=== PATIENT | male | born 1955 | race Two or more races ===

== ENCOUNTER 2024-07-01 16:40 | Inpatient (IN) | payer MEDICARE, SELFPAY ==
[2024-07-01 16:43] VITALS: BP 165/94; PULSE 75; RESP 20; TEMP 37.1; O2SAT 98; BMI 41.5
[2024-07-01 17:59] VITALS: PULSE 74; O2SAT 95; BMI 42.5
--- NOTE | 2024-07-01 18:10 | PD.EDEXREM ---
ED Extremity Problem RME/HPI General Chief complaint: Extremity Problem,Nontraumatic Stated complaint: RIGHT LEG WEAKNESS Time Seen by Provider: 07/01/24 18:08 Arrival date/time: 07/01/24 16:40 Limitations: no limitations RME / HPI RME / HPI Narrative: DR. CALLOWAY MAIN ED EVALUATION: 68-year-old male with past medical history significant for atrial fibrillation, drinks 12 beers daily, and chews tobacco presents to the Emergency Department BIBA with complaint of 3-day history of right lower extremity weakness. Related Data Home Medications ?Medication ?Instructions ?Recorded ?Confirmed cholecalciferol (vitamin D3) 50 50 mcg PO DAILY 07/01/24 07/01/24 mcg (2,000 unit) capsule diltiazem HCl 240 mg 480 mg PO Q24H 07/01/24 07/01/24 capsule,extended release 24 hr hydrochlorothiazide 12.5 mg tablet 12.5 mg PO DAILY 07/01/24 07/01/24 lisinopril 40 mg tablet 40 mg PO DAILY 07/01/24 07/01/24 rivaroxaban 20 mg tablet (Xarelto) 20 mg PO Q24H 07/01/24 07/01/24 Allergies Allergy/AdvReac Type Severity Reaction Status Date / Time No Known Allergies Allergy Verified 07/01/24 19:21 Review of Systems Review of Systems Systems Reviewed: All systems reviewed, normal except as documented Narrative Review of Systems: GEN: No fever, no chills, no weight loss EYES: No discharge, no visual changes, no pain HEENT: No ear pain, no congestion, no sore throat PULM: No shortness of breath, no cough, no congestion CV: No chest pain, no dyspnea on exertion, no palpitations GI: No nausea, no vomiting, no diarrhea, no pain, no constipation : No frequency, no urgency and no dysuria MUSC/SKEL: No joint pain, no back pain SKIN: No rash PSYCH: No hallucinations, no depression HEME/LYMPH: No easy bleeding or bruising tendencies NEURO: + right lower extremity weakness, no headache Past Medical History Past Medical History CARDIAC: Positive Atrial Fibrillation Social History SUBSTANCE USE: does not use ALCOHOL: Current (12 beers daily ) Past Medical History Comments PMH COMMENT: chewing tobacco ED Exam General Limitations: Present no limitations General appearance: Present alert, in no apparent distress and other (overweight) Head Head exam: Present atraumatic, normocephalic and normal inspection Eye Eye exam: Present normal appearance, PERRL and EOMI ENT ENT exam: Present normal exam, normal oropharynx and mucous membranes moist Neck Neck exam: Present normal inspection, full ROM and trachea midline Chest Chest inspection: Present normal inspection and symmetric chest wall rise Respiratory Respiratory exam: Present normal lung sounds bilaterally Cardiovascular Cardiovascular exam: Present regular rate, normal rhythm and normal heart sounds Abdominal Exam Abdominal exam: Present soft and normal bowel sounds Extremities Exam Extremities exam: Present normal inspection and full ROM Back Exam Back exam: Present normal inspection and full ROM Neurological Exam Neurological exam: Present alert, oriented X3 and CN II-XII intact Psychiatric Psychiatric exam: Present normal affect and normal mood Skin Skin exam: Present warm, dry, intact and normal color Course Quality Measures none Orders Category Date Time Status Miscellaneous Nursing Order X1 Care 07/01/24 18:[address] head/brain wo con Stat Exams 07/01/24 18:18 Completed CXRP [XR chest 1V portable] Stat Exams 07/01/24 18:20 Completed US liver Stat Exams 07/01/24 19:54 Completed BNP [B-Type Natriuretic Peptide] Stat Lab 07/01/24 18:22 Completed CBC Stat Lab 07/01/24 18:22 Completed CMP [Comprehensive Metabolic Panel] Stat Lab 07/01/24 18:22 Completed Drug Screen,Urine Stat Lab 07/01/24 18:19 Ordered Free T4 (Free Thyroxine) Stat Lab 07/01/24 18:22 Completed Osmolality, Urine* Stat Lab 07/01/24 Ordered PT [Prothrombin Time with INR] Stat Lab 07/01/24 18:22 Completed PTT [Partial Thromboplastin Time] Stat Lab 07/01/24 18:22 Completed Sodium,Urine Random Stat Lab 07/01/24 20:16 Completed Thyroid Stimulating Hormone Stat Lab 07/01/24 18:22 Completed Troponin I Stat Lab 07/01/24 18:22 Completed UA [Urinalysis] Stat Lab 07/01/24 20:16 Completed Urinalysis Stat Lab 07/01/24 18:13 Ordered Sodium Chloride 0.9% 500 ml [Ns] 500 ml Med 07/01/24 19:31 Discontinued IV 999 mls/hr Sodium Chloride 0.9% 500 ml [Ns] 500 ml Med 07/01/24 19:37 Discontinued IV 999 mls/hr Vital Signs Vital signs: Vital Signs Temperature 98.8 F 07/01/24 16:43 Pulse Rate 75 07/01/24 16:43 Respiratory Rate 20 07/01/24 16:43 Blood Pressure 165/94 H 07/01/24 16:43 Pulse Oximetry (%) 98 07/01/24 16:43 Oxygen Delivery Method Room Air 07/01/24 16:43 Extremity Problem MDM Narrative MDM Narrative:: Alona Gu am scribing for and in the presence of Dr. Calloway. Patient data External records reviewed:: EMS form Clinical information provided by:: patient and EMS Social determinants that could affect healthcare access:: other (specify) (drinks 12 beers daily, and chews tobacco) Patient has the following chronic illnesses:: Atrial fibrillation, drinks 12 beers daily, and chews tobacco How is presenting disease/condition affected by chronic disease/condition?: uneffected by Evaluation data The following diagnostics were reviewed and interpreted by me:: lab results and radiology exam(s) Lab and/or radiology exams considered but not ordered:: none Interpretation Summary: See above under MDM narrative. RADIOLOGY Procedure(s): US liver Accession Number(s): [id number] cc: Lan Martin MD; NO PRIMARY/FAMILY,PHYSICIAN; Mariusz Martin MD~ Examination: Abdomen sonogram, Limited Date and time of exam: July 01, 2024 2010 hours INDICATIONS: Elevated liver function tests on laboratory examination today Technique: Real-time person scale transabdominal sonographic images of the upper abdomen obtained. Findings: Normal gallbladder Normal common bile duct 0.42 cm Pancreatic head measures prominent 3.7 cm Liver 20.3 cm fatty infiltration Normal hepatopedal portal venous flow Patent IVC IMPRESSION: Normal gallbladder. Pancreas measures prominent, consider CT scan abdomen and pelvis postcontrast follow-up as clinically warranted. Moderate hepatomegaly fatty liver no focal liver lesions Dictated By: Lan Martin MD Procedure(s): CT head/brain wo con Accession Number(s): [id number] cc: Lan Martin MD; NO PRIMARY/FAMILY,PHYSICIAN; Su Calloway MD~ Examination: CT brain head without contrast. 2-D sagittal coronal reconstructions Date and time of exam:July 01, 2024 1844 hours INDICATIONS: Generalized weakness, right lower extremity weakness onset today CTDI: vol (mGy):63.1 DLP: (mGycm):1312 Technique: Multiple CT axial sections of the brain have been obtained, 5 mm slice thickness. Contrast has not been administered. 2-D sagittal, coronal reconstructions have been obtained Low dose protocols were performed. One or more of the following dose reduction techniques were used; automated exposure control, adjustment of the mA and/or KV according to patient size, use of iterative reconstruction technique. Findings: No significant ventricular enlargement. Small chronic subdural hygromas noted, on the right side at the level of the lateral ventricles measuring 8 mm in thickness, on the left side at the level of the lateral ventricles measuring 2 mm in thickness Intra-axial or extra-axial acute hemorrhage density is not seen. No mass effect or midline shift Basal cisterns are not remarkable. Fourth ventricle is midline. Cranial vault intact. Impression: Negative for acute hemorrhage, mass effect or midline shift If symptoms persist, consider brain MR I stroke protocol follow-up, as clinically warranted Dictated By: Lan Martin MD Procedure(s): XR chest 1V portable Accession Number(s): [id number] cc: Lan Martin MD; NO PRIMARY/FAMILY,PHYSICIAN; Su Calloway MD~ Examination: AP chest single view TECHNIQUE: AP portable chest single view. Examination time: July 01, 20242004 hours INDICATIONS: Shortness of breath today. FINDINGS: Mild prominence of ventricles Mild opacity at the lung bases and right perihilar region Moderate vascular congestion Osseous structures intact IMPRESSION: Early right perihilar and bibasilar pneumonia Dictated By: Lan Martin MD Medications / Prescriptions Medications or Prescriptions considered but not ordered:: none Medication administrations:: Medication Administration History Acetaminophen (Acetaminophen 325 Mg Tablet) 650 mg PO Q6H PRN PRN Reason: Fever >101.5 Stop: 07/31/24 20:03 Diltiazem HCl (Diltiazem Cd 120 Mg Capcr) 240 mg PO QDAY [facility] Stop: 08/01/24 08:59 Folic Acid (Folic Acid 1 Mg Tablet) 1 mg PO BID [facility] Stop: 07/06/24 20:59 Last Admin: 07/01/24 20:59 Dose: 1 mg Documented By: SVITLANA Lisinopril (Lisinopril 20 Mg Tablet) 40 mg PO QDAY [facility] Stop: 08/01/24 08:59 Lorazepam (Lorazepam 0.5 Mg Tablet) 0.5 mg PO Q4HR PRN PRN Reason: CIWA Score 2-6 Stop: 07/06/24 20:15 Lorazepam (Lorazepam 0.5 Mg Tablet) 1 mg PO Q4HR PRN PRN Reason: CIWA SCORE 7-11 Stop: 07/06/24 20:15 Lorazepam (Lorazepam 0.5 Mg Tablet) 2 mg PO Q4HR PRN PRN Reason: CIWA SCORE 12-15 Stop: 07/06/24 20:15 Lorazepam (Lorazepam 2 Mg/Ml Vial) 1 mg IV X1 PRN PRN Reason: Breakthrough Agitation Multivitamins (Multivitamins Tablet) 1 tab PO QDAY [facility] Stop: 08/01/24 08:59 Rivaroxaban (Rivaroxaban 10 Mg Tablet) 20 mg PO QDAY [facility] Stop: 08/01/24 08:59 Thiamine HCl (Thiamine 100 Mg Tablet) 100 mg PO BID [facility] Stop: 07/06/24 20:59 Last Admin: 07/01/24 20:59 Dose: 100 mg Documented By: SVITLANA Discontinued Medications Sodium Chloride (Ns) 500 mls @ 999 mls/hr IV .Q31M ONE Stop: 07/01/24 20:01 Last Admin: 07/01/24 20:22 Dose: Not Given Documented By: SVITLANA Non-Admin Reason: Discontinued Sodium Chloride (Ns) 500 mls @ 999 mls/hr IV .Q31M ONE Stop: 07/01/24 20:07 Last Infusion: 07/01/24 21:46 Dose: Infused Documented By: Admin: 07/01/24 20:21 Dose: 999 mls/hr Documented By: SVITLANA see above if any Consultations Consultation(s) initiated? (list below): Yes Consultation #1 (Physician, Specialty, Details): Discussed test HPI, PMHx, lab, radiology results and/or management with hospitalist Dr. Martin. Will admit for further evaluation and management. Accepts patient for admission. Time: 20:04 Diagnosis Extremity Problem Differential Diagnosis: cellulitis, deep vein thrombosis of lower extremity and other (Generalized weakness, sepsis) Most likely diagnosis given after review of the tests above:: Hyponatremia Generalized weakness Admission Indicated Admission indicated?: indicated Admission Request Was there a request for admission?: Yes Admission Attestation Admission request attestation: Discussed case with [] from Hospitalist service regarding admission. Discussed patients ED course, exam findings, labs, and radiology results. The Hospitalist [agrees,declines] to accept the patient for admission. Disposition Plan Disposition Plan: Admit Discharge Plan Plan Patient Disposition: Admit Acute Care w/in Hospital Problem List Clinical Impression: Hyponatremia, Generalized weakness
--- NOTE | 2024-07-01 18:18 | XR_ITS ---
Examination: CT brain head without contrast. 2-D sagittal coronal reconstructions Date and time of exam:July 01, 2024 1844 hours INDICATIONS: Generalized weakness, right lower extremity weakness onset today CTDI: vol (mGy):63.1 DLP: (mGycm):1312 Technique: Multiple CT axial sections of the brain have been obtained, 5 mm slice thickness. Contrast has not been administered. 2-D sagittal, coronal reconstructions have been obtained Low dose protocols were performed. One or more of the following dose reduction techniques were used; automated exposure control, adjustment of the mA and/or KV according to patient size, use of iterative reconstruction technique. Findings: No significant ventricular enlargement. Small chronic subdural hygromas noted, on the right side at the level of the lateral ventricles measuring 8 mm in thickness, on the left side at the level of the lateral ventricles measuring 2 mm in thickness Intra-axial or extra-axial acute hemorrhage density is not seen. No mass effect or midline shift Basal cisterns are not remarkable. Fourth ventricle is midline. Cranial vault intact. Impression: Negative for acute hemorrhage, mass effect or midline shift If symptoms persist, consider brain MR I stroke protocol follow-up, as clinically warranted
--- NOTE | 2024-07-01 18:20 | XR_ITS ---
Examination: AP chest single view TECHNIQUE: AP portable chest single view. Examination time: July 01, 2024 2005 hours INDICATIONS: Shortness of breath today. FINDINGS: Mild prominence of ventricles Mild opacity at the lung bases and right perihilar region Moderate vascular congestion Osseous structures intact IMPRESSION: Early right perihilar and bibasilar pneumonia
[2024-07-01 18:37] LABS: Basophils % (Auto) 1 % (0-2.5); Eosinophils # (Auto) 0.1 Thou/mm3 (0.0-0.5); Eosinophils % (Auto) 1 % (0-10); Hematocrit 36.4 % (41.0-53.0); Hemoglobin 13.9 g/dL (13.5-16.0); Immature Granulocytes % (Auto) 1 % (0-0); Immature Granulocytes Auto 0.06 Thou/mm3 (0.00-0.00); Lymphocytes # (Auto) 0.8 Thou/mm3 (1.0-4.8); Lymphocytes % (Auto) 12 % (10-50); Mean Corpuscular HGB Conc 38.2 g/dl (31.0-37.0); Mean Corpuscular Hemoglobin 34.1 pg (25.0-35.0); Mean Corpuscular Volume 89 fL (80-100); Monocytes % (Auto) 14 % (0-12); Neutrophils # (Auto) 5.2 Thou/mm3 (1.8-7.7); Neutrophils % (Auto) 73 % (37-80); Nucleated Red Blood Cell % 0 /100 WBC (0); Platelet Count 176 Thou/mm3 (140-440); RDW Standard Deviation 40.4 fL (35.1-43.9); Red Blood Count 4.08 Miln/mm3 (4.50-5.90); White Blood Count 7.1 Thou/mm3 (3.8-10.6)
[2024-07-01 18:52] LABS: B-Type Natriuretic Peptide 60 pg/mL (0-100)
[2024-07-01 18:55] LABS: Alanine Aminotransferase 93 U/L (10-49); Albumin/Globulin Ratio 1.2 (1.2-2.2); Alkaline Phosphatase 72 U/L (46-116); Aspartate Amino Transferase 146 U/L (0-34); BUN/Creatinine Ratio 8 Ratio (12-20); Bilirubin,Total 1.7 mg/dL (0.3-1.2); Blood Urea Nitrogen < 5 mg/dL (9-23); Calcium 8.9 mg/dL (8.3-10.6); Calcium (Corrected) 8.9 mg/dL (8.5-10.1); Carbon Dioxide 20.5 mMol/L (20.0-31.0); Creatinine (Component) 0.6 mg/dL (0.6-1.3); Globulin 3.4 gm/dL (2.3-3.5); Glucose 96 mg/dL (74-106); Total Protein 7.4 gm/dL (5.7-8.2); Troponin I < 0.020 ng/mL (0.0-0.045); eGFR > 60 See Note
[2024-07-01 19:19] LABS: Anion Gap 11 (7-16); Chloride 78 mMol/L (98-107); Osmolality,Calculated 218 (275-295); Sodium 109 mMol/L (136-145)
--- NOTE | 2024-07-01 19:31 | EVENTNT_ITS ---
Documentation for date of: 07/01/24 Event Note Event Note: A 68 y/o male presented to the ER with the chief complaint of numbness in the right ankle/heel. He reported that the right ankle began to feel numb, which was associated with difficulty ambulating. He fell approximately four to five times yesterday while trying to walk, and noted that one leg did not seem strong enough to support him, leading to imbalance. He denied experiencing dizziness or head trauma during these events. The patient has a history of AFib and HTN, as well as chronic alcohol abuse. He previously underwent carpal tunnel surgery. Current medications include Lisinopril, Diltiazem, Xarelto, Hydrochlorothiazide, and Vitamin D. Social history is significant for heavy daily alcohol consumption (approximately a 12 pack daily over 10 years) and living alone. In the ER, vital signs were recorded as temp 98.8 F, HR 75, RR 20, and BP 165/94 with a GCS of 15. Laboratory results revealed sodium 109 (L), chloride 78 (L), WBC 7.1, hemoglobin 13.9, platelets 176, INR 1.5, potassium 4, BUN <5, creatinine 0.6, glucose 96, total bilirubin 1.7, AST 146 (H), and ALT 93 (H). Head CT negative for acute hemorrhage, mass effect or midline shift. The patient was admitted for management of hyponatremia. Hyponatremia #Assessment: - Likely chronic hyponatremia (Na 109) in the context of heavy alcohol use (beer potomania) and HCTZ use. - Normovolemic on exam, euvolemic labs, no acute neurologic symptoms, GCS 15. - LFTs elevated (AST > ALT), suggestive of alcoholic liver injury. #Plan: - Hold HCTZ. - Fluid restriction to 800?1000 mL/day. - Monitor serum sodium q4h, avoid correction >8 mEq/L/24h. - Repeat labs at midnight: BMP. - Get urine sodium, urine osmolality. - Monitor strict I&Os, daily weights. - Consider DDAVP clamp if rapid correction noted. - Check TSH, free T4. Alcohol Use Disorder #Assessment: - Chronic alcohol use (12-pack/day x10 years), at risk for withdrawal, malnutrition, hepatic injury. - Elevated AST/ALT (AST>ALT), mild hyperbilirubinemia. - Lives alone, limited social support. #Plan: - CIWA protocol for withdrawal monitoring. - Administer thiamine, folate, multivitamins. - [facility] protocol. - Liver US. Atrial Fibrillation - Continue Xarelto.
[2024-07-01 19:33] LABS: INR 1.5 (0.9-1.3); Partial Thromboplastin Time 43.6 Seconds (22.0-36.0); Prothrombin Time 15.6 Seconds (9.0-12.2)
--- NOTE | 2024-07-01 19:54 | XR_ITS ---
Examination: Abdomen sonogram, Limited Date and time of exam: July 01, 2024 2010 hours INDICATIONS: Elevated liver function tests on laboratory examination today Technique: Real-time person scale transabdominal sonographic images of the upper abdomen obtained. Findings: Normal gallbladder Normal common bile duct 0.42 cm Pancreatic head measures prominent 3.7 cm Liver 20.3 cm fatty infiltration Normal hepatopedal portal venous flow Patent IVC IMPRESSION: Normal gallbladder. Pancreas measures prominent, consider CT scan abdomen and pelvis postcontrast follow-up as clinically warranted. Moderate hepatomegaly fatty liver no focal liver lesions
--- NOTE | 2024-07-01 20:07 | EKG_ITS ---
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1955 Requested By: Mariusz Corey Order Number: [id number] Reading MD: Mariusz Corey Measurements Intervals [place] Rate: 63 P: 246 MD: 145 QRS: -57 QRSD: 200 T: -30 QT: 512 QTc: 525 Interpretive Statements ECTOPIC ATRIAL RHYTHM WITH OCCASIONAL VENTRICULAR PREMATURE COMPLEXES RIGHT BUNDLE BRANCH BLOCK [120+ ms QRS DURATION, UPRIGHT V1, 40+ ms S IN I/aVL/V4/V5/V6] LEFT ANTERIOR FASCICULAR BLOCK [QRS AXIS <= -45, QR IN I, RS IN II] ST DEVIATION AND MODERATE T-WAVE ABNORMALITY, CONSIDER LATERAL ISCHEMIA [-0.1+ mV T-WAVE IN I/aVL/V5/V6] No previous ECG available for comparison /store/S0/[id number].pdf
[2024-07-01] MEDS: SODIUM CHLORIDE 0.9% 500 ML 500 ML 999 ML IV (20:21)
[2024-07-01 20:33] LABS: Collection Type, Urine Clean Catch
[2024-07-01 20:35] LABS: Free T4 (Free Thyroxine) 1.44 ng/dL (0.89-1.76); Thyroid Stimulating Hormone 0.98 uIU/mL (0.55-4.78)
--- NOTE | 2024-07-01 20:39 | ESHP_ITS ---
Documentation for date of: 07/01/24 HPI History of Present Illness History of present illness: Christina is a 68 y/o male with PMHx hypertension, hyperlipidemia, morbid obesity, A- fib (on Xarelto) who comes for an evaluation of right foot weakness, numbness and tingling and after having multiple ground-level falls. Patient reports he has never had symptoms like this before. He reports that 3 days ago he started having the symptoms of weakness in his right foot and felt that his gait was being impaired and felt like he was susceptible to falling. He reports that he had 4 falls in and outside the house, with no head trauma. He is unsure why that his foot has been having some weakness. He said that he decided to come down to see his sister because he felt like he could not take care of himself at home as he lives in [facility] and his sister lives here. He says that he normally eats well, however lately has been eating less and usually likes to cook on his own and make soup and a variety of things. 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 He says that he has had low sodium levels before. He also says that since 10 PM yesterday he has had about 12 beers and that he has been drinking heavy for the past 10 years about a 12 pack every night. Denies having any chest pain, shortness of breath, vomiting, headache, visual or auditory hallucinations or feeling as if his heart is racing. He denies any recent travel or sick contacts. He is not diabetic. No other complaints at this time ED Course: He arrived to the ED with a temperature of 98.8, heart rate 75, respiratory rate 20, blood pressure 165/94, saturating 98% on room air. He was worked up was found to have a sodium level of 109, potassium 4, chloride 78, bicarb 21, BUN/creatinine of 5 and 0.6 respectively, glucose 96, white count 7.4, hemoglobin 14, osmolarity 218, calcium 9.8, AST ALT 146 and 98 respectively, troponin negative x 1, T. bili 1.7, PT 15.6, INR 1.5, PTT 43.6, urinalysis showed random sodium of 17. Head CT was negative for acute hemorrhage, mass effect or midline shift. Chest x-ray showed early bibasilar and right perihilar Pneumonia. He was given 1 L bolus NS. Medicine was consulted and patient admitted to the floors. PMHx: As above Surgeries: Carpal tunnel surgery Meds: Hydrochlorothiazide 12.5, lisinopril 40 mg, Cardizem 240 mg 2 tabs once a day, vitamin D3, Xarelto 20 mg Allergies: No known allergies Family Hx: He is adopted however he knows that his dad had a heart attack in his 30s and in his early 60s. His mom of a stroke in her early 70s. He says his sister has trigeminal neuralgia and osteoarthritis. Social Hx: He grew up in [place], has 2 kids, one son and daughter, his son . He worked as a [employer] and is recently retired. He has been a heavy drinker all his life, however has drink really heavy for the past 10 years. Denies any drug history. Smoked about half a pack a day for 20 years, however he does not smoke but he chews tobacco currently. Review of Systems Review of Systems Narrative Review of Systems: Constitutional: No fever, chills, fatigue, weakness, weight loss HEENT: No eye pain, vision loss, ear pain, hearing loss, dysphagia, Cardiovascular: No chest pain, palpitations, edema, pain with walking Respiratory: No cough, shortness of breath, wheezing GI: No NVD, abdominal pain, constipation, blood in stool, loss of appetite, heartburn Extremities: No presence of pitting edema MSK: No back pain, joint pain, joint swelling Neuro: No dizziness, positive right foot numbness, positive right foot weakness, headaches, seizures, tremors Psych: No anxiety, depression Exam Vital Signs Temp Pulse Resp BP Pulse Ox O2 Del Method 98.8 F 75 20 165/94 H 98 Room Air 07/01/24 16:43 07/01/24 16:43 07/01/24 16:43 07/01/24 16:43 07/01/24 16:43 07/01/24 16:43 Narrative Exam General: AAOx3, NAD, morbidly obese male, bearded. HEENT: Moist mucous membranes, conjunctiva clear, EOMI, PERRLA. Cardiovascular: Possible murmur heard over left upper sternal border, radial pulses +2 bilat, RRR. Pulmonary: CTAB bilat no cough, no wheezing. GI: Slight distention of abdomen, no caput medusae, bowel sounds heard, no tenderness to palpation. Extremities: No presence of trace or pitting edema in lower extremities bilaterally, dorsalis pedis pulses +2 bilaterally. Neuro: AAOx3, no focal motor or sensory deficits in the UE or LE bilat, R foot has no focal or sensory deficits at this time. Psych: Good judgement, thought and behavior. Cooperative. No active visual or auditory hallucinations. Results: Labs 07/01/24 18:22 07/02/24 01:03 Labs: Short CBC 07/01/24 Range/Units 18:22 WBC 7.1 (3.8-10.6) Thou/mm3 Hgb 13.9 (13.5-16.0) g/dL Hct 36.4 L (41.0-53.0) % Plt Count 176 (140-440) Thou/mm3 BMP 07/01/24 18:22 Sodium 109 L* Potassium 4.0 Chloride 78 L* Carbon Dioxide 20.5 BUN < 5 L Creatinine 0.6 Glucose 96 Calcium 8.9 Cardiac Enzymes 07/01/24 Range/Units 18:22 Troponin I < 0.020 (0.0-0.045) ng/mL Liver Function 07/01/24 Range/Units 18:22 Total Bilirubin 1.7 H (0.3-1.2) mg/dL AST 146 H (0-34) U/L ALT 93 H (10-49) U/L Alkaline Phosphatase 72 (46-116) U/L Albumin 4.0 (3.4-4.8) gm/dL Quality Measures Quality Measures none Advance care planning discussed with:: patient and sibling Medications Home Medications and Allergies Home Medications ?Medication ?Instructions ?Recorded ?Confirmed ?Type cholecalciferol (vitamin D3) 50 50 mcg PO DAILY 07/01/24 History mcg (2,000 unit) capsule diltiazem HCl 240 mg 480 mg PO Q24H 07/01/2406/05 History capsule,extended release 24 hr hydrochlorothiazide 12.5 mg tablet 12.5 mg PO DAILY 07/01/24 History lisinopril 40 mg tablet 40 mg PO DAILY 07/01/2406/05 History rivaroxaban 20 mg tablet (Xarelto) 20 mg PO Q24H 07/0107/01/24 History Allergies Allergy/AdvReac Type Severity Reaction Status Date / Time No Known Allergies Allergy Verified 07/01/24 19:21 Visit Medications Acetaminophen (Acetaminophen 325 Mg Tablet) 650 mg PO Q6H PRN PRN Reason: Fever >101.5 Stop: 07/31/24 20:03 Diltiazem HCl (Diltiazem Cd 120 Mg Capcr) 240 mg PO QDAY [facility] Stop: 08/01/24 08:59 Folic Acid (Folic Acid 1 Mg Tablet) 1 mg PO BID [facility] Stop: 07/06/24 20:59 Lisinopril (Lisinopril 20 Mg Tablet) 40 mg PO QDAY [facility] Stop: 08/01/24 08:59 Lorazepam (Lorazepam 0.5 Mg Tablet) 0.5 mg PO Q4HR PRN PRN Reason: CIWA Score 2-6 Stop: 07/06/24 20:15 Lorazepam (Lorazepam 0.5 Mg Tablet) 1 mg PO Q4HR PRN PRN Reason: CIWA SCORE 7-11 Stop: 07/06/24 20:15 Lorazepam (Lorazepam 0.5 Mg Tablet) 2 mg PO Q4HR PRN PRN Reason: CIWA SCORE 12-15 Stop: 07/06/24 20:15 Lorazepam (Lorazepam 2 Mg/Ml Vial) 1 mg IV X1 PRN PRN Reason: Breakthrough Agitation Multivitamins (Multivitamins Tablet) 1 tab PO QDAY [facility] Stop: 08/01/24 08:59 Rivaroxaban (Rivaroxaban 10 Mg Tablet) 20 mg PO QDAY [facility] Stop: 08/01/24 08:59 Thiamine HCl (Thiamine 100 Mg Tablet) 100 mg PO BID [facility] Stop: 07/06/24 20:59 Discontinued Medications Sodium Chloride (Ns) 500 mls @ 999 mls/hr IV .Q31M ONE Stop: 07/01/24 20:01 Last Admin: 07/01/24 20:22 Dose: Not Given Sodium Chloride (Ns) 500 mls @ 999 mls/hr IV .Q31M ONE Stop: 07/01/24 20:07 Last Admin: 07/01/24 20:21 Dose: 999 mls/hr Assessment & Plan Plan Assessment Christina is a 68 y/o male with PMHx hypertension, hyperlipidemia, morbid obesity, A- fib (on Xarelto) who is admitted for acute on chronic severe hyponatremia. #Acute on Chronic severe Hyponatremia Likely chronic hyponatremia (Na 109) in the context of heavy alcohol use (beer potomania) and HCTZ use. Normovolemic on exam, euvolemic labs, no acute neurologic symptoms, GCS 15. LFTs elevated (AST > ALT), suggestive of alcoholic liver injury. Pt is not altered at this point, AAOx3, however will still require frequent sodium checks Plan: - Hold HCTZ. - Fluid restriction to 800?1000 mL/day. - Monitor serum sodium q4h, avoid correction >8 mEq/L/24h. - Trend Sodium - Get urine sodium, urine osmolality. - Monitor strict I&Os, daily weights. - Consider DDAVP clamp if rapid correction noted. - Check TSH, free T4 - Neurochecks - Seizure precautions #A-fib [id number]: 3 Rate: Controlled Rhythm: Regular at this point AC: Xarleto 20 Unsure pt's heart failure status No echo on file Plan: - Continue with Xarelto 20 mg qday - Keep magnesium and potasium above 2 and 4 respectively to avoid any cardiac arrythmias - Consider cardio consult #Elevated transaminases #Prominent pancreatic head #Alcohol Use Disorder Chronic alcohol use (12-pack/day x10 years), at risk for withdrawal, malnutrition, hepatic injury. Elevated AST/ALT (AST>ALT 2:1 in alcoholic fashion), mild hyperbilirubinemia, PT/INR slightly elevated Lives alone, limited social support. Plan: - [facility] protocol for withdrawal monioring. - Administer thiamine, folate, multivitamins - [facility] protocol - Liver US - Consider GI consult - Consider MRI liver - Trend LFTs #Hypertension #Hyperlipidemia Chronic Not taking statin Plan: ? Holding blood pressure medicines as blood pressures soft at this point ? F/u Lipid panel #Hx of NISREEN #Hx of morbid obesity Plan: - Resumed CPAP HS #Nicotine dependence Plan: - Nicotine patch - Discussed smoking cessation - Consider Chantix outpatient #Health Maintenance Disposition: Telemetry DVT prophylaxis: Xarelto GI prophylaxis: None indicated at this time Diet: Cardiac CODE STATUS: Full Patient seen and care discussed with my attending physician, Dr. Mario Michel, PGY-1 Attending Provider Attestation/Addendum Pt was evaluated and plan formulated together with the housestaff team. I have reviewed the residents note above and agree with most of its content. Please refer to the residents note for additional details.
[2024-07-01 20:53] LABS: Bacteria,Urine 4+; Bilirubin,Urine Negative (Negative); Blood,Urine Negative (Negative); Clarity,Urine Turbid (Clear/Hazy); Color,Urine Yellow (Lt Yel-Yel); Glucose, Urine Negative (Negative); Ketones,Urine Trace (Negative); Leukocyte Esterase,Urine Negative (Negative); Nitrite,Urine Negative (Negative); Protein,Urine Negative (Neg - Trace); RBC,Urine 2 /hpf (0-3); Specific Gravity,Urine 1.011 (1.001-1.035); Squamous Epithelial Cell,Urine 1 /hpf (0-5); WBC,Urine 4 /hpf (0-5)
[2024-07-01] MEDS: THIAMINE 100 MG TABLET PO (20:59)
[2024-07-01] MEDS: FOLIC ACID 1 MG TABLET PO (20:59)
[2024-07-01 21:08] VITALS: BP 114/63; PULSE 63; RESP 19; O2SAT 99
[2024-07-01 22:45] VITALS: BP 141/90; PULSE 66; RESP 18; TEMP 36.3; O2SAT 98
[2024-07-01 23:14] LABS: Sodium 111 mMol/L (136-145)
[2024-07-02] VITALS (9 sets, daily range): BP systolic 119–145; BP diastolic 70–91; PULSE 53–279; RESP 14–38; TEMP 36.1–36.3; O2SAT 95–99; BMI 43.9
[2024-07-02 01:30] LABS: Sodium 110 mMol/L (136-145)
[2024-07-02] MEDS: NICOTINE PATCH 14 MG/24 HR PATCH.TD24 TOP (01:53)
[2024-07-02 03:58] LABS: Sodium 112 mMol/L (136-145)
[2024-07-02 05:53] LABS: Basophils % (Auto) 1 % (0-2.5); Eosinophils # (Auto) 0.1 Thou/mm3 (0.0-0.5); Eosinophils % (Auto) 2 % (0-10); Hemoglobin 13.6 g/dL (13.5-16.0); Immature Granulocytes % (Auto) 1 % (0-0); Immature Granulocytes Auto 0.03 Thou/mm3 (0.00-0.00); Lymphocytes # (Auto) 0.7 Thou/mm3 (1.0-4.8); Lymphocytes % (Auto) 12 % (10-50); Mean Corpuscular HGB Conc 37.8 g/dl (31.0-37.0); Mean Corpuscular Hemoglobin 34.1 pg (25.0-35.0); Mean Corpuscular Volume 90 fL (80-100); Monocytes # (Auto) 0.7 Thou/mm3 (0.0-0.8); Monocytes % (Auto) 13 % (0-12); Neutrophils # (Auto) 4.1 Thou/mm3 (1.8-7.7); Neutrophils % (Auto) 72 % (37-80); Nucleated Red Blood Cell % 0 /100 WBC (0); Platelet Count 143 Thou/mm3 (140-440); RDW Standard Deviation 41.1 fL (35.1-43.9); Red Blood Count 3.99 Miln/mm3 (4.50-5.90); White Blood Count 5.7 Thou/mm3 (3.8-10.6)
[2024-07-02 06:07] LABS: Glucose Estimated Average 100 mg/dL (80-131); Hemoglobin A1C 5.1 % Hgb (4.8-6.0)
[2024-07-02 06:30] LABS: Cardiac Risk Estimate 2.2 RATIO (4.0-6.7); Cholesterol 110 mg/dL (132-200); HDL Cholesterol 51 mg/dL (40-60); LDL Cholesterol,Calculated 47 mg/dL (0-130); Thyroid Stimulating Hormone 1.37 uIU/mL (0.55-4.78); Triglycerides 58 mg/dL (30-150)
[2024-07-02 06:35] LABS: Sodium 114 mMol/L (136-145)
[2024-07-02] MEDS: DEXTROSE 5%-WATER 500 ML 250 ML IV (07:14)
[2024-07-02 08:07] LABS: Alanine Aminotransferase 89 U/L (10-49); Albumin, Serum 3.8 gm/dL (3.4-4.8); Albumin/Globulin Ratio 1.2 (1.2-2.2); Alkaline Phosphatase 74 U/L (46-116); Anion Gap 6 (7-16); Aspartate Amino Transferase 135 U/L (0-34); BUN/Creatinine Ratio 7 Ratio (12-20); Bilirubin,Total 2.5 mg/dL (0.3-1.2); Blood Urea Nitrogen 5 mg/dL (9-23); Calcium 8.5 mg/dL (8.3-10.6); Calcium (Corrected) 8.7 mg/dL (8.5-10.1); Carbon Dioxide 23.8 mMol/L (20.0-31.0); Chloride 85 mMol/L (98-107); Creatinine (Component) 0.7 mg/dL (0.6-1.3); Globulin 3.2 gm/dL (2.3-3.5); Glucose 102 mg/dL (74-106); Osmolality,Calculated 230 (275-295); Potassium 3.7 mMol/L (3.4-5.1); eGFR > 60 See Note
[2024-07-02 08:09] LABS: Sodium 115 mMol/L (136-145)
[2024-07-02] MEDS: DILTIAZEM CD 120 MG CAPCR 240 MG PO (08:12)
[2024-07-02] MEDS: DESMOPRESSIN ACETATE 4 MCG/ML VIAL IV (08:13)
[2024-07-02] MEDS: FOLIC ACID 1 MG TABLET PO ×2 (08:13→20:40)
[2024-07-02] MEDS: MULTIVITAMINS TABLET 1 TAB PO (08:13)
[2024-07-02] MEDS: THIAMINE 100 MG TABLET PO ×2 (08:13→20:40)
[2024-07-02] MEDS: Lisinopril 20 MG TABLET 40 MG PO (08:13)
[2024-07-02 09:09] LABS: Collection Type, Urine Catheter; Squamous Epithelial Cell,Urine 0 /hpf (0-5)
[2024-07-02 09:23] LABS: Sodium 116 mMol/L (136-145)
--- NOTE | 2024-07-02 09:42 | ESCONSULT_ITS ---
<Statement entered by Miguel Ángel Fitzpatrick MD - 07/03/24 11:22> TOTAL CC TIME: 45 MIN I saw and evaluated the patient. I reviewed the resident?s note and agree with findings and plan as documented in the resident?s note. Upon my evaluation, this patient had a high probability of imminent or life- threatening deterioration due to severe hyponatremia which required my direct attention, intervention, and personal management. This time is exclusive of time spent on procedures, which are documented separately if performed. Patient has severe hyponatremia and this is likely multifactorial due to beer potomania as well as hydrochlorothiazide. Agree with the current medical therapy. Agree with DDAVP and D5W as ordered and completed. Monitor urine output carefully. Slight overcorrection noted in which should be reduced with the current free water. If subsequent sodium levels are acceptable, please consider changing labs to every 4 hours. appropriate alcohol withdrawal medications have been ordered and to be administered based on CIWA monitoring. Should the patient clinical condition worsen we will be triaged to the ICU. Nurse was informed to keep the bed rails up and fix the padding on the side rails as her seizure precaution orders ICU team will continue to follow along with you HPI Data of Consult Requesting Physician: Mariusz Martin MD Admitting Provider: Mariusz Martin MD Attending Provider: Mariusz Martin MD Primary Care Provider: Physician No Primary/Family Consult Narrative History of present illness: The patient is a 68-year-old male with a past medical history of hypertension, hyperlipidemia, morbid obesity, and atrial fibrillation on Xarelto. He presented overnight with right foot weakness, numbness, and tingling. Initial labs revealed severe hyponatremia (Na 109). He also has a history of alcohol abuse, consuming approximately 12 beers daily for the past 10 years, with his last drink being yesterday. The patient denied chest pain, shortness of breath, vomiting, headache, or visual/auditory hallucinations. Home medications include hydrochlorothiazide (a potential contributor to hyponatremia), lisinopril, Cardizem, and Xarelto. ED Course: Hemodynamically stable, saturating well on room air. Labs: Hypochloremic hypoosmolar hyponatremia, mild transaminitis likely secondary to alcohol use. Head CT: Negative for acute hemorrhage, mass, or midline shift. Management: Received 500L normal saline in the ED and was admitted for further management of hyponatremia. cc:: cc: Mariusz Martin MD Review of Systems Review of Systems Systems Reviewed: All systems reviewed, normal except as documented Exam Vital Signs Temp Pulse Resp BP Pulse Ox O2 Del Method 97.1 F 82 38 H 145/91 H 98 Room Air 07/02/24 08:00 07/02/24 08:13 07/02/24 08:00 07/02/24 08:13 07/02/24 08:00 07/02/24 08:00 Narrative Exam GENERAL: no acute distress, AAO x3, obese HEENT: Head AT/ NC. Mucous membranes moist. PERRL. NECK: Supple, no lymphadenopathy, no carotid bruits. CARDIOVASCULAR: RRR. Normal S1/S2, No m/r/g. No pitting edema of bilateral LEs. RESPIRATORY: CTAB. No wheezing, rhonchi, crackles. GASTROINTESTINAL: Abdomen soft, non tender no palpable masses. Bowel sounds present in all 4 quadrants. MUSCULOSKELETAL:? No cyanosis or edema, no visible joint swelling. NEUROLOGICAL: CN II-XII grossly intact. No focal deficits. Sensation intact, symmetric. PSYCHIATRIC: Awake and alert, not agitated, normal mood and affect. INTEGUMENTARY: No obvious rashes, no jaundice, normal turgor. Results Labs 07/02/24 04:55 07/02/24 08:56 Labs: Short CBC 07/01/24 07/02/24 Range/Units 18:22 04:55 WBC 7.1 5.7 (3.8-10.6) Thou/mm3 Hgb 13.9 13.6 (13.5-16.0) g/dL Hct 36.4 L 36.0 L (41.0-53.0) % Plt Count 176 143 D (140-440) Thou/mm3 BMP 07/01/24 07/01/24 07/02/24 18:22 22:47 01:03 Sodium 109 L* 111 L* 110 L* Potassium 4.0 Chloride 78 L* Carbon Dioxide 20.5 BUN < 5 L Creatinine 0.6 Glucose 96 Calcium 8.9 07/02/24 07/02/24 07/02/24 03:05 04:55 07:18 Sodium 112 L* 114 L* Cancelled Potassium Chloride Carbon Dioxide BUN Creatinine Glucose Calcium 07/02/24 07/02/24 07:18 08:56 Sodium 115 L* 116 L* Potassium 3.7 Chloride 85 L Carbon Dioxide 23.8 BUN 5 L Creatinine 0.7 Glucose 102 Calcium 8.5 Cardiac Enzymes 07/01/24 Range/Units 18:22 Troponin I < 0.020 (0.0-0.045) ng/mL Liver Function 07/01/24 07/02/24 Range/Units 18:22 07:18 Total Bilirubin 1.7 H 2.5 H D (0.3-1.2) mg/dL AST 146 H 135 H (0-34) U/L ALT 93 H 89 H (10-49) U/L Alkaline Phosphatase 72 74 (46-116) U/L Albumin 4.0 3.8 (3.4-4.8) gm/dL Urine 07/01/24 Range/Units 20:16 Urine Color Yellow (Lt Yel-Yel) Urine Clarity Turbid A (Clear/Hazy) Urine pH 6.0 (5.0-7.0) Ur Specific [facility] 1.011 (1.001-1.035) Urine Protein Negative (Neg - Trace) Urine Glucose (UA) Negative (Negative) Quality Measures Quality Measures none Advance care planning discussed with:: patient Medications Home Medications and Allergies Home Medications ?Medication ?Instructions ?Recorded ?Confirmed ?Type cholecalciferol (vitamin D3) 50 50 mcg PO DAILY 07/01/24 History mcg (2,000 unit) capsule diltiazem HCl 240 mg 480 mg PO Q24H 07/01/2406/05 History capsule,extended release 24 hr hydrochlorothiazide 12.5 mg tablet 12.5 mg PO DAILY 07/01/24 History lisinopril 40 mg tablet 40 mg PO DAILY 07/01/2406/05 History rivaroxaban 20 mg tablet (Xarelto) 20 mg PO Q24H 07/0107/01/24 History Allergies Allergy/AdvReac Type Severity Reaction Status Date / Time No Known Allergies Allergy Verified 07/01/24 19:21 Visit Medications Acetaminophen (Acetaminophen 325 Mg Tablet) 650 mg PO Q6H PRN PRN Reason: Fever >101.5 Stop: 07/31/24 20:03 Diltiazem HCl (Diltiazem Cd 120 Mg Capcr) 240 mg PO QDAY [facility] Stop: 08/01/24 08:59 Last Admin: 07/02/24 08:12 Dose: 240 mg Folic Acid (Folic Acid 1 Mg Tablet) 1 mg PO BID [facility] Stop: 07/06/24 20:59 Last Admin: 07/02/24 08:13 Dose: 1 mg Dextrose (D5w) 500 mls @ 75 mls/hr IV .Q6H40M [facility] Stop: 07/03/24 09:29 Lisinopril (Lisinopril 20 Mg Tablet) 40 mg PO QDAY [facility] Stop: 08/01/24 08:59 Last Admin: 07/02/24 08:13 Dose: 40 mg Lorazepam (Lorazepam 0.5 Mg Tablet) 0.5 mg PO Q4HR PRN PRN Reason: CIWA Score 2-6 Stop: 07/06/24 20:15 Lorazepam (Lorazepam 0.5 Mg Tablet) 1 mg PO Q4HR PRN PRN Reason: CIWA SCORE 7-11 Stop: 07/06/24 20:15 Lorazepam (Lorazepam 0.5 Mg Tablet) 2 mg PO Q4HR PRN PRN Reason: CIWA SCORE 12-15 Stop: 07/06/24 20:15 Lorazepam (Lorazepam 2 Mg/Ml Vial) 1 mg IV X1 PRN PRN Reason: Breakthrough Agitation Multivitamins (Multivitamins Tablet) 1 tab PO QDAY [facility] Stop: 08/01/24 08:59 Last Admin: 07/02/24 08:13 Dose: 1 tab Rivaroxaban (Rivaroxaban 10 Mg Tablet) 20 mg PO WSUPPER [facility] Stop: 08/01/24 17:29 Thiamine HCl (Thiamine 100 Mg Tablet) 100 mg PO BID [facility] Stop: 07/06/24 20:59 Last Admin: 07/02/24 08:13 Dose: 100 mg Discontinued Medications Desmopressin Acetate (Desmopressin Acetate 4 Mcg/Ml Vial) 4 mcg IV X1 ONE Stop: 07/02/24 07:17 Last Admin: 07/02/24 08:13 Dose: 4 mcg Sodium Chloride (Ns) 500 mls @ 999 mls/hr IV .Q31M ONE Stop: 07/01/24 20:01 Last Admin: 07/01/24 20:22 Dose: Not Given Sodium Chloride (Ns) 500 mls @ 999 mls/hr IV .Q31M ONE Stop: 07/01/24 20:07 Last Infusion: 07/01/24 21:46 Dose: Infused Dextrose (D5w) 500 mls @ 250 mls/hr IV .Q2H [facility] Stop: 07/02/24 09:14 Last Admin: 07/02/24 07:14 Dose: 250 mls/hr Nicotine (Nicotine Patch 14 Mg/24 Hr Patch.Td24) 14 mg TOP X1 ONE Stop: 07/01/24 23:10 Last Admin: 07/02/24 01:53 Dose: 14 mg Assessment & Plan Plan 68-year-old male with past medical history of hypertension on hydrochlorothiazide, hyperlipidemia, morbidly obese, A-fib on Xarelto who was admitted for severe hypochloremic hyponatremia most likely secondary due to periorbital pneumonia combined with medication side effect. ICU Consultation (07/02/2024): The ICU team was consulted due to severe hyponatremia and concern for rapid overcorrection. -Overnight Course: No acute events. -Serum sodium increased by 6 mEq over 12 hours (109 - 115)-concern for overcorrection -Primary team intervened with 1 dose of desmopressin (DDAVP) and 500 mL D5W. ICU Team Recommendations: Acute hypoosmolar hypochloremic hyponatremia Beer potomania Medication induced hyponatremia -Continue current management. -Continue holding hydrochlorothiazide, consider discontinuing completely on discharge -Seizure precautions. -Frequent sodium monitoring (every 3 hours) to avoid further overcorrection. -Goal: Limit sodium correction to <8= mEq in 24 hours to reduce the risk of osmotic demyelination. -Maintain D5W at 75 mL/hr agreed,Follow another sodium check, and decide accordingly -Recommend DDAVP twice daily. -Fluid restriction once sodium overcorrection stabilizes. -Follow urine electrolytes -Patient upon our evaluation is AOx3, will continue close monitor, If any complications arise during the hospital course, the patient can be upgraded to the ICU for closer monitoring. -Plan: Close monitoring and gradual correction of sodium levels while minimizing the risk of complications. Frequent mental status assessments will be performed. #A-fib #Transaminitis #Prominent pancreatic head #Alcohol use disorder #Hypertension, hold hydrochlorothiazide #History of NISREEN on CPAP at night Disposition: Telemetry DVT prophylaxis: Xarelto GI prophylaxis: PPI Diet: Cardiac Lines: PIV CODE STATUS:Full code Patient care was discussed with attending physician Dr. Nanette Zayas MD PGY-2
[2024-07-02 09:50] LABS: Chloride,Urine Random < 20.0 mMol/L (55.0-125.0); Potassium,Urine Random < 10 mMol/L (12-62); Sodium,Urine Random < 10.0 mMol/L (20.0-110.0)
[2024-07-02] MEDS: DEXTROSE 5%-WATER 500 ML 75 ML IV (09:54)
[2024-07-02 09:56] LABS: Amphetamine/Methamp Scrn,U Negative (Negative); Barbiturate Screen,Urine Negative (Negative); Benzodiazepines Screen,Urine Negative (Negative); Benzoylecgonine Screen, Ur Negative (Negative); Fentanyl Screen,Urine Negative (Negative); Opiate Screen,Urine Negative (Negative); THC Screen,Urine Negative (Negative)
[2024-07-02 10:18] LABS: Bacteria,Urine 1+; Bilirubin,Urine Negative (Negative); Blood,Urine Negative (Negative); Clarity,Urine Clear (Clear/Hazy); Color,Urine Lt-Yellow (Lt Yel-Yel); Glucose, Urine Negative (Negative); Ketones,Urine Negative (Negative); Leukocyte Esterase,Urine Positive (Negative); Nitrite,Urine Negative (Negative); PH,Urine 6.5 (5.0-7.0); Protein,Urine Negative (Neg - Trace); RBC,Urine 1 /hpf (0-3); Specific Gravity,Urine 1.003 (1.001-1.035); Urobilinogen,Urine Negative mg/dL (0.0-1.0); WBC,Urine 1 /hpf (0-5)
--- NOTE | 2024-07-02 10:41 | PC.SS ---
SS met with patient who is alert/oriented. Patient was able to verify demographics. Patient states he lives out of town. He drove himself down here to see his sister. He needed his sister to help care for him. Patient lives alone out of town. Patient states he was falling frequently at home. He states he was driving and working. He was just having problems ambulating. Patient also brought up his substance use. Patient states he's been drinking for the last 30 years and more when his son . Patient states his son in 2005. Patient states he will be eventally returning home and his sister will be following him and staying with him temporarily to help care for him. SS discussed SNF and alcohol rehab resources. Patient declined alcohol rehab resources indicating he wants to stop on his own. Patient confirms he drinks beer daily, roughly 12-15 beers a day. Patient states if he does not drink daily his hands start to shake. Patient verbalized his sister is his alt medical decision maker. Sister is Monica @ [phone]. Patient was able to confirm contact. Patient was following up with his PCP out of town. Last appt. was 5 months ago. SS will follow up with patient closer to discharge. PT dilipal will recommend HH vs SNF.
[2024-07-02 11:10] LABS: Sodium 111 mMol/L (136-145)
--- NOTE | 2024-07-02 11:56 | PD.RESCONSUL ---
HPI Data of Consult Consult date: 07/02/24 Requesting Physician: Mariusz Martin MD Admitting Provider: Mariusz Martin MD Attending Provider: Mariusz Martin MD Primary Care Provider: Physician No Primary/Family Consult Narrative Reason for consult: Hyponatremia History of present illness: 68-year-old male with past medical history of morbid obesity, hypertension, hyperlipidemia, atrial fibrillation on Xarelto, chronic alcoholism presented to the hospital with chief complaints of weakness in the lower extremities and having multiple falls since 3 days. Patient reported that since his son in 2005, patient is having more alcohol intake consuming about 12 beers in a day. He recently came to [place] 4 days before the day of admission to visit his sister and started to drink 12-14 beers per day with decreased food intake. Since 3 days patient noted that he is having severe weakness in the lower extremities due to which he had difficulty in walking had multiple falls without any injury to head or spine. Denies fever, shortness of breath, nausea, vomitings, diarrhea, palpitations, syncopal episodes, involuntary movements of hands and legs. ED course: -Vitals are stable at the time of admission except for mildly elevated blood pressure 165/94 mmHg -Labs at the time of admission showed WBC 7.1, Hb 13.9, platelets 176, sodium 109, potassium 4, chloride 78, bicarb 20.5, BUN 5, creatinine 0.6, glucose 96, osmolality 218, total bilirubin 1.7, AST 146, ALT 93, TSH 0.98, free T41.44 -CT head is negative for acute hemorrhage, mass effect or midline shift chest x-ray showed mild congestion in the right lung. Nephrology is consulted for hyponatremia cc:: cc: Mariusz Martin MD Review of Systems Review of Systems Narrative Review of Systems: Constitutional: No Weight Change, No Fever, No Chills, No Night Sweats, Fatigue, Malaise ENT/Mouth: No Hearing Changes, No Ear Pain, No Nasal Congestion, No Sinus Pain, No Hoarseness, No sore throat, No Rhinorrhea, No Swallowing Difficulty Eyes: No Eye Pain, No Swelling, No Redness, No Foreign Body, No Discharge, No Vision Changes Cardiovascular: No Chest Pain, No SOB, No PND, No Dyspnea on Exertion, No Orthopnea, No Edema, No Palpitations Respiratory: No Cough, No Sputum, No Wheezing, No Dyspnea Gastrointestinal: No Nausea, No Vomiting, No Diarrhea, No Constipation, No Pain, No Heartburn, No Anorexia, No Dysphagia, No Hematochezia, No Melena, No Flatulence, No Jaundice Genitourinary: No Dysuria, No Urinary Frequency, No Hematuria, No Urinary Incontinence, No Urgency, No Flank Pain, No Urinary Flow Changes, No Hesitancy Musculoskeletal: No Arthralgias, No Myalgias, No Joint Swelling, No Joint Stiffness, No Back Pain, No Neck Pain, No Injury History Skin: No Skin Lesions, No Pruritis Neuro: No Weakness, No Numbness, No Paresthesias, No Loss of Consciousness, No Syncope, Dizziness, Headache, No Coordination Changes, No Recent Falls Past Medical History Past Medical History CARDIAC: Positive Atrial Fibrillation Social History SUBSTANCE USE: does not use ALCOHOL: Current (12 beers daily ) Past Medical History Comments PMH COMMENT: chewing tobacco Exam Vital Signs Temp Pulse Resp BP Pulse Ox O2 Del Method 97.1 F 82 38 H 145/91 H 98 Room Air 07/02/24 08:00 07/02/24 08:13 07/02/24 08:00 07/02/24 08:13 07/02/24 08:00 07/02/24 08:00 Narrative Exam General: Awake. Morbidly obese HEENT: Normocephalic, atraumatic, mucous membranes moist. Heart: Irregular rate and rhythm, no murmurs. Lungs: Clear to auscultation with no wheezing or crackles. Abdomen: Soft, nondistended, nontender, positive bowel sounds. ?No guarding or rebound tenderness. Neurologic: Alert and oriented x3, no gross neurological deficit, and patient able to move all 4 extremities. Extremities: No edema. Skin: No rash or ecchymoses. Results Labs 07/02/24 04:55 07/02/24 17:47 Labs: Short CBC 07/01/24 07/02/24 Range/Units 18:22 04:55 WBC 7.1 5.7 (3.8-10.6) Thou/mm3 Hgb 13.9 13.6 (13.5-16.0) g/dL Hct 36.4 L 36.0 L (41.0-53.0) % Plt Count 176 143 D (140-440) Thou/mm3 [facility] 07/01/24 07/01/24 07/02/24 18:22 22:47 01:03 Sodium 109 L* 111 L* 110 L* Potassium 4.0 Chloride 78 L* Carbon Dioxide 20.5 BUN < 5 L Creatinine 0.6 Glucose 96 Calcium 8.9 07/02/24 07/02/24 07/02/24 03:05 04:55 07:18 Sodium 112 L* 114 L* Cancelled Potassium Chloride Carbon Dioxide BUN Creatinine Glucose Calcium 07/02/24 07/02/24 07/02/24 07:18 08:56 10:15 Sodium 115 L* 116 L* 111 L* Potassium 3.7 Chloride 85 L Carbon Dioxide 23.8 BUN 5 L Creatinine 0.7 Glucose 102 Calcium 8.5 Cardiac Enzymes 07/01/24 Range/Units 18:22 Troponin I < 0.020 (0.0-0.045) ng/mL Liver Function 07/01/24 07/02/24 Range/Units 18:22 07:18 Total Bilirubin 1.7 H 2.5 H D (0.3-1.2) mg/dL AST 146 H 135 H (0-34) U/L ALT 93 H 89 H (10-49) U/L Alkaline Phosphatase 72 74 (46-116) U/L Albumin 4.0 3.8 (3.4-4.8) gm/dL Urine 07/01/24 07/02/24 Range/Units 20:16 07:40 Urine Color Yellow Lt-Yellow (Lt Yel-Yel) Urine Clarity Turbid A Clear (Clear/Hazy) Urine pH 6.0 6.5 (5.0-7.0) Ur Specific [place] 1.011 1.003 (1.001-1.035) Urine Protein Negative Negative (Neg - Trace) Urine Glucose (UA) Negative Negative (Negative) Quality Measures Quality Measures none Advance care planning discussed with:: patient Medications Home Medications and Allergies Home Medications ?Medication ?Instructions ?Recorded ?Confirmed ?Type cholecalciferol (vitamin D3) 50 50 mcg PO DAILY 07/01/24 07/01/24 History mcg (2,000 unit) capsule diltiazem HCl 240 mg 480 mg PO Q24H 07/01/24 07/01/24 History capsule,extended release 24 hr hydrochlorothiazide 12.5 mg tablet 12.5 mg PO DAILY 07/01/24 07/01/24 History lisinopril 40 mg tablet 40 mg PO DAILY 07/01/24 07/01/24 History rivaroxaban 20 mg tablet (Xarelto) 20 mg PO Q24H 07/01/24 07/01/24 History Allergies Allergy/AdvReac Type Severity Reaction Status Date / Time No Known Allergies Allergy Verified 07/01/24 19:21 Visit Medications Acetaminophen (Acetaminophen 325 Mg Tablet) 650 mg PO Q6H PRN PRN Reason: Fever >101.5 Stop: 07/31/24 20:03 Diltiazem HCl (Diltiazem Cd 120 Mg Capcr) 240 mg PO QDAY [facility] Stop: 08/01/24 08:59 Last Admin: 07/02/24 08:12 Dose: 240 mg Folic Acid (Folic Acid 1 Mg Tablet) 1 mg PO BID [facility] Stop: 07/06/24 20:59 Last Admin: 07/02/24 08:13 Dose: 1 mg Dextrose (D5w) 500 mls @ 75 mls/hr IV .Q6H40M [facility] Stop: 07/03/24 09:29 Last Admin: 07/02/24 09:54 Dose: 75 mls/hr Lisinopril (Lisinopril 20 Mg Tablet) 40 mg PO QDAY [facility] Stop: 08/01/24 08:59 Last Admin: 07/02/24 08:13 Dose: 40 mg Lorazepam (Lorazepam 0.5 Mg Tablet) 0.5 mg PO Q4HR PRN PRN Reason: CIWA Score 2-6 Stop: 07/06/24 20:15 Lorazepam (Lorazepam 0.5 Mg Tablet) 1 mg PO Q4HR PRN PRN Reason: CIWA SCORE 7-11 Stop: 07/06/24 20:15 Lorazepam (Lorazepam 0.5 Mg Tablet) 2 mg PO Q4HR PRN PRN Reason: CIWA SCORE 12-15 Stop: 07/06/24 20:15 Lorazepam (Lorazepam 2 Mg/Ml Vial) 1 mg IV X1 PRN PRN Reason: Breakthrough Agitation Multivitamins (Multivitamins Tablet) 1 tab PO QDAY [facility] Stop: 08/01/24 08:59 Last Admin: 07/02/24 08:13 Dose: 1 tab Rivaroxaban (Rivaroxaban 10 Mg Tablet) 20 mg PO WSUPPER [facility] Stop: 08/01/24 17:29 Thiamine HCl (Thiamine 100 Mg Tablet) 100 mg PO BID ANTONY Stop: 07/06/24 20:59 Last Admin: 07/02/24 08:13 Dose: 100 mg Discontinued Medications Desmopressin Acetate (Desmopressin Acetate 4 Mcg/Ml Vial) 4 mcg IV X1 ONE Stop: 07/02/24 07:17 Last Admin: 07/02/24 08:13 Dose: 4 mcg Sodium Chloride (Ns) 500 mls @ 999 mls/hr IV .Q31M ONE Stop: 07/01/24 20:01 Last Admin: 07/01/24 20:22 Dose: Not Given Sodium Chloride (Ns) 500 mls @ 999 mls/hr IV .Q31M ONE Stop: 07/01/24 20:07 Last Infusion: 07/01/24 21:46 Dose: Infused Dextrose (D5w) 500 mls @ 250 mls/hr IV .Q2H ANTONY Stop: 07/02/24 09:14 Last Admin: 07/02/24 07:14 Dose: 250 mls/hr Nicotine (Nicotine Patch 14 Mg/24 Hr Patch.Td24) 14 mg TOP X1 ONE Stop: 07/01/24 23:10 Last Admin: 07/02/24 01:53 Dose: 14 mg Assessment & Plan Plan 68-year-old male with past medical history of morbid obesity, hypertension, hyperlipidemia, atrial fibrillation on Xarelto, chronic alcoholism presented to the hospital with chief complaints of weakness in the lower extremities and having multiple falls since 3 days and admitted for hyponatremia # Hyponatremia # Hypochloremia Likely beer potomania in the setting of chronic alcoholism, likely could be having mild chronic hyponatremia -Patient is on hydrochlorothiazide since 10 years for his blood pressures -Patient had history of chronic alcoholism and before admission, patient had 12-13 beers every day with minimal food intake -Patient is admitted to hospital with bilateral lower extremity weakness and multiple falls -Denies fever, nausea, vomitings, diarrhea -Baseline labs are not available -Sodium at the time of admission is 109, osmolality is 218 -TSH, free T4, glucose within normal limits Plan -Fluid restriction of 1000 mL -Strict input and output monitoring -Urine electrolytes are ordered -Sodium check every second hourly -Patient was found to have a sodium improvement from 109-116 this morning, for which patient received desmopressin dose -Recommended sodium correction of less than 10 mEq in first 24 hours #Acute on Chronic severe Hyponatremia #A-fib #Elevated transaminases #Prominent pancreatic head #Alcohol Use Disorder #Hypertension #Hyperlipidemia #Hx of NISREEN #Hx of morbid obesity #Nicotine dependence -Rest of the medical conditions to be treated as per primary team Thank you for allowing us to involved in the care of the patient Patient plan of care was discussed with the attending physician, Dr.Vemuri Eyad Zhou, PGY1 Attending Provider Attestation/Addendum Patient seen and examined with resident physician Dr. Castano. Note reviewed, agree with findings and recommendations. Patient admitted with weakness/severe hyponatremia. Sodium was 109 and improved to 114 today. Agree with giving a dose of desmopressin with close monitoring of urine output and sodium to avoid overcorrection. Patient with a significant alcohol consumption of beer. Admits to drinking 12-14 beers per day. Continue with fluid restriction and a CIWA protocol. Plan of care discussed with primary team.
[2024-07-02 12:50] LABS: Sodium 112 mMol/L (136-145)
[2024-07-02] MEDS: LORazepam 0.5 MG TABLET PO ×2 (13:47→18:16)
--- NOTE | 2024-07-02 13:55 | ESPR_ITS ---
<Statement entered by Robe Barth MD - 07/02/24 17:12> I have discussed and was present for the essential components of the history, physical examination, diagnosis, and treatment plan with the resident. I agree with the patient's care as documented by the resident and amended herein by me. Robe Barth MD FACP. Documentation for date of: 07/02/24 Subjective Subjective Interval history: Patient [facility] and [facility] No events overnight Only complains of BLE feet paresthesia Rounded with RN Exam Vital Signs Temp Pulse Resp BP Pulse Ox O2 Del Method 97.4 F 78 15 119/83 98 Room Air 07/02/24 12:00 07/02/24 12:00 07/02/24 12:00 07/02/24 12:00 07/02/24 12:00 07/02/24 12:00 Narrative Exam General: Awake. Morbidly obese HEENT: Normocephalic, atraumatic, mucous membranes moist. Heart: Irregular rate and rhythm, no murmurs. Lungs: Clear to auscultation with no wheezing or crackles. Abdomen: Soft, nondistended, nontender, positive bowel sounds. ?No guarding or rebound tenderness. Neurologic: Alert and oriented x3, no gross neurological deficit, and patient able to move all 4 extremities. Extremities: No edema. Skin: No rash or ecchymoses. Objective Labs 07/02/24 04:55 07/02/24 12:10 Labs: Laboratory Results - last 24 hr 07/01/24 07/01/24 07/01/24 18:22 20:16 22:47 WBC 7.1 RBC 4.08 L Hgb 13.9 Hct 36.4 L MCV 89 MCH 34.1 MCHC 38.2 H RDW Std Deviation 40.4 Plt Count 176 Neut % (Auto) 73 Lymph % (Auto) 12 Harris % (Auto) 14 H Eos % (Auto) 1 Baso % (Auto) 1 Neut # (Auto) 5.2 Lymph # (Auto) 0.8 L Harris # (Auto) 1.0 H Eos # (Auto) 0.1 Baso # (Auto) 0.0 Immature Gran # (Auto) 0.06 H Absolute Nucleated RBC 0.00 Immature Gran % 1 H Nucleated RBC % 0 PT 15.6 H INR 1.5 H APTT 43.6 H Sodium 109 L* 111 L* Potassium 4.0 Chloride 78 L* Carbon Dioxide 20.5 Anion Gap 11 BUN < 5 L Creatinine 0.6 Estim Creat Clear Calc 167.0 eGFR > 60 BUN/Creatinine Ratio 8 L Glucose [address] Glu mg/dL Hemoglobin A1c Calculated Osmolality 218 L Calcium 8.9 Corrected Calcium 8.9 Total Bilirubin 1.7 H AST 146 H ALT 93 H Alkaline Phosphatase 72 Troponin I < 0.020 B-Natriuretic Peptide 60 Total Protein 7.4 Albumin 4.0 Globulin 3.4 Albumin/Globulin Ratio 1.2 Triglycerides Cholesterol LDL Cholesterol, Calc HDL Cholesterol Cholesterol/HDL Ratio TSH 0.98 Free T4 1.44 Ur Collection Type Clean Catch Urine Color Yellow Urine Clarity Turbid A Urine pH 6.0 Ur Specific [place] 1.011 Urine Protein Negative Urine Glucose (UA) Negative Urine Ketones Trace Urine Blood Negative Urine Nitrite Negative Urine Bilirubin Negative Urine Urobilinogen (Auto) 2.0 Ur Leukocyte Esterase Negative Urine RBC 2 Urine WBC 4 Ur Squamous Epith Cells 1 Urine Bacteria 4+ A Ur Random Sodium 17.0 L Ur Random Potassium Ur Random Chloride Urine Opiates Screen Urine Fentanyl Screen Ur Barbiturates Screen U Amphetamin/Meth Scrn U Benzodiazepines Scrn U Cocaine Metab Screen U Marijuana (THC) Screen 07/02/24 07/02/24 07/02/24 01:03 03:05 04:55 WBC 5.7 RBC 3.99 L Hgb 13.6 Hct 36.0 L MCV 90 MCH 34.1 MCHC 37.8 H RDW Std Deviation 41.1 Plt Count 143 D Neut % (Auto) 72 Lymph % (Auto) 12 Harris % (Auto) 13 H Eos % (Auto) 2 Baso % (Auto) 1 Neut # (Auto) 4.1 Lymph # (Auto) 0.7 L Harris # (Auto) 0.7 Eos # (Auto) 0.1 Baso # (Auto) 0.0 Immature Gran # (Auto) 0.03 H Absolute Nucleated RBC 0.00 Immature Gran % 1 H Nucleated RBC % 0 PT INR APTT Sodium 110 L* 112 L* 114 L* Potassium Chloride Carbon Dioxide Anion Gap BUN Creatinine Estim Creat Clear Calc eGFR BUN/Creatinine Ratio Glucose Estimated Ave Glu mg/dL 100 Hemoglobin A1c 5.1 Calculated Osmolality Calcium Corrected Calcium Total Bilirubin AST ALT Alkaline Phosphatase Troponin I B-Natriuretic Peptide Total Protein Albumin Globulin Albumin/Globulin Ratio Triglycerides 58 Cholesterol 110 L LDL Cholesterol, Calc 47 HDL Cholesterol 51 Cholesterol/HDL Ratio 2.2 L TSH 1.37 Free T4 Ur Collection Type Urine Color Urine Clarity Urine pH Ur Specific [place] Urine Protein Urine Glucose (UA) Urine Ketones Urine Blood Urine Nitrite Urine Bilirubin Urine Urobilinogen (Auto) Ur Leukocyte Esterase Urine RBC Urine WBC Ur Squamous Epith Cells Urine Bacteria Ur Random Sodium Ur Random Potassium Ur Random Chloride Urine Opiates Screen Urine Fentanyl Screen Ur Barbiturates Screen U Amphetamin/Meth Scrn U Benzodiazepines Scrn U Cocaine Metab Screen U Marijuana (THC) Screen 07/02/24 07/02/24 07/02/24 07:18 07:18 07:40 WBC RBC Hgb Hct MCV MCH MCHC RDW Std Deviation Plt Count Neut % (Auto) Lymph % (Auto) Harris % (Auto) Eos % (Auto) Baso % (Auto) Neut # (Auto) Lymph # (Auto) Harris # (Auto) Eos # (Auto) Baso # (Auto) Immature Gran # (Auto) Absolute Nucleated RBC Immature Gran % Nucleated RBC % PT INR APTT Sodium Cancelled 115 L* Potassium 3.7 Chloride 85 L Carbon Dioxide 23.8 Anion Gap 6 L BUN 5 L Creatinine 0.7 Estim Creat Clear Calc 146.0 eGFR > 60 BUN/Creatinine Ratio 7 L Glucose [address] Glu mg/dL Hemoglobin A1c Calculated Osmolality 230 L Calcium 8.5 Corrected Calcium 8.7 Total Bilirubin 2.5 H D AST 135 H ALT 89 H Alkaline Phosphatase 74 Troponin I B-Natriuretic Peptide Total Protein 7.0 Albumin 3.8 Globulin 3.2 Albumin/Globulin Ratio 1.2 Triglycerides Cholesterol LDL Cholesterol, Calc HDL Cholesterol Cholesterol/HDL Ratio TSH Free T4 Ur Collection Type Catheter Urine Color Lt-Yellow Urine Clarity Clear Urine pH 6.5 Ur Specific [place] 1.003 Urine Protein Negative Urine Glucose (UA) Negative Urine Ketones Negative Urine Blood Negative Urine Nitrite Negative Urine Bilirubin Negative Urine Urobilinogen (Auto) Negative Ur Leukocyte Esterase Positive Urine RBC 1 Urine WBC 1 Ur Squamous Epith Cells 0 Urine Bacteria 1+ A Ur Random Sodium < 10.0 L Ur Random Potassium < 10 L Ur Random Chloride < 20.0 L Urine Opiates Screen Negative Urine Fentanyl Screen Negative Ur Barbiturates Screen Negative U Amphetamin/Meth Scrn Negative U Benzodiazepines Scrn Negative U Cocaine Metab Screen Negative U Marijuana (THC) Screen Negative 07/02/24 07/02/24 07/02/24 08:56 10:15 12:10 WBC RBC Hgb Hct MCV MCH MCHC RDW Std Deviation Plt Count Neut % (Auto) Lymph % (Auto) Harris % (Auto) Eos % (Auto) Baso % (Auto) Neut # (Auto) Lymph # (Auto) Harris # (Auto) Eos # (Auto) Baso # (Auto) Immature Gran # (Auto) Absolute Nucleated RBC Immature Gran % Nucleated RBC % PT INR APTT Sodium 116 L* 111 L* 112 L* Potassium Chloride Carbon Dioxide Anion Gap BUN Creatinine Estim Creat Clear Calc eGFR BUN/Creatinine Ratio Glucose Estimated Ave Glu mg/dL Hemoglobin A1c Calculated Osmolality Calcium Corrected Calcium Total Bilirubin AST ALT Alkaline Phosphatase Troponin I B-Natriuretic Peptide Total Protein Albumin Globulin Albumin/Globulin Ratio Triglycerides Cholesterol LDL Cholesterol, Calc HDL Cholesterol Cholesterol/HDL Ratio TSH Free T4 Ur Collection Type Urine Color Urine Clarity Urine pH Ur Specific [place] Urine Protein Urine Glucose (UA) Urine Ketones Urine Blood Urine Nitrite Urine Bilirubin Urine Urobilinogen (Auto) Ur Leukocyte Esterase Urine RBC Urine WBC Ur Squamous Epith Cells Urine Bacteria Ur Random Sodium Ur Random Potassium Ur Random Chloride Urine Opiates Screen Urine Fentanyl Screen Ur Barbiturates Screen U Amphetamin/Meth Scrn U Benzodiazepines Scrn U Cocaine Metab Screen U Marijuana (THC) Screen Quality Measures Quality Measures none Advance care planning discussed with:: patient Assessment & Plan Assessment Current Active Medications: Generic Name Dose Route Start Last Admin Trade Name Freq PRN Reason Stop Dose Admin Acetaminophen 650 mg 07/01/24 20:04 Acetaminophen 325 Mg Tablet PO 07/31/24 20:03 Q6H PRN Fever >101.5 Diltiazem HCl 240 mg 07/02/24 09:00 07/02/24 08:12 Diltiazem Cd 120 Mg Capcr PO 08/01/24 08:59 240 mg QDAY ANTONY Administration Folic Acid 1 mg 07/01/24 21:00 07/02/24 08:13 Folic Acid 1 Mg Tablet PO 07/06/24 20:59 1 mg BID ANTONY Administration Lisinopril 40 mg 07/02/24 09:00 07/02/24 08:13 Lisinopril 20 Mg Tablet PO 08/01/24 08:59 40 mg QDAY ANTONY Administration Lorazepam 0.5 mg 07/01/24 20:16 07/02/24 13:47 Lorazepam 0.5 Mg Tablet PO 07/06/24 20:15 0.5 mg Q4HR PRN Administration CIWA Score 2-6 Lorazepam 1 mg 07/01/24 20:16 Lorazepam 0.5 Mg Tablet PO 07/06/24 20:15 Q4HR PRN CIWA SCORE 7-11 Lorazepam 2 mg 07/01/24 20:16 Lorazepam 0.5 Mg Tablet PO 07/06/24 20:15 Q4HR PRN CIWA SCORE 12-15 Lorazepam 1 mg 07/01/24 20:16 Lorazepam 2 Mg/Ml Vial IV X1 PRN Breakthrough Agitation Multivitamins 1 tab 07/02/24 09:00 07/02/24 08:13 Multivitamins Tablet PO 08/01/24 08:59 1 tab QDAY ANTONY Administration Rivaroxaban 20 mg 07/02/24 17:30 Rivaroxaban 10 Mg Tablet PO 08/01/24 17:29 WSUPPER ANTONY Thiamine HCl 100 mg 07/01/24 21:00 07/02/24 08:13 Thiamine 100 Mg Tablet PO 07/06/24 20:59 100 mg BID ANTONY Administration Plan Assessment Christina is a 68 y/o male with PMHx hypertension, hyperlipidemia, morbid obesity, A- fib (on Xarelto) who is admitted for acute on chronic severe hyponatremia. #Symptomatic Severe Hyponatremia likely 2/2 to beer potomania, acute Assessment Etiology likely 2/2 to beer potomania. Unlikely a chronic condition. Patient does have symptoms such as weakness and paresthesias in the lower extremities. No altered mentation. Normovolemic on exam, euvolemic labs, no acute neurologic symptoms, GCS 15. Pt is not altered at this point, AAOx3, however will still require frequent sodium checks Plan: - Hold HCTZ. - Free water restriction - Monitor serum sodium q4h, avoid correction >8 mEq/L/24h. - Trend Sodium - Get urine sodium, urine osmolality. - DDAVP 4mcg given x1 - Neurochecks - Seizure precautions #A-fib [id number]: 3 Rate: Controlled Rhythm: Regular at this point AC: Xarleto 20 Unsure pt's heart failure status No echo on file Plan: - Continue with Xarelto 20 mg qday - Keep magnesium and potasium above 2 and 4 respectively to avoid any cardiac arrythmias #Elevated transaminases #Prominent pancreatic head #Alcohol Use Disorder #Alcoholic neuoropathy Chronic alcohol use (12-pack/day x10 years), at risk for withdrawal, malnutrition, hepatic injury. Elevated AST/ALT (AST>ALT 2:1 in alcoholic fashion), mild hyperbilirubinemia, PT/INR slightly elevated Lives alone, limited social support. Plan: - [facility] protocol for withdrawal monioring. - Administer thiamine, folate, multivitamins - [facility] protocol - Trend LFTs - start gabapetin 100mg BID #Hypertension #Hyperlipidemia Chronic Not taking statin Plan: ? Holding blood pressure medicines as blood pressures soft at this point ? F/u Lipid panel #Hx of NISREEN #Hx of morbid obesity Plan: - Resumed CPAP HS #Nicotine dependence Plan: - Nicotine patch - Discussed smoking cessation - Consider Chantix outpatient #Health Maintenance Disposition: Telemetry DVT prophylaxis: Xarelto GI prophylaxis: None indicated at this time Diet: Cardiac CODE STATUS: Full - Patient's care was discussed with my attending physician, Dr. Tab Smith MD Internal Medicine PGY-3
[2024-07-02 15:00] LABS: Sodium 113 mMol/L (136-145)
[2024-07-02 16:29] LABS: Sodium 112 mMol/L (136-145)
[2024-07-02] MEDS: RIVAROXABAN 10 MG TABLET 20 MG PO (18:06)
[2024-07-02 18:34] LABS: Sodium 113 mMol/L (136-145)
[2024-07-02 20:26] LABS: Sodium 112 mMol/L (136-145)
[2024-07-02] MEDS: LORazepam 0.5 MG TABLET 1 MG PO (22:43)
[2024-07-02 23:37] LABS: Sodium 114 mMol/L (136-145)
[2024-07-03] VITALS (9 sets, daily range): BP systolic 121–155; BP diastolic 65–93; PULSE 55–97; RESP 11–22; TEMP 36.1–36.4; O2SAT 97–100; BMI 44.3
[2024-07-03 01:01] LABS: Sodium 113 mMol/L (136-145)
[2024-07-03 06:07] LABS: Basophils # (Auto) 0.1 Thou/mm3 (0.0-0.2); Basophils % (Auto) 1 % (0-2.5); Eosinophils # (Auto) 0.1 Thou/mm3 (0.0-0.5); Eosinophils % (Auto) 2 % (0-10); Hematocrit 36.5 % (41.0-53.0); Hemoglobin 13.6 g/dL (13.5-16.0); Immature Granulocytes % (Auto) 1 % (0-0); Immature Granulocytes Auto 0.03 Thou/mm3 (0.00-0.00); Lymphocytes # (Auto) 0.8 Thou/mm3 (1.0-4.8); Lymphocytes % (Auto) 14 % (10-50); Mean Corpuscular HGB Conc 37.3 g/dl (31.0-37.0); Mean Corpuscular Volume 94 fL (80-100); Monocytes # (Auto) 0.8 Thou/mm3 (0.0-0.8); Monocytes % (Auto) 14 % (0-12); Neutrophils # (Auto) 4.2 Thou/mm3 (1.8-7.7); Neutrophils % (Auto) 69 % (37-80); Nucleated Red Blood Cell % 0 /100 WBC (0); Platelet Count 164 Thou/mm3 (140-440); RDW Standard Deviation 42.5 fL (35.1-43.9); Red Blood Count 3.89 Miln/mm3 (4.50-5.90)
[2024-07-03 06:36] LABS: Alanine Aminotransferase 79 U/L (10-49); Albumin, Serum 3.6 gm/dL (3.4-4.8); Albumin/Globulin Ratio 1.2 (1.2-2.2); Alkaline Phosphatase 76 U/L (46-116); Anion Gap 8 (7-16); Aspartate Amino Transferase 108 U/L (0-34); BUN/Creatinine Ratio 12 Ratio (12-20); Bilirubin,Total 1.7 mg/dL (0.3-1.2); Blood Urea Nitrogen 7 mg/dL (9-23); Calcium 8.3 mg/dL (8.3-10.6); Calcium (Corrected) 8.6 mg/dL (8.5-10.1); Carbon Dioxide 21.5 mMol/L (20.0-31.0); Chloride 85 mMol/L (98-107); Creatinine (Component) 0.6 mg/dL (0.6-1.3); Glucose 91 mg/dL (74-106); Osmolality,Calculated 229 (275-295); Potassium 3.5 mMol/L (3.4-5.1); Sodium 114 mMol/L (136-145); Total Protein 6.6 gm/dL (5.7-8.2); eGFR > 60 See Note
[2024-07-03] MEDS: Lisinopril 20 MG TABLET 40 MG PO (08:39)
[2024-07-03] MEDS: FOLIC ACID 1 MG TABLET PO ×2 (08:40→21:02)
[2024-07-03] MEDS: DILTIAZEM CD 120 MG CAPCR 240 MG PO (08:40)
[2024-07-03] MEDS: MULTIVITAMINS TABLET 1 TAB PO (08:40)
[2024-07-03] MEDS: THIAMINE 100 MG TABLET PO ×2 (08:40→21:02)
[2024-07-03] MEDS: LORazepam 0.5 MG TABLET PO ×2 (08:52→15:54)
--- NOTE | 2024-07-03 09:19 | ESPR_ITS ---
<Statement entered by Miguel Ángel Fitzpatrick MD - 07/08/24 12:27> TOTAL CC TIME: 45 MIN I saw and evaluated the patient. I reviewed the resident?s note and agree with findings and plan as documented in the resident?s note. Upon my evaluation, this patient had a high probability of imminent or life- threatening deterioration due to severe hyponatremia, which required my direct attention, intervention, and personal management. This time is exclusive of time spent on procedures, which are documented separately if performed. primary team following nephrology recommendations as noted previously - recommend 3%HT saline if not achieving goals of increased Na+ otherwise pt is no worse - hemodynamics/neuro exam unchanged no severe etoh w/drawals Documentation for date of: 07/03/24 Subjective Subjective Interval history: The patient is a 68-year-old male with a past medical history of hypertension, hyperlipidemia, morbid obesity, and atrial fibrillation on Xarelto. He presented overnight with right foot weakness, numbness, and tingling. Initial labs revealed severe hyponatremia (Na 109). He also has a history of alcohol abuse, consuming approximately 12 beers daily for the past 10 years, with his last drink being yesterday. The patient denied chest pain, shortness of breath, vomiting, headache, or visual/auditory hallucinations. Home medications include hydrochlorothiazide (a potential contributor to hyponatremia), lisinopril, Cardizem, and Xarelto. ED Course: Hemodynamically stable, saturating well on room air. Labs: Hypochloremic hypoosmolar hyponatremia, mild transaminitis likely secondary to alcohol use. Head CT: Negative for acute hemorrhage, mass, or midline shift. Management: Received 500L normal saline in the ED and was admitted for further management of hyponatremia. 07/03/2024: Patient seen and examined at bedside. No acute overnight events. Sodium was checked every 3 hours, the last is 114, which is in acceptable range. D5W was stopped yesterday, continue fluid restriction 1000 mL daily, nephrology also is on board, urine electrolytes revealed dilute urine, sodium, potassium less than 10, chloride less than 20, however patient made total of 925 cc of urine output in 24-hour. CIWA was 0 overnight. Continue to monitor, continue fluid restriction, continue every 4 hours sodium check, will continue seizure precaution. We are agree with primary team management. Exam Vital Signs Temp Pulse Resp BP Pulse Ox O2 Del Method 97.0 F 78 11 L 121/83 100 BiPAP 07/03/24 08:00 07/03/24 08:40 07/03/24 08:00 07/03/24 08:40 07/03/24 08:00 07/03/24 08:00 Narrative Exam GENERAL: no acute distress, AAO x3, obese HEENT: Head AT/ NC. Mucous membranes moist. PERRL. NECK: Supple, no lymphadenopathy, no carotid bruits. CARDIOVASCULAR: RRR. Normal S1/S2, No m/r/g. No pitting edema of bilateral LEs. RESPIRATORY: CTAB. No wheezing, rhonchi, crackles. GASTROINTESTINAL: Abdomen soft, non tender no palpable masses. Bowel sounds present in all 4 quadrants. MUSCULOSKELETAL:? No cyanosis or edema, no visible joint swelling. NEUROLOGICAL: CN II-XII grossly intact. No focal deficits. Sensation intact, symmetric. PSYCHIATRIC: Awake and alert, not agitated, normal mood and affect. INTEGUMENTARY: No obvious rashes, no jaundice, normal turgor. Objective Labs 07/06/24 05:10 07/06/24 10:35 Labs: Laboratory Results - last 24 hr 07/02/24 07/02/24 07/02/24 07:40 08:56 10:15 WBC RBC Hgb Hct MCV MCH MCHC RDW Std Deviation Plt Count Neut % (Auto) Lymph % (Auto) [place] % (Auto) Eos % (Auto) Baso % (Auto) Neut # (Auto) Lymph # (Auto) [place] # (Auto) Eos # (Auto) Baso # (Auto) Immature Gran # (Auto) Absolute Nucleated RBC Immature Gran % Nucleated RBC % Sodium 116 L* 111 L* Potassium Chloride Carbon Dioxide Anion Gap BUN Creatinine Estim Creat Clear Calc eGFR BUN/Creatinine Ratio Glucose Calculated Osmolality Calcium Corrected Calcium Total Bilirubin AST ALT Alkaline Phosphatase Total Protein Albumin Globulin Albumin/Globulin Ratio Ur Collection Type Catheter Urine Color Lt-Yellow Urine Clarity Clear Urine pH 6.5 Ur Specific [place] 1.003 Urine Protein Negative Urine Glucose (UA) Negative Urine Ketones Negative Urine Blood Negative Urine Nitrite Negative Urine Bilirubin Negative Urine Urobilinogen (Auto) Negative Ur Leukocyte Esterase Positive Urine RBC 1 Urine WBC 1 Ur Squamous Epith Cells 0 Urine Bacteria 1+ A Ur Random Sodium < 10.0 L Ur Random Potassium < 10 L Ur Random Chloride < 20.0 L Urine Opiates Screen Negative Urine Fentanyl Screen Negative Ur Barbiturates Screen Negative U Amphetamin/Meth Scrn Negative U Benzodiazepines Scrn Negative U Cocaine Metab Screen Negative U Marijuana (THC) Screen Negative 07/02/24 07/02/24 07/02/24 12:10 14:15 16:06 WBC RBC Hgb Hct MCV MCH MCHC RDW Std Deviation Plt Count Neut % (Auto) Lymph % (Auto) [place] % (Auto) Eos % (Auto) Baso % (Auto) Neut # (Auto) Lymph # (Auto) [place] # (Auto) Eos # (Auto) Baso # (Auto) Immature Gran # (Auto) Absolute Nucleated RBC Immature Gran % Nucleated RBC % Sodium 112 L* 113 L* 112 L* Potassium Chloride Carbon Dioxide Anion Gap BUN Creatinine Estim Creat Clear Calc eGFR BUN/Creatinine Ratio Glucose Calculated Osmolality Calcium Corrected Calcium Total Bilirubin AST ALT Alkaline Phosphatase Total Protein Albumin Globulin Albumin/Globulin Ratio Ur Collection Type Urine Color Urine Clarity Urine pH Ur Specific [place] Urine Protein Urine Glucose (UA) Urine Ketones Urine Blood Urine Nitrite Urine Bilirubin Urine Urobilinogen (Auto) Ur Leukocyte Esterase Urine RBC Urine WBC Ur Squamous Epith Cells Urine Bacteria Ur Random Sodium Ur Random Potassium Ur Random Chloride Urine Opiates Screen Urine Fentanyl Screen Ur Barbiturates Screen U Amphetamin/Meth Scrn U Benzodiazepines Scrn U Cocaine Metab Screen U Marijuana (THC) Screen 07/02/24 07/02/24 07/02/24 17:47 19:59 22:29 WBC RBC Hgb Hct MCV MCH MCHC RDW Std Deviation Plt Count Neut % (Auto) Lymph % (Auto) [place] % (Auto) Eos % (Auto) Baso % (Auto) Neut # (Auto) Lymph # (Auto) [place] # (Auto) Eos # (Auto) Baso # (Auto) Immature Gran # (Auto) Absolute Nucleated RBC Immature Gran % Nucleated RBC % Sodium 113 L* 112 L* 114 L* Potassium Chloride Carbon Dioxide Anion Gap BUN Creatinine Estim Creat Clear Calc eGFR BUN/Creatinine Ratio Glucose Calculated Osmolality Calcium Corrected Calcium Total Bilirubin AST ALT Alkaline Phosphatase Total Protein Albumin Globulin Albumin/Globulin Ratio Ur Collection Type Urine Color Urine Clarity Urine pH Ur Specific [place] Urine Protein Urine Glucose (UA) Urine Ketones Urine Blood Urine Nitrite Urine Bilirubin Urine Urobilinogen (Auto) Ur Leukocyte Esterase Urine RBC Urine WBC Ur Squamous Epith Cells Urine Bacteria Ur Random Sodium Ur Random Potassium Ur Random Chloride Urine Opiates Screen Urine Fentanyl Screen Ur Barbiturates Screen U Amphetamin/Meth Scrn U Benzodiazepines Scrn U Cocaine Metab Screen U Marijuana (THC) Screen 07/03/24 07/03/24 00:33 05:25 WBC 6.0 RBC 3.89 L Hgb 13.6 Hct 36.5 L MCV 94 MCH 35.0 MCHC 37.3 H RDW Std Deviation 42.5 Plt Count 164 Neut % (Auto) 69 Lymph % (Auto) 14 [place] % (Auto) 14 H Eos % (Auto) 2 Baso % (Auto) 1 Neut # (Auto) 4.2 Lymph # (Auto) 0.8 L [place] # (Auto) 0.8 Eos # (Auto) 0.1 Baso # (Auto) 0.1 Immature Gran # (Auto) 0.03 H Absolute Nucleated RBC 0.00 Immature Gran % 1 H Nucleated RBC % 0 Sodium 113 L* 114 L* Potassium 3.5 Chloride 85 L Carbon Dioxide 21.5 Anion Gap 8 BUN 7 L Creatinine 0.6 Estim Creat Clear Calc 171.0 eGFR > 60 BUN/Creatinine Ratio 12 Glucose 91 Calculated Osmolality 229 L Calcium 8.3 Corrected Calcium 8.6 Total Bilirubin 1.7 H D AST 108 H ALT 79 H Alkaline Phosphatase 76 Total Protein 6.6 Albumin 3.6 Globulin 3.0 Albumin/Globulin Ratio 1.2 Ur Collection Type Urine Color Urine Clarity Urine pH Ur Specific [place] Urine Protein Urine Glucose (UA) Urine Ketones Urine Blood Urine Nitrite Urine Bilirubin Urine Urobilinogen (Auto) Ur Leukocyte Esterase Urine RBC Urine WBC Ur Squamous Epith Cells Urine Bacteria Ur Random Sodium Ur Random Potassium Ur Random Chloride Urine Opiates Screen Urine Fentanyl Screen Ur Barbiturates Screen U Amphetamin/Meth Scrn U Benzodiazepines Scrn U Cocaine Metab Screen U Marijuana (THC) Screen Quality Measures Quality Measures none Advance care planning discussed with:: patient Assessment & Plan Assessment Current Active Medications: Generic Name Dose Route Start Last Admin Trade Name Freq PRN Reason Stop Dose Admin Acetaminophen 650 mg 07/01/24 20:04 Acetaminophen 325 Mg Tablet PO 07/31/24 20:03 Q6H PRN Fever >101.5 Diltiazem HCl 240 mg 07/02/24 09:00 07/03/24 08:40 Diltiazem Cd 120 Mg Capcr PO 08/01/24 08:59 240 mg QDAY ANTONY Administration Folic Acid 1 mg 07/01/24 21:00 07/03/24 08:40 Folic Acid 1 Mg Tablet PO 07/06/24 20:59 1 mg BID ANTONY Administration Lisinopril 40 mg 07/02/24 09:00 07/03/24 08:39 Lisinopril 20 Mg Tablet PO 08/01/24 08:59 40 mg QDAY ANTONY Administration Lorazepam 0.5 mg 07/01/24 20:16 07/03/24 08:52 Lorazepam 0.5 Mg Tablet PO 07/06/24 20:15 0.5 mg Q4HR PRN Administration CIWA Score 2-6 Lorazepam 1 mg 07/01/24 20:16 07/02/24 22:43 Lorazepam 0.5 Mg Tablet PO 07/06/24 20:15 1 mg Q4HR PRN Administration CIWA SCORE 7-11 Lorazepam 2 mg 07/01/24 20:16 Lorazepam 0.5 Mg Tablet PO 07/06/24 20:15 Q4HR PRN CIWA SCORE 12-15 Lorazepam 1 mg 07/01/24 20:16 Lorazepam 2 Mg/Ml Vial IV X1 PRN Breakthrough Agitation Multivitamins 1 tab 07/02/24 09:00 07/03/24 08:40 Multivitamins Tablet PO 08/01/24 08:59 1 tab QDAY ANTONY Administration Rivaroxaban 20 mg 07/02/24 17:30 07/02/24 18:06 Rivaroxaban 10 Mg Tablet PO 08/01/24 17:29 20 mg WSUPPER ANTONY Administration Thiamine HCl 100 mg 07/01/24 21:00 07/03/24 08:40 Thiamine 100 Mg Tablet PO 07/06/24 20:59 100 mg BID ANTONY Administration Plan 68-year-old male with past medical history of hypertension on hydrochlorothiazide, hyperlipidemia, morbidly obese, A-fib on Xarelto who was admitted for severe hypochloremic hyponatremia most likely secondary due to periorbital pneumonia combined with medication side effect. ICU Consultation (07/02/2024): The ICU team was consulted due to severe hyponatremia and concern for rapid overcorrection. -Overnight Course: No acute events. -Serum sodium increased by 6 mEq over 12 hours (109 - 115)-concern for overcorrection -Primary team intervened with 1 dose of desmopressin (DDAVP) and 500 mL D5W. ICU Team Recommendations: Acute hypoosmolar hypochloremic hyponatremia Beer potomania Medication induced hyponatremia -Continue current management. -Continue holding hydrochlorothiazide, consider discontinuing completely on discharge -Seizure precautions. -Frequent sodium monitoring , can be changed to every 4 hours -Goal: Limit sodium correction to <8-10= mEq in 24 hours to reduce the risk of osmotic demyelination. -DC DDAVP, DC D5W, -Fluid restriction 1000 mL daily, close monitor urine output. -Patient is having dilute urine, with less than 10 of urine sodium and potassium and chloride less than 20 -Patient upon our evaluation is AOx3, will continue close monitor, patient is still stable on floors, no neurological deficit. If any complications arise during the hospital course, the patient can be upgraded to the ICU for closer monitoring. -Plan: Close monitoring and gradual correction of sodium levels while minimizing the risk of complications. Frequent mental status assessments will need to be performed. #A-fib #Transaminitis #Prominent pancreatic head #Alcohol use disorder #Hypertension, hold hydrochlorothiazide #History of NISREEN on CPAP at night Disposition: Telemetry DVT prophylaxis: Xarelto GI prophylaxis: PPI Diet: Cardiac Lines: PIV CODE STATUS:Full code Patient care was discussed with attending physician Dr. Nanette Zayas MD PGY-2
--- NOTE | 2024-07-03 09:53 | ESPR_ITS ---
Documentation for date of: 07/03/24 Subjective Subjective Interval history: Reason for consult: Hyponatremia History of present illness: 68-year-old male with past medical history of morbid obesity, hypertension, hyperlipidemia, atrial fibrillation on Xarelto, chronic alcoholism presented to the hospital with chief complaints of weakness in the lower extremities and having multiple falls since 3 days. Patient reported that since his son in 2005, patient is having more alcohol intake consuming about 12 beers in a day. He recently came to [place] 4 days before the day of admission to visit his sister and started to drink 12-14 beers per day with decreased food intake. Since 3 days patient noted that he is having severe weakness in the lower extremities due to which he had difficulty in walking had multiple falls without any injury to head or spine. Denies fever, shortness of breath, nausea, vomitings, diarrhea, palpitations, syncopal episodes, involuntary movements of hands and legs. ED course: -Vitals are stable at the time of admission except for mildly elevated blood pressure 165/94 mmHg -Labs at the time of admission showed WBC 7.1, Hb 13.9, platelets 176, sodium 109, potassium 4, chloride 78, bicarb 20.5, BUN 5, creatinine 0.6, glucose 96, osmolality 218, total bilirubin 1.7, AST 146, ALT 93, TSH 0.98, free T41.44 -CT head is negative for acute hemorrhage, mass effect or midline shift chest x- ray showed mild congestion in the right lung. Nephrology is consulted for hyponatremia 07/03/2024 patient currently seen in telemetry. Sodium 114. Continue with fluid restriction. Urine output started to improve. 1 dose of desmopressin was given to avoid overshoot. Patient on CIWA protocol as he has significant alcohol history. Review of Systems Review of Systems Narrative Review of Systems: CONSTITUTIONAL: Patient denies any fever, chills. HEENT: Denies any visual disturbances or hearing problems. CARDIOVASCULAR: Patient denies any chest pain, shortness of breath, swelling in the lower extremities. PULMONARY: Patient denies any shortness of breath, cough. GASTROINTESTINAL: Patient denies any abdominal pain, constipation, nausea, vomiting, diarrhea. GENITOURINARY: Patient denies any urinary symptoms of burning or frequency or hematuria, denies any form in the urine. SKIN: Denies any rash. MUSCULOSKELETAL: Denies any muscular skeletal problems of joint pains. NEUROLOGICAL: Denies any neurological problems of strokes, seizures or confusion. Denies any memory problems. PSYCHIATRIC: Denies any depression or anxiety. LYMPHATICS : No lymphadenopathy Exam Vital Signs Temp Pulse Resp BP Pulse Ox O2 Del Method 36.1 C 78 11 L 121/83 100 BiPAP 07/03/24 08:00 07/03/24 08:40 07/03/24 08:00 07/03/24 08:40 07/03/24 08:00 07/03/24 08:00 Narrative Exam General: Awake. Morbidly obese HEENT: Normocephalic, atraumatic, mucous membranes moist. Heart: Irregular rate and rhythm, no murmurs. Lungs: Clear to auscultation with no wheezing or crackles. Abdomen: Soft, nondistended, nontender, positive bowel sounds. ?No guarding or rebound tenderness. Neurologic: Alert and oriented x3, no gross neurological deficit, and patient able to move all 4 extremities. Extremities: No edema. Skin: No rash or ecchymoses. Objective Labs 07/04/24 17:25 07/05/24 03:35 Labs: Laboratory Results - last 24 hr 07/02/24 07/02/24 07/02/24 07:40 10:15 12:10 WBC RBC Hgb Hct MCV MCH MCHC RDW Std Deviation Plt Count Neut % (Auto) Lymph % (Auto) [place] % (Auto) Eos % (Auto) Baso % (Auto) Neut # (Auto) Lymph # (Auto) [place] # (Auto) Eos # (Auto) Baso # (Auto) Immature Gran # (Auto) Absolute Nucleated RBC Immature Gran % Nucleated RBC % Sodium 111 L* 112 L* Potassium Chloride Carbon Dioxide Anion Gap BUN Creatinine Estim Creat Clear Calc eGFR BUN/Creatinine Ratio Glucose Calculated Osmolality Calcium Corrected Calcium Total Bilirubin AST ALT Alkaline Phosphatase Total Protein Albumin Globulin Albumin/Globulin Ratio Ur Collection Type Catheter Urine Color Lt-Yellow Urine Clarity Clear Urine pH 6.5 Ur Specific [place] 1.003 Urine Protein Negative Urine Glucose (UA) Negative Urine Ketones Negative Urine Blood Negative Urine Nitrite Negative Urine Bilirubin Negative Urine Urobilinogen (Auto) Negative Ur Leukocyte Esterase Positive Urine RBC 1 Urine WBC 1 Ur Squamous Epith Cells 0 Urine Bacteria 1+ A Urine Opiates Screen Negative Urine Fentanyl Screen Negative Ur Barbiturates Screen Negative U Amphetamin/Meth Scrn Negative U Benzodiazepines Scrn Negative U Cocaine Metab Screen Negative U Marijuana (THC) Screen Negative 07/02/24 07/02/24 07/02/24 14:15 16:06 17:47 WBC RBC Hgb Hct MCV MCH MCHC RDW Std Deviation Plt Count Neut % (Auto) Lymph % (Auto) [place] % (Auto) Eos % (Auto) Baso % (Auto) Neut # (Auto) Lymph # (Auto) [place] # (Auto) Eos # (Auto) Baso # (Auto) Immature Gran # (Auto) Absolute Nucleated RBC Immature Gran % Nucleated RBC % Sodium 113 L* 112 L* 113 L* Potassium Chloride Carbon Dioxide Anion Gap BUN Creatinine Estim Creat Clear Calc eGFR BUN/Creatinine Ratio Glucose Calculated Osmolality Calcium Corrected Calcium Total Bilirubin AST ALT Alkaline Phosphatase Total Protein Albumin Globulin Albumin/Globulin Ratio Ur Collection Type Urine Color Urine Clarity Urine pH Ur Specific [place] Urine Protein Urine Glucose (UA) Urine Ketones Urine Blood Urine Nitrite Urine Bilirubin Urine Urobilinogen (Auto) Ur Leukocyte Esterase Urine RBC Urine WBC Ur Squamous Epith Cells Urine Bacteria Urine Opiates Screen Urine Fentanyl Screen Ur Barbiturates Screen U Amphetamin/Meth Scrn U Benzodiazepines Scrn U Cocaine Metab Screen U Marijuana (THC) Screen 07/02/24 07/02/24 07/03/24 19:59 22:29 00:33 WBC RBC Hgb Hct MCV MCH MCHC RDW Std Deviation Plt Count Neut % (Auto) Lymph % (Auto) [place] % (Auto) Eos % (Auto) Baso % (Auto) Neut # (Auto) Lymph # (Auto) [place] # (Auto) Eos # (Auto) Baso # (Auto) Immature Gran # (Auto) Absolute Nucleated RBC Immature Gran % Nucleated RBC % Sodium 112 L* 114 L* 113 L* Potassium Chloride Carbon Dioxide Anion Gap BUN Creatinine Estim Creat Clear Calc eGFR BUN/Creatinine Ratio Glucose Calculated Osmolality Calcium Corrected Calcium Total Bilirubin AST ALT Alkaline Phosphatase Total Protein Albumin Globulin Albumin/Globulin Ratio Ur Collection Type Urine Color Urine Clarity Urine pH Ur Specific [place] Urine Protein Urine Glucose (UA) Urine Ketones Urine Blood Urine Nitrite Urine Bilirubin Urine Urobilinogen (Auto) Ur Leukocyte Esterase Urine RBC Urine WBC Ur Squamous Epith Cells Urine Bacteria Urine Opiates Screen Urine Fentanyl Screen Ur Barbiturates Screen U Amphetamin/Meth Scrn U Benzodiazepines Scrn U Cocaine Metab Screen U Marijuana (THC) Screen 07/03/24 05:25 WBC 6.0 RBC 3.89 L Hgb 13.6 Hct 36.5 L MCV 94 MCH 35.0 MCHC 37.3 H RDW Std Deviation 42.5 Plt Count 164 Neut % (Auto) 69 Lymph % (Auto) 14 [place] % (Auto) 14 H Eos % (Auto) 2 Baso % (Auto) 1 Neut # (Auto) 4.2 Lymph # (Auto) 0.8 L [place] # (Auto) 0.8 Eos # (Auto) 0.1 Baso # (Auto) 0.1 Immature Gran # (Auto) 0.03 H Absolute Nucleated RBC 0.00 Immature Gran % 1 H Nucleated RBC % 0 Sodium 114 L* Potassium 3.5 Chloride 85 L Carbon Dioxide 21.5 Anion Gap 8 BUN 7 L Creatinine 0.6 Estim Creat Clear Calc 171.0 eGFR > 60 BUN/Creatinine Ratio 12 Glucose 91 Calculated Osmolality 229 L Calcium 8.3 Corrected Calcium 8.6 Total Bilirubin 1.7 H D AST 108 H ALT 79 H Alkaline Phosphatase 76 Total Protein 6.6 Albumin 3.6 Globulin 3.0 Albumin/Globulin Ratio 1.2 Ur Collection Type Urine Color Urine Clarity Urine pH Ur Specific [place] Urine Protein Urine Glucose (UA) Urine Ketones Urine Blood Urine Nitrite Urine Bilirubin Urine Urobilinogen (Auto) Ur Leukocyte Esterase Urine RBC Urine WBC Ur Squamous Epith Cells Urine Bacteria Urine Opiates Screen Urine Fentanyl Screen Ur Barbiturates Screen U Amphetamin/Meth Scrn U Benzodiazepines Scrn U Cocaine Metab Screen U Marijuana (THC) Screen Assessment & Plan Additional Assessment & Plan Additional Plan: 68-year-old male with past medical history of morbid obesity, hypertension, hyperlipidemia, atrial fibrillation on Xarelto, chronic alcoholism presented to the hospital with chief complaints of weakness in the lower extremities and having multiple falls since 3 days and admitted for hyponatremia # Hyponatremia # Hypochloremia Likely beer potomania in the setting of chronic alcoholism, likely could be having mild chronic hyponatremia -Patient is on hydrochlorothiazide since 10 years for his blood pressures -Patient had history of chronic alcoholism and before admission, patient had 12- 13 beers every day with minimal food intake -Patient is admitted to hospital with bilateral lower extremity weakness and multiple falls -Denies fever, nausea, vomitings, diarrhea -Baseline labs are not available -Sodium at the time of admission is 109, osmolality is 218 -TSH, free T4, glucose within normal limits Plan -Fluid restriction of 1000 mL -Strict input and output monitoring -Urine electrolytes are ordered -Sodium check every second hourly -Patient was found to have a sodium improvement from 109-116 this morning, for which patient received desmopressin dose -Recommended sodium correction of 4-6 mEq in first 24 hours #A-fib #Elevated transaminases #Prominent pancreatic head #Alcohol Use Disorder #Hypertension #Hyperlipidemia #Hx of NISREEN #Hx of morbid obesity #Nicotine dependence -Rest of the medical conditions to be treated as per primary team Quality - progress note Quality Measures Quality Measures: VTE prophylaxis Reason for Continued Stay Reason for Continued Stay: further monitoring
[2024-07-03 11:13] LABS: Chloride,Urine < 20.0 mMol/L (55.0-125.0); Potassium,Urine 15 mMol/L (12-62); Sodium,Urine < 10 mMol/L (20-110)
[2024-07-03 11:14] LABS: Chloride, 24 hr Urine 12 mEq/24hr (110-250); Chloride, Urine Volume 580 mL/24hr (600-1800); Potassium, 24hr Urine 13 mEq/24hr (25-125); Potassium, Urine Volume 850 mL/24hr (600-1800); Sodium, Urine Volume 850 mL/24hr (600-1800); Sodium,24hr Urine 850 mEq/24hr (40-220)
--- NOTE | 2024-07-03 11:15 | ESPR_ITS ---
<Statement entered by Robe Barth MD - 07/04/24 10:34> I have discussed and was present for the essential components of the history, physical examination, diagnosis, and treatment plan with the resident. I agree with the patient's care as documented by the resident and amended herein by me. Robe Barth MD FACP. Documentation for date of: 07/03/24 Subjective Subjective Interval history: Patient seen and examined No overnight event Mentation at baseline No complaints Rounded with RN Exam Vital Signs Temp Pulse Resp BP Pulse Ox O2 Del Method 97.0 F 78 11 L 121/83 100 BiPAP 07/03/24 08:00 07/03/24 08:40 07/03/24 08:00 07/03/24 08:40 07/03/24 08:00 07/03/24 08:00 Narrative Exam General: Awake. Morbidly obese HEENT: Normocephalic, atraumatic, mucous membranes moist. Heart: Irregular rate and rhythm, no murmurs. Lungs: Clear to auscultation with no wheezing or crackles. Abdomen: Soft, nondistended, nontender, positive bowel sounds. ?No guarding or rebound tenderness. Neurologic: Alert and oriented x3, no gross neurological deficit, and patient able to move all 4 extremities. Extremities: No edema. Skin: No rash or ecchymoses. Objective Labs 07/03/24 05:25 07/03/24 05:25 Labs: Laboratory Results - last 24 hr 07/02/24 07/02/24 07/02/24 12:10 14:15 16:06 WBC RBC Hgb Hct MCV MCH MCHC RDW Std Deviation Plt Count Neut % (Auto) Lymph % (Auto) [place] % (Auto) Eos % (Auto) Baso % (Auto) Neut # (Auto) Lymph # (Auto) [place] # (Auto) Eos # (Auto) Baso # (Auto) Immature Gran # (Auto) Absolute Nucleated RBC Immature Gran % Nucleated RBC % Sodium 112 L* 113 L* 112 L* Potassium Chloride Carbon Dioxide Anion Gap BUN Creatinine Estim Creat Clear Calc eGFR BUN/Creatinine Ratio Glucose Calculated Osmolality Calcium Corrected Calcium Total Bilirubin AST ALT Alkaline Phosphatase Total Protein Albumin Globulin Albumin/Globulin Ratio Urine Total Volume Ur Sodium mmol/L Ur Sodium 24 Hour Ur Potassium mmol/L Ur Potassium 24 Hour Ur Chloride mmol/L Ur Chloride 24 Hour 07/02/24 07/02/24 07/02/24 17:47 19:59 22:29 WBC RBC Hgb Hct MCV MCH MCHC RDW Std Deviation Plt Count Neut % (Auto) Lymph % (Auto) [place] % (Auto) Eos % (Auto) Baso % (Auto) Neut # (Auto) Lymph # (Auto) [place] # (Auto) Eos # (Auto) Baso # (Auto) Immature Gran # (Auto) Absolute Nucleated RBC Immature Gran % Nucleated RBC % Sodium 113 L* 112 L* 114 L* Potassium Chloride Carbon Dioxide Anion Gap BUN Creatinine Estim Creat Clear Calc eGFR BUN/Creatinine Ratio Glucose Calculated Osmolality Calcium Corrected Calcium Total Bilirubin AST ALT Alkaline Phosphatase Total Protein Albumin Globulin Albumin/Globulin Ratio Urine Total Volume Ur Sodium mmol/L Ur Sodium 24 Hour Ur Potassium mmol/L Ur Potassium 24 Hour Ur Chloride mmol/L Ur Chloride 24 Hour 07/03/24 07/03/24 07/03/24 00:33 05:25 10:00 WBC 6.0 RBC 3.89 L Hgb 13.6 Hct 36.5 L MCV 94 MCH 35.0 MCHC 37.3 H RDW Std Deviation 42.5 Plt Count 164 Neut % (Auto) 69 Lymph % (Auto) 14 [place] % (Auto) 14 H Eos % (Auto) 2 Baso % (Auto) 1 Neut # (Auto) 4.2 Lymph # (Auto) 0.8 L [place] # (Auto) 0.8 Eos # (Auto) 0.1 Baso # (Auto) 0.1 Immature Gran # (Auto) 0.03 H Absolute Nucleated RBC 0.00 Immature Gran % 1 H Nucleated RBC % 0 Sodium 113 L* 114 L* Potassium 3.5 Chloride 85 L Carbon Dioxide 21.5 Anion Gap 8 BUN 7 L Creatinine 0.6 Estim Creat Clear Calc 171.0 eGFR > 60 BUN/Creatinine Ratio 12 Glucose 91 Calculated Osmolality 229 L Calcium 8.3 Corrected Calcium 8.6 Total Bilirubin 1.7 H D AST 108 H ALT 79 H Alkaline Phosphatase 76 Total Protein 6.6 Albumin 3.6 Globulin 3.0 Albumin/Globulin Ratio 1.2 Urine Total Volume 850 Ur Sodium mmol/L < 10 L Ur Sodium 24 Hour 850 H Ur Potassium mmol/L Ur Potassium 24 Hour Ur Chloride mmol/L Ur Chloride 24 Hour 07/03/24 07/03/24 10:00 10:00 WBC RBC Hgb Hct MCV MCH MCHC RDW Std Deviation Plt Count Neut % (Auto) Lymph % (Auto) [place] % (Auto) Eos % (Auto) Baso % (Auto) Neut # (Auto) Lymph # (Auto) [place] # (Auto) Eos # (Auto) Baso # (Auto) Immature Gran # (Auto) Absolute Nucleated RBC Immature Gran % Nucleated RBC % Sodium Potassium Chloride Carbon Dioxide Anion Gap BUN Creatinine Estim Creat Clear Calc eGFR BUN/Creatinine Ratio Glucose Calculated Osmolality Calcium Corrected Calcium Total Bilirubin AST ALT Alkaline Phosphatase Total Protein Albumin Globulin Albumin/Globulin Ratio Urine Total Volume 850 580 L Ur Sodium mmol/L Ur Sodium 24 Hour Ur Potassium mmol/L 15 Ur Potassium 24 Hour 13 L Ur Chloride mmol/L < 20.0 L Ur Chloride 24 Hour 12 L Quality Measures Quality Measures none Advance care planning discussed with:: patient Assessment & Plan Assessment Current Active Medications: Generic Name Dose Route Start Last Admin Trade Name Freq PRN Reason Stop Dose Admin Acetaminophen 650 mg 07/01/24 20:04 Acetaminophen 325 Mg Tablet PO 07/31/24 20:03 Q6H PRN Fever >101.5 Diltiazem HCl 240 mg 07/02/24 09:00 07/03/24 08:40 Diltiazem Cd 120 Mg Capcr PO 08/01/24 08:59 240 mg QDAY ANTONY Administration Folic Acid 1 mg 07/01/24 21:00 07/03/24 08:40 Folic Acid 1 Mg Tablet PO 07/06/24 20:59 1 mg BID ANTONY Administration Lisinopril 40 mg 07/02/24 09:00 07/03/24 08:39 Lisinopril 20 Mg Tablet PO 08/01/24 08:59 40 mg QDAY ANTONY Administration Lorazepam 0.5 mg 07/01/24 20:16 07/03/24 08:52 Lorazepam 0.5 Mg Tablet PO 07/06/24 20:15 0.5 mg Q4HR PRN Administration CIWA Score 2-6 Lorazepam 1 mg 07/01/24 20:16 07/02/24 22:43 Lorazepam 0.5 Mg Tablet PO 07/06/24 20:15 1 mg Q4HR PRN Administration CIWA SCORE 7-11 Lorazepam 2 mg 07/01/24 20:16 Lorazepam 0.5 Mg Tablet PO 07/06/24 20:15 Q4HR PRN CIWA SCORE 12-15 Lorazepam 1 mg 07/01/24 20:16 Lorazepam 2 Mg/Ml Vial IV X1 PRN Breakthrough Agitation Multivitamins 1 tab 07/02/24 09:00 07/03/24 08:40 Multivitamins Tablet PO 08/01/24 08:59 1 tab QDAY NATONY Administration Rivaroxaban 20 mg 07/02/24 17:30 07/02/24 18:06 Rivaroxaban 10 Mg Tablet PO 08/01/24 17:29 20 mg WSUPPER ANTONY Administration Thiamine HCl 100 mg 07/01/24 21:00 07/03/24 08:40 Thiamine 100 Mg Tablet PO 07/06/24 20:59 100 mg BID ANTONY Administration Plan Assessment Christina is a 68 y/o male with PMHx hypertension, hyperlipidemia, morbid obesity, A- fib (on Xarelto) who is admitted for acute on chronic severe hyponatremia. #Symptomatic Severe Hyponatremia likely 2/2 to beer potomania, acute (improving) Assessment Etiology likely 2/2 to beer potomania. Unlikely a chronic condition. Patient does have symptoms such as weakness and paresthesias in the lower extremities. No altered mentation. Normovolemic on exam, euvolemic labs, no acute neurologic symptoms, GCS 15. Pt is not altered at this point, AAOx3, however will still require frequent sodium checks Plan: - Hold HCTZ. - Free water restriction - Monitor serum sodium q4h, avoid correction >8 mEq/L/24h. - Trend Sodium - Get urine sodium, urine osmolality. - Neurochecks - Seizure precautions - Nephrology consulted, appreciated recommendations #A-fib [id number]: 3 Rate: Controlled Rhythm: Regular at this point AC: Xarleto 20 Unsure pt's heart failure status No echo on file Plan: - Continue with Xarelto 20 mg qday - Keep magnesium and potasium above 2 and 4 respectively to avoid any cardiac arrythmias #Elevated transaminases #Prominent pancreatic head #Alcohol Use Disorder #Alcoholic neuoropathy Chronic alcohol use (12-pack/day x10 years), at risk for withdrawal, malnutrition, hepatic injury. Elevated AST/ALT (AST>ALT 2:1 in alcoholic fashion), mild hyperbilirubinemia, PT/INR slightly elevated Lives alone, limited social support. Plan: - CIWA protocol for withdrawal monioring. - Administer thiamine, folate, multivitamins - CIWA protocol - Trend LFTs - start gabapetin 100mg BID #Hypertension #Hyperlipidemia Chronic Not taking statin Plan: ? Holding blood pressure medicines as blood pressures soft at this point ? F/u Lipid panel #Hx of NISREEN #Hx of morbid obesity Plan: - Resumed CPAP HS #Nicotine dependence Plan: - Nicotine patch - Discussed smoking cessation - Consider Chantix outpatient #Health Maintenance Disposition: Telemetry DVT prophylaxis: Xarelto GI prophylaxis: None indicated at this time Diet: Cardiac CODE STATUS: Full - Patient's care was discussed with my attending physician, Dr. Tab Smith MD Internal Medicine PGY-3
[2024-07-03] MEDS: NICOTINE PATCH 14 MG/24 HR PATCH.TD24 TOP (14:14)
[2024-07-03 16:31] LABS: Sodium 117 mMol/L (136-145)
[2024-07-03] MEDS: RIVAROXABAN 10 MG TABLET 20 MG PO (17:42)
[2024-07-03 20:07] LABS: Sodium 114 mMol/L (136-145)
[2024-07-03] MEDS: SODIUM CHLORIDE 1 GM TABLET PO (22:02)
[2024-07-03 23:43] LABS: Sodium 114 mMol/L (136-145)
[2024-07-04] VITALS (7 sets, daily range): BP systolic 121–160; BP diastolic 76–96; PULSE 67–113; RESP 13–19; TEMP 35.8–36.8; O2SAT 95–98; BMI 43.2
[2024-07-04 03:47] LABS: Sodium 114 mMol/L (136-145)
[2024-07-04 06:06] LABS: Basophils % (Auto) 1 % (0-2.5); Eosinophils # (Auto) 0.1 Thou/mm3 (0.0-0.5); Eosinophils % (Auto) 1 % (0-10); Hemoglobin 14.6 g/dL (13.5-16.0); Immature Granulocytes % (Auto) 1 % (0-0); Immature Granulocytes Auto 0.03 Thou/mm3 (0.00-0.00); Lymphocytes # (Auto) 0.9 Thou/mm3 (1.0-4.8); Lymphocytes % (Auto) 14 % (10-50); Mean Corpuscular HGB Conc 37.4 g/dl (31.0-37.0); Mean Corpuscular Hemoglobin 34.5 pg (25.0-35.0); Mean Corpuscular Volume 92 fL (80-100); Monocytes # (Auto) 0.6 Thou/mm3 (0.0-0.8); Monocytes % (Auto) 10 % (0-12); Neutrophils # (Auto) 4.7 Thou/mm3 (1.8-7.7); Neutrophils % (Auto) 74 % (37-80); Nucleated Red Blood Cell % 0 /100 WBC (0); Platelet Count 184 Thou/mm3 (140-440); RDW Standard Deviation 41.3 fL (35.1-43.9); Red Blood Count 4.23 Miln/mm3 (4.50-5.90); White Blood Count 6.4 Thou/mm3 (3.8-10.6)
[2024-07-04 06:36] LABS: Alanine Aminotransferase 90 U/L (10-49); Albumin, Serum 3.9 gm/dL (3.4-4.8); Albumin/Globulin Ratio 1.1 (1.2-2.2); Alkaline Phosphatase 83 U/L (46-116); Anion Gap 11 (7-16); Aspartate Amino Transferase 137 U/L (0-34); BUN/Creatinine Ratio 13 Ratio (12-20); Bilirubin,Total 1.6 mg/dL (0.3-1.2); Blood Urea Nitrogen 8 mg/dL (9-23); Calcium 9.4 mg/dL (8.3-10.6); Calcium (Corrected) 9.5 mg/dL (8.5-10.1); Carbon Dioxide 23.1 mMol/L (20.0-31.0); Chloride 81 mMol/L (98-107); Creatinine (Component) 0.6 mg/dL (0.6-1.3); Estimated Creatinine Clearance 168.8 mL/min (>60); Globulin 3.4 gm/dL (2.3-3.5); Glucose 90 mg/dL (74-106); Osmolality,Calculated 231 (275-295); Potassium 3.8 mMol/L (3.4-5.1); Total Protein 7.3 gm/dL (5.7-8.2); eGFR > 60 See Note
[2024-07-04 06:45] LABS: Sodium 115 mMol/L (136-145)
--- NOTE | 2024-07-04 08:56 | ESPR_ITS ---
<Statement entered by Miguel Ángel Fitzpatrick MD - 07/05/24 14:41> TOTAL CC TIME: 45 MIN I saw and evaluated the patient. I reviewed the resident?s note and agree with findings and plan as documented in the resident?s note. Upon my evaluation, this patient had a high probability of imminent or life- threatening deterioration due to critical hyponatremia which required my direct attention, intervention, and personal management. This time is exclusive of time spent on procedures, which are documented separately if performed. Remains undercorrected for severe hyponatremia - recommend 3%HT saline at 15ml / hr if not improved after starting NS No evid of severe alcohol withdrawal possible GIB noted - monitor h/h and agree w/ protonix bid we will cont to follow Documentation for date of: 07/04/24 Subjective Subjective Interval history: The patient is a 68-year-old male with a past medical history of hypertension, hyperlipidemia, morbid obesity, and atrial fibrillation on Xarelto. He presented overnight with right foot weakness, numbness, and tingling. Initial labs revealed severe hyponatremia (Na 109). He also has a history of alcohol abuse, consuming approximately 12 beers daily for the past 10 years, with his last drink being yesterday. The patient denied chest pain, shortness of breath, vomiting, headache, or visual/auditory hallucinations. Home medications include hydrochlorothiazide (a potential contributor to hyponatremia), lisinopril, Cardizem, and Xarelto. ED Course: Hemodynamically stable, saturating well on room air. Labs: Hypochloremic hypoosmolar hyponatremia, mild transaminitis likely secondary to alcohol use. Head CT: Negative for acute hemorrhage, mass, or midline shift. Management: Received 500L normal saline in the ED and was admitted for further management of hyponatremia. 07/03/2024: Patient seen and examined at bedside. No acute overnight events. Sodium was checked every 3 hours, the last is 114, which is in acceptable range. D5W was stopped yesterday, continue fluid restriction 1000 mL daily, nephrology also is on board, urine electrolytes revealed dilute urine, sodium, potassium less than 10, chloride less than 20, however patient made total of 925 cc of urine output in 24-hour. CIWA was 0 overnight. Continue to monitor, continue fluid restriction, continue every 4 hours sodium check, will continue seizure precaution. We are agree with primary team management. 07/04/24: patient was examined bedside this morning, no acute overninght event, his sodium this morning is 115. Na Q4 hr nephrology started him on NS at the rate 100 mL/h. ICU recommends to start the patient on hypertonic saline if the neck sodium is not improved at the rate of 15 mL/h. And get a central line by radiology for frequent sodium checks and possible hypertonic saline. Exam Vital Signs Temp Pulse Resp BP Pulse Ox O2 Del Method 97.3 F 72 19 126/76 96 BiPAP 07/04/24 04:00 07/04/24 04:00 07/04/24 04:00 07/04/24 04:00 07/04/24 04:00 07/04/24 04:00 Narrative Exam GENERAL: no acute distress, AAO x3, obese HEENT: Head AT/ NC. Mucous membranes moist. PERRL. NECK: Supple, no lymphadenopathy, no carotid bruits. CARDIOVASCULAR: RRR. Normal S1/S2, No m/r/g. No pitting edema of bilateral LEs. RESPIRATORY: CTAB. No wheezing, rhonchi, crackles. GASTROINTESTINAL: Abdomen soft, non tender no palpable masses. Bowel sounds present in all 4 quadrants. MUSCULOSKELETAL:? No cyanosis or edema, no visible joint swelling. NEUROLOGICAL: CN II-XII grossly intact. No focal deficits. Sensation intact, symmetric. PSYCHIATRIC: Awake and alert, not agitated, normal mood and affect. INTEGUMENTARY: No obvious rashes, no jaundice, normal turgor. Objective Labs 07/04/24 05:54 07/04/24 05:54 Labs: Laboratory Results - last 24 hr 07/03/24 07/03/24 07/03/24 10:00 10:00 10:00 WBC RBC Hgb Hct MCV MCH MCHC RDW Std Deviation Plt Count Neut % (Auto) Lymph % (Auto) [place] % (Auto) Eos % (Auto) Baso % (Auto) Neut # (Auto) Lymph # (Auto) [place] # (Auto) Eos # (Auto) Baso # (Auto) Immature Gran # (Auto) Absolute Nucleated RBC Immature Gran % Nucleated RBC % Sodium Potassium Chloride Carbon Dioxide Anion Gap BUN Creatinine Estim Creat Clear Calc eGFR BUN/Creatinine Ratio Glucose Calculated Osmolality Calcium Corrected Calcium Total Bilirubin AST ALT Alkaline Phosphatase Total Protein Albumin Globulin Albumin/Globulin Ratio Urine Total Volume 850 850 580 L Ur Sodium mmol/L < 10 L Ur Sodium 24 Hour 850 H Ur Potassium mmol/L 15 Ur Potassium 24 Hour 13 L Ur Chloride mmol/L < 20.0 L Ur Chloride 24 Hour 12 L 07/03/24 07/03/24 07/03/24 15:54 19:40 23:25 WBC RBC Hgb Hct MCV MCH MCHC RDW Std Deviation Plt Count Neut % (Auto) Lymph % (Auto) [place] % (Auto) Eos % (Auto) Baso % (Auto) Neut # (Auto) Lymph # (Auto) [place] # (Auto) Eos # (Auto) Baso # (Auto) Immature Gran # (Auto) Absolute Nucleated RBC Immature Gran % Nucleated RBC % Sodium 117 L* 114 L* 114 L* Potassium Chloride Carbon Dioxide Anion Gap BUN Creatinine Estim Creat Clear Calc eGFR BUN/Creatinine Ratio Glucose Calculated Osmolality Calcium Corrected Calcium Total Bilirubin AST ALT Alkaline Phosphatase Total Protein Albumin Globulin Albumin/Globulin Ratio Urine Total Volume Ur Sodium mmol/L Ur Sodium 24 Hour Ur Potassium mmol/L Ur Potassium 24 Hour Ur Chloride mmol/L Ur Chloride 24 Hour 07/04/24 07/04/24 03:11 05:54 WBC 6.4 RBC 4.23 L Hgb 14.6 Hct 39.0 L MCV 92 MCH 34.5 MCHC 37.4 H RDW Std Deviation 41.3 Plt Count 184 Neut % (Auto) 74 Lymph % (Auto) 14 [place] % (Auto) 10 Eos % (Auto) 1 Baso % (Auto) 1 Neut # (Auto) 4.7 Lymph # (Auto) 0.9 L [place] # (Auto) 0.6 Eos # (Auto) 0.1 Baso # (Auto) 0.0 Immature Gran # (Auto) 0.03 H Absolute Nucleated RBC 0.00 Immature Gran % 1 H Nucleated RBC % 0 Sodium 114 L* 115 L* Potassium 3.8 Chloride 81 L Carbon Dioxide 23.1 Anion Gap 11 BUN 8 L Creatinine 0.6 Estim Creat Clear Calc 168.8 eGFR > 60 BUN/Creatinine Ratio 13 Glucose 90 Calculated Osmolality 231 L Calcium 9.4 Corrected Calcium 9.5 Total Bilirubin 1.6 H AST 137 H ALT 90 H Alkaline Phosphatase 83 Total Protein 7.3 Albumin 3.9 Globulin 3.4 Albumin/Globulin Ratio 1.1 L Urine Total Volume Ur Sodium mmol/L Ur Sodium 24 Hour Ur Potassium mmol/L Ur Potassium 24 Hour Ur Chloride mmol/L Ur Chloride 24 Hour Quality Measures Quality Measures none Advance care planning discussed with:: patient Assessment & Plan Assessment Current Active Medications: Generic Name Dose Route Start Last Admin Trade Name Freq PRN Reason Stop Dose Admin Acetaminophen 650 mg 07/01/24 20:04 Acetaminophen 325 Mg Tablet PO 07/31/24 20:03 Q6H PRN Fever >101.5 Diltiazem HCl 240 mg 07/02/24 09:00 07/03/24 08:40 Diltiazem Cd 120 Mg Capcr PO 08/01/24 08:59 240 mg QDAY ANTONY Administration Folic Acid 1 mg 07/01/24 21:00 07/03/24 21:02 Folic Acid 1 Mg Tablet PO 07/06/24 20:59 1 mg BID ANTONY Administration Sodium Chloride 1,000 mls @ 100 mls/hr 07/04/24 08:00 Ns IV 08/03/24 07:59 .Q10H ANTONY Lisinopril 40 mg 07/02/24 09:00 07/03/24 08:39 Lisinopril 20 Mg Tablet PO 08/01/24 08:59 40 mg QDAY ANTONY Administration Lorazepam 0.5 mg 07/01/24 20:16 07/03/24 15:54 Lorazepam 0.5 Mg Tablet PO 07/06/24 20:15 0.5 mg Q4HR PRN Administration CIWA Score 2-6 Lorazepam 1 mg 07/01/24 20:16 07/02/24 22:43 Lorazepam 0.5 Mg Tablet PO 07/06/24 20:15 1 mg Q4HR PRN Administration CIWA SCORE 7-11 Lorazepam 2 mg 07/01/24 20:16 Lorazepam 0.5 Mg Tablet PO 07/06/24 20:15 Q4HR PRN CIWA SCORE 12-15 Lorazepam 1 mg 07/01/24 20:16 Lorazepam 2 Mg/Ml Vial IV X1 PRN Breakthrough Agitation Multivitamins 1 tab 07/02/24 09:00 07/03/24 08:40 Multivitamins Tablet PO 08/01/24 08:59 1 tab QDAY ANTONY Administration Nicotine 14 mg 07/03/24 14:15 07/03/24 14:14 Nicotine Patch 14 Mg/24 Hr Patch.Td24 TOP 08/02/24 14:14 14 mg QDAY ANTONY Administration Pantoprazole Sodium 40 mg 07/04/24 08:00 Pantoprazole Inj 40 Mg Vial IV 08/03/24 07:59 QDAY ANTONY Rivaroxaban 20 mg 07/02/24 17:30 07/03/24 17:42 Rivaroxaban 10 Mg Tablet PO 08/01/24 17:29 20 mg WSUPPER ANTONY Administration Sodium Chloride 1 gm 07/04/24 09:00 Sodium Chloride 1 Gm Tablet PO 08/03/24 08:59 BID ANTONY Thiamine HCl 100 mg 07/01/24 21:00 07/03/24 21:02 Thiamine 100 Mg Tablet PO 07/06/24 20:59 100 mg BID ANTONY Administration Plan 68-year-old male with past medical history of hypertension on hydrochlorothiazide, hyperlipidemia, morbidly obese, A-fib on Xarelto who was admitted for severe hypochloremic hyponatremia most likely secondary due to periorbital pneumonia combined with medication side effect. ICU Consultation (07/02/2024): The ICU team was consulted due to severe hyponatremia and concern for rapid overcorrection. -Overnight Course: No acute events. -Serum sodium increased by 6 mEq over 12 hours (109 - 115)-concern for overcorrection -Primary team intervened with 1 dose of desmopressin (DDAVP) and 500 mL D5W. ICU Team Recommendations: #Acute hypoosmolar hypochloremic hyponatremia Beer potomania Medication induced hyponatremia -Continue current management. -Continue holding hydrochlorothiazide, consider discontinuing completely on discharge -Seizure precautions. -Frequent sodium monitoring , can be changed to every 4 hours -Goal: Limit sodium correction to <8-10= mEq in 24 hours to reduce the risk of osmotic demyelination. -DC DDAVP, DC D5W, -Fluid restriction 1000 mL daily, close monitor urine output. -Patient is having dilute urine, with less than 10 of urine sodium and potassium and chloride less than 20 -Patient upon our evaluation is AOx3, will continue close monitor, patient is still stable on floors, no neurological deficit. If any complications arise during the hospital course, the patient can be upgraded to the ICU for closer monitoring. 07/04/24: patient was examined bedside this morning, no acute overninght event, his sodium this morning is 115. Na Q4 hr nephrology started him on NS at the rate 100 mL/h. ICU recommends to start the patient on hypertonic saline if the neck sodium is not improved at the rate of 15 mL/h. And get a central line by radiology for frequent sodium checks and possible hypertonic saline.Close monitoring and gradual correction of sodium levels while minimizing the risk of complications. Frequent mental status assessments will need to be performed. #A-fib #Transaminitis #Prominent pancreatic head #Alcohol use disorder #Hypertension, hold hydrochlorothiazide #History of NISREEN on CPAP at night Disposition: Telemetry DVT prophylaxis: Xarelto GI prophylaxis: PPI Diet: Cardiac Lines: PIV CODE STATUS:Full code Patient care was discussed with attending physician Dr. Nanette Apple PGY-3
--- NOTE | 2024-07-04 09:59 | PC.SS ---
Rounding: Pending Hyponatremia workup, pt also has dark stools.
--- NOTE | 2024-07-04 10:01 | ESPR_ITS ---
Documentation for date of: 07/04/24 Subjective Subjective Interval history: Reason for consult: Hyponatremia History of present illness: 68-year-old male with past medical history of morbid obesity, hypertension, hyperlipidemia, atrial fibrillation on Xarelto, chronic alcoholism presented to the hospital with chief complaints of weakness in the lower extremities and having multiple falls since 3 days. Patient reported that since his son in 2005, patient is having more alcohol intake consuming about 12 beers in a day. He recently came to [place] 4 days before the day of admission to visit his sister and started to drink 12-14 beers per day with decreased food intake. Since 3 days patient noted that he is having severe weakness in the lower extremities due to which he had difficulty in walking had multiple falls without any injury to head or spine. Denies fever, shortness of breath, nausea, vomitings, diarrhea, palpitations, syncopal episodes, involuntary movements of hands and legs. ED course: -Vitals are stable at the time of admission except for mildly elevated blood pressure 165/94 mmHg -Labs at the time of admission showed WBC 7.1, Hb 13.9, platelets 176, sodium 109, potassium 4, chloride 78, bicarb 20.5, BUN 5, creatinine 0.6, glucose 96, osmolality 218, total bilirubin 1.7, AST 146, ALT 93, TSH 0.98, free T41.44 -CT head is negative for acute hemorrhage, mass effect or midline shift chest x- ray showed mild congestion in the right lung. Nephrology is consulted for hyponatremia 07/04/2024 patient currently seen in telemetry. Sodium 115. Added salt tablets. However yesterday's urine sodium was less than 10 and patient continues to have black stools with nausea and vomiting. Recommended for stool for C. difficile and also check for stool guaiac. Started him on normal saline Review of Systems Review of Systems Narrative Review of Systems: CONSTITUTIONAL: Patient denies any fever, chills. Complaining of fatigue HEENT: Denies any visual disturbances or hearing problems. CARDIOVASCULAR: Patient denies any chest pain, shortness of breath, swelling in the lower extremities. PULMONARY: Patient denies any shortness of breath, cough. GASTROINTESTINAL: Patient this morning complaining of dark ground emesis and black stools. GENITOURINARY: Patient denies any urinary symptoms of burning or frequency or hematuria, denies any form in the urine. SKIN: Denies any rash. MUSCULOSKELETAL: Denies any muscular skeletal problems of joint pains. Gait imbalance NEUROLOGICAL: Denies any neurological problems of strokes, seizures or confusion. Denies any memory problems. PSYCHIATRIC: Denies any depression or anxiety. LYMPHATICS : No lymphadenopathy Exam Vital Signs Temp Pulse Resp BP Pulse Ox O2 Del Method 36.1 C 80 13 125/90 H 98 Room Air 07/04/24 08:00 07/04/24 08:00 07/04/24 08:00 07/04/24 08:00 07/04/24 08:00 07/04/24 08:00 Narrative Exam General: Awake. Morbidly obese HEENT: Normocephalic, atraumatic, mucous membranes moist. Heart: Irregular rate and rhythm, no murmurs. Lungs: Clear to auscultation with no wheezing or crackles. Abdomen: Soft, nondistended, nontender, positive bowel sounds. ?No guarding or rebound tenderness. Neurologic: Alert and oriented x3, no gross neurological deficit, and patient able to move all 4 extremities. Extremities: No edema. Skin: No rash or ecchymoses. Objective Labs 07/04/24 17:25 07/05/24 03:35 Labs: Laboratory Results - last 24 hr 07/03/24 07/03/24 07/03/24 10:00 10:00 10:00 WBC RBC Hgb Hct MCV MCH MCHC RDW Std Deviation Plt Count Neut % (Auto) Lymph % (Auto) [place] % (Auto) Eos % (Auto) Baso % (Auto) Neut # (Auto) Lymph # (Auto) [place] # (Auto) Eos # (Auto) Baso # (Auto) Immature Gran # (Auto) Absolute Nucleated RBC Immature Gran % Nucleated RBC % Sodium Potassium Chloride Carbon Dioxide Anion Gap BUN Creatinine Estim Creat Clear Calc eGFR BUN/Creatinine Ratio Glucose Calculated Osmolality Calcium Corrected Calcium Total Bilirubin AST ALT Alkaline Phosphatase Total Protein Albumin Globulin Albumin/Globulin Ratio Urine Total Volume 850 850 580 L Ur Sodium mmol/L < 10 L Ur Sodium 24 Hour 850 H Ur Potassium mmol/L 15 Ur Potassium 24 Hour 13 L Ur Chloride mmol/L < 20.0 L Ur Chloride 24 Hour 12 L 07/03/24 07/03/24 07/03/24 15:54 19:40 23:25 WBC RBC Hgb Hct MCV MCH MCHC RDW Std Deviation Plt Count Neut % (Auto) Lymph % (Auto) [place] % (Auto) Eos % (Auto) Baso % (Auto) Neut # (Auto) Lymph # (Auto) [place] # (Auto) Eos # (Auto) Baso # (Auto) Immature Gran # (Auto) Absolute Nucleated RBC Immature Gran % Nucleated RBC % Sodium 117 L* 114 L* 114 L* Potassium Chloride Carbon Dioxide Anion Gap BUN Creatinine Estim Creat Clear Calc eGFR BUN/Creatinine Ratio Glucose Calculated Osmolality Calcium Corrected Calcium Total Bilirubin AST ALT Alkaline Phosphatase Total Protein Albumin Globulin Albumin/Globulin Ratio Urine Total Volume Ur Sodium mmol/L Ur Sodium 24 Hour Ur Potassium mmol/L Ur Potassium 24 Hour Ur Chloride mmol/L Ur Chloride 24 Hour 07/04/24 07/04/24 03:11 05:54 WBC 6.4 RBC 4.23 L Hgb 14.6 Hct 39.0 L MCV 92 MCH 34.5 MCHC 37.4 H RDW Std Deviation 41.3 Plt Count 184 Neut % (Auto) 74 Lymph % (Auto) 14 [place] % (Auto) 10 Eos % (Auto) 1 Baso % (Auto) 1 Neut # (Auto) 4.7 Lymph # (Auto) 0.9 L [place] # (Auto) 0.6 Eos # (Auto) 0.1 Baso # (Auto) 0.0 Immature Gran # (Auto) 0.03 H Absolute Nucleated RBC 0.00 Immature Gran % 1 H Nucleated RBC % 0 Sodium 114 L* 115 L* Potassium 3.8 Chloride 81 L Carbon Dioxide 23.1 Anion Gap 11 BUN 8 L Creatinine 0.6 Estim Creat Clear Calc 168.8 eGFR > 60 BUN/Creatinine Ratio 13 Glucose 90 Calculated Osmolality 231 L Calcium 9.4 Corrected Calcium 9.5 Total Bilirubin 1.6 H AST 137 H ALT 90 H Alkaline Phosphatase 83 Total Protein 7.3 Albumin 3.9 Globulin 3.4 Albumin/Globulin Ratio 1.1 L Urine Total Volume Ur Sodium mmol/L Ur Sodium 24 Hour Ur Potassium mmol/L Ur Potassium 24 Hour Ur Chloride mmol/L Ur Chloride 24 Hour Assessment & Plan Additional Assessment & Plan Additional Plan: 68-year-old male with past medical history of morbid obesity, hypertension, hyperlipidemia, atrial fibrillation on Xarelto, chronic alcoholism presented to the hospital with chief complaints of weakness in the lower extremities and having multiple falls since 3 days and admitted for hyponatremia # Hyponatremia # Hypochloremia Likely beer potomania on admission in the setting of chronic alcoholism, likely could be having mild chronic hyponatremia -Patient is on hydrochlorothiazide since 10 years for his blood pressures -Patient had history of chronic alcoholism and before admission, patient had 12- 13 beers every day with minimal food intake -Patient is admitted to hospital with bilateral lower extremity weakness and multiple falls -Denies fever, nausea, vomitings, diarrhea -Baseline labs are not available -Sodium at the time of admission is 109, osmolality is 218 -TSH, free T4, glucose within normal limits Plan -Fluid restriction of liberalized to 1500 mL/h -Strict input and output monitoring -Urine electrolytes showed hypovolemic hyponatremia -Sodium check every 4hourly - sodium this morning 115. Added normal saline--if no improvement will add 3%. Currently no evidence of any neurological symptoms. Spoke to ICU. -Recommended sodium correction of 4-6 mEq rise in the next 24 hours #Acute on Chronic severe Hyponatremia #A-fib #Elevated transaminases #Prominent pancreatic head #Alcohol Use Disorder #Hypertension #Hyperlipidemia #Hx of NISREEN #Hx of morbid obesity #Nicotine dependence -Rest of the medical conditions to be treated as per primary team Thank you for allowing us to involved in the care of the patient Patient plan of care was discussed with the attending physician, Dr.Vemuri Eyad Zhou, PGY1 Quality - progress note Quality Measures Quality Measures: VTE prophylaxis Reason for Continued Stay Reason for Continued Stay: further monitoring
[2024-07-04] MEDS: ONDANSETRON INJ 2 MG/ML INJ 2 ML 4 MG IV (10:03)
[2024-07-04] MEDS: PANTOPRAZOLE INJ 40 MG VIAL IV ×3 (10:03→20:33)
[2024-07-04] MEDS: Lisinopril 20 MG TABLET 40 MG PO (10:04)
[2024-07-04] MEDS: THIAMINE 100 MG TABLET PO ×2 (10:04→20:33)
[2024-07-04] MEDS: MULTIVITAMINS TABLET 1 TAB PO (10:04)
[2024-07-04] MEDS: DILTIAZEM CD 120 MG CAPCR 240 MG PO (10:04)
[2024-07-04] MEDS: FOLIC ACID 1 MG TABLET PO ×2 (10:04→20:34)
[2024-07-04] MEDS: SODIUM CHLORIDE 1 GM TABLET PO ×2 (10:12→20:34)
[2024-07-04] MEDS: SODIUM CHLORIDE 0.9% 1000 ML 1,000 ML 100 ML IV (10:12)
[2024-07-04 10:13] LABS: Hemoglobin 14.5 g/dL (13.5-16.0)
[2024-07-04 10:38] LABS: Sodium 115 mMol/L (136-145)
[2024-07-04 10:50] LABS: Stool for WBCs Negative (Negative)
--- NOTE | 2024-07-04 11:20 | PC.SS ---
Addendum entered by Aria Crowe 07/04/24 12:06: SS spoke to Monica and she gave SS Peg #[phone], SS gave Dr. Watson info for team to update her Original Note: SS was contacted by MIA Yin, that pt dionicio Ruvalcaba is trying to get update on pt. Pt identified his sister Monica as his DM and signal person. SS went and met with pt at bedside to discuss matter. Per pt he is okay for Nino Ruvalcaba to get an update but wishes to keep his sister Monica as his DM. Pt did not have Peg contact information. SS attempted to call Monica [phone] to get Peg #, no answer. VM left.
--- NOTE | 2024-07-04 12:25 | PC.SS ---
SS informed Dr. Watson of need for PT Eval for DC planning, per Team we will wait till pt is more stable.
[2024-07-04] MEDS: NICOTINE PATCH 14 MG/24 HR PATCH.TD24 TOP (12:38)
[2024-07-04] MEDS: METOCLOPRAMIDE INJ 5 MG/ML VIAL 2 ML 10 MG IVP (12:39)
[2024-07-04 13:40] LABS: Clostridium Difficile PCR Negative (Negative)
--- NOTE | 2024-07-04 14:26 | ESPR_ITS ---
<Statement entered by Reanna Padilla MD - 07/04/24 18:09> Patient seen and examined at bedside. No acute overnight events reported. Patient was seen actively vomiting, and nauseous. Patient also was complaining of dark tarry stools, but denied any fresh blood. Repeat H&H showed hemoglobin was stable at 14.5. Repeat sodium check showed patient's sodium still continues to be 115. Per ICU recommendations, will start patient on hypertonic saline at 15 mL/h. Will also consult IR for central line placement in case patient would need a higher rate. I discussed with and supervised the geotechnical intern physician who took care of this patient. I personally saw and examined the patient and discussed the assessment and plan with the entire medicine team, including my attending Dr. Watson, I agree with most of the assessment and plan as documented below Reanna Padilla M.D. PGY-2 Documentation for date of: 07/04/24 Subjective Subjective Interval history: No overnight events. Patient seen examined at bedside, endorsing nausea with episode of vomiting. Patient reports dark tarry stools, had episode of abdominal pain that has resolved. Denies fevers, chills, shortness of breath, chest pain, headaches, muscle aches. Will place central line due to frequent blood draws. Initiated hypertonic saline, will monitor closely. Exam Vital Signs Temp Pulse Resp BP Pulse Ox O2 Del Method 96.8 F 91 18 133/95 H 98 Room Air 07/04/24 12:00 07/04/24 12:00 07/04/24 12:00 07/04/24 12:00 07/04/24 12:00 07/04/24 12:00 Narrative Exam General: Awake. Morbidly obese HEENT: Normocephalic, atraumatic, mucous membranes moist. Heart: Irregular rate and rhythm, no murmurs. Lungs: Clear to auscultation with no wheezing or crackles. Abdomen: Soft, nondistended, nontender, positive bowel sounds. ?No guarding or rebound tenderness. Neurologic: Alert and oriented x3, no gross neurological deficit, and patient able to move all 4 extremities. Extremities: No edema. Skin: No rash or ecchymoses. Objective Labs 07/04/24 09:37 07/04/24 15:09 Labs: Laboratory Results - last 24 hr 07/03/24 07/03/24 07/03/24 15:54 19:40 23:25 WBC RBC Hgb Hct MCV MCH MCHC RDW Std Deviation Plt Count Neut % (Auto) Lymph % (Auto) [place] % (Auto) Eos % (Auto) Baso % (Auto) Neut # (Auto) Lymph # (Auto) [place] # (Auto) Eos # (Auto) Baso # (Auto) Immature Gran # (Auto) Absolute Nucleated RBC Immature Gran % Nucleated RBC % Sodium 117 L* 114 L* 114 L* Potassium Chloride Carbon Dioxide Anion Gap BUN Creatinine Estim Creat Clear Calc eGFR BUN/Creatinine Ratio Glucose Calculated Osmolality Calcium Corrected Calcium Total Bilirubin AST ALT Alkaline Phosphatase Total Protein Albumin Globulin Albumin/Globulin Ratio Stool for White Cells Stl C. diff Tox B Gene 07/04/24 07/04/24 07/04/24 03:11 05:54 08:30 WBC 6.4 RBC 4.23 L Hgb 14.6 Hct 39.0 L MCV 92 MCH 34.5 MCHC 37.4 H RDW Std Deviation 41.3 Plt Count 184 Neut % (Auto) 74 Lymph % (Auto) 14 [place] % (Auto) 10 Eos % (Auto) 1 Baso % (Auto) 1 Neut # (Auto) 4.7 Lymph # (Auto) 0.9 L [place] # (Auto) 0.6 Eos # (Auto) 0.1 Baso # (Auto) 0.0 Immature Gran # (Auto) 0.03 H Absolute Nucleated RBC 0.00 Immature Gran % 1 H Nucleated RBC % 0 Sodium 114 L* 115 L* Potassium 3.8 Chloride 81 L Carbon Dioxide 23.1 Anion Gap 11 BUN 8 L Creatinine 0.6 Estim Creat Clear Calc 168.8 eGFR > 60 BUN/Creatinine Ratio 13 Glucose 90 Calculated Osmolality 231 L Calcium 9.4 Corrected Calcium 9.5 Total Bilirubin 1.6 H AST 137 H ALT 90 H Alkaline Phosphatase 83 Total Protein 7.3 Albumin 3.9 Globulin 3.4 Albumin/Globulin Ratio 1.1 L Stool for White Cells Negative Stl C. diff Tox B Gene Negative 07/04/24 09:37 WBC RBC Hgb 14.5 Hct 39.0 L MCV MCH MCHC RDW Std Deviation Plt Count Neut % (Auto) Lymph % (Auto) [place] % (Auto) Eos % (Auto) Baso % (Auto) Neut # (Auto) Lymph # (Auto) [place] # (Auto) Eos # (Auto) Baso # (Auto) Immature Gran # (Auto) Absolute Nucleated RBC Immature Gran % Nucleated RBC % Sodium 115 L* Potassium Chloride Carbon Dioxide Anion Gap BUN Creatinine Estim Creat Clear Calc eGFR BUN/Creatinine Ratio Glucose Calculated Osmolality Calcium Corrected Calcium Total Bilirubin AST ALT Alkaline Phosphatase Total Protein Albumin Globulin Albumin/Globulin Ratio Stool for White Cells Stl C. diff Tox B Gene Quality Measures Quality Measures VTE prophylaxis Advance care planning discussed with:: patient Assessment & Plan Assessment Current Active Medications: Generic Name Dose Route Start Last Admin Trade Name Freq PRN Reason Stop Dose Admin Acetaminophen 650 mg 07/01/24 20:04 Acetaminophen 325 Mg Tablet PO 07/31/24 20:03 Q6H PRN Fever >101.5 Diltiazem HCl 240 mg 07/02/24 09:00 07/04/24 10:04 Diltiazem Cd 120 Mg Capcr PO 08/01/24 08:59 240 mg QDAY ANTONY Administration Folic Acid 1 mg 07/01/24 21:00 07/04/24 10:04 Folic Acid 1 Mg Tablet PO 07/06/24 20:59 1 mg BID ANTONY Administration Sodium Chloride 500 ml/ IV 500 mls @ 15 mls/hr 07/04/24 13:34 Miscellaneous Supplies IV 07/05/24 22:53 X1 ONE Lisinopril 40 mg 07/02/24 09:00 07/04/24 10:04 Lisinopril 20 Mg Tablet PO 08/01/24 08:59 40 mg QDAY ANTONY Administration Lorazepam 0.5 mg 07/01/24 20:16 07/03/24 15:54 Lorazepam 0.5 Mg Tablet PO 07/06/24 20:15 0.5 mg Q4HR PRN Administration CIWA Score 2-6 Lorazepam 1 mg 07/01/24 20:16 07/02/24 22:43 Lorazepam 0.5 Mg Tablet PO 07/06/24 20:15 1 mg Q4HR PRN Administration CIWA SCORE 7-11 Lorazepam 2 mg 07/01/24 20:16 Lorazepam 0.5 Mg Tablet PO 07/06/24 20:15 Q4HR PRN CIWA SCORE 12-15 Lorazepam 1 mg 07/01/24 20:16 Lorazepam 2 Mg/Ml Vial IV X1 PRN Breakthrough Agitation Multivitamins 1 tab 07/02/24 09:00 07/04/24 10:04 Multivitamins Tablet PO 08/01/24 08:59 1 tab QDAY ANTONY Administration Nicotine 14 mg 07/03/24 14:15 07/04/24 12:38 Nicotine Patch 14 Mg/24 Hr Patch.Td24 TOP 08/02/24 14:14 14 mg QDAY ANTONY Administration Ondansetron HCl 4 mg 07/04/24 09:22 07/04/24 10:03 Ondansetron Inj 2 Mg/Ml Inj 2 Ml IV 08/03/24 09:21 4 mg Q6HR PRN Administration NAUSEA OR VOMITING Protocol Pantoprazole Sodium 40 mg 07/04/24 08:00 07/04/24 10:11 Pantoprazole Inj 40 Mg Vial IV 08/03/24 07:59 40 mg QDAY ANTONY Administration Rivaroxaban 20 mg 07/02/24 17:30 07/03/24 17:42 Rivaroxaban 10 Mg Tablet PO 08/01/24 17:29 20 mg WSUPPER ANTONY Administration Sodium Chloride 1 gm 07/04/24 09:00 07/04/24 10:12 Sodium Chloride 1 Gm Tablet PO 08/03/24 08:59 1 gm BID ANTONY Administration Thiamine HCl 100 mg 07/01/24 21:00 07/04/24 10:04 Thiamine 100 Mg Tablet PO 07/06/24 20:59 100 mg BID ANTONY Administration Plan Christina is a 68 y/o male with PMHx hypertension, hyperlipidemia, morbid obesity, A- fib (on Xarelto) who is admitted for acute on chronic severe hyponatremia. #Symptomatic Severe Hyponatremia likely 2/2 to beer potomania, acute (improving) Etiology likely 2/2 to beer potomania. Unlikely a chronic condition. Patient does have symptoms such as weakness and paresthesias in the lower extremities. No altered mentation. Normovolemic on exam, euvolemic labs, no acute neurologic symptoms, GCS 15. Pt is not altered at this point, AAOx3, however will still require frequent sodium checks. Patient sodium still significantly low despite several days of treatment. Initiating hypertonic saline, will place central line for frequent blood draws. -Hold HCTZ. -Free water restriction -Monitor serum sodium q2h -Pending central line placement -Hypertonic saline at 15 mL/h x 500 mL -Salt tabs 1 g twice daily -Neurochecks -Seizure precautions -Nephrology consulted, appreciate recommendations #A-fib [id number]: 3 Rate: Controlled Rhythm: Regular at this point AC: Xarleto 20 Unsure pt's heart failure status No echo on file -Continue with Xarelto 20 mg qday -Keep magnesium and potasium above 2 and 4 respectively to avoid any cardiac arrythmias #Elevated transaminases #Prominent pancreatic head #Alcohol Use Disorder #Alcoholic neuoropathy Chronic alcohol use (12-pack/day x10 years), at risk for withdrawal, malnutrition, hepatic injury. Elevated AST/ALT (AST>ALT 2:1 in alcoholic fashion), mild hyperbilirubinemia, PT/INR slightly elevated Lives alone, limited social support. -Administer thiamine, folate, multivitamins -[facility] protocol -Trend LFTs -start gabapetin 100mg BID #Hypertension #Hyperlipidemia Chronic Not taking statin -Holding blood pressure medicines as blood pressures soft at this point #Hx of NISREEN #Hx of morbid obesity -Resumed CPAP HS #Nicotine dependence -Nicotine patch -Discussed smoking cessation -Consider Chantix outpatient DVT prophylaxis: Xarelto GI prophylaxis: None indicated at this time Diet: Cardiac CODE STATUS: Full Lines: Peripheral IV Plan of care discussed with senior resident Dr. Padilla PGY?[address] Watson. Adrian Boone MD PGY?1 Attending Provider Attestation/Addendum I have discussed and was present for the essential components of the history, physical examination, diagnosis, and treatment plan with the resident. I agree with the patient's care as documented by the resident and amended herein by me. Benton Watson DO. Although this document has been carefully reviewed, there may still be some phonetic and other typographical errors. These errors are purely grammatical due to imperfections in the software program and should not be construed in any way to compromise the substance of the patient's medical care during this visit.
[2024-07-04 14:38] LABS: Sodium 116 mMol/L (136-145)
[2024-07-04] MEDS: SODIUM CHLORIDE 3%(Hypertonic) 500 ML in PRE-MIXED 1 BAG 15 ML IV (14:44)
[2024-07-04 15:45] LABS: Sodium 117 mMol/L (136-145)
[2024-07-04] MEDS: SCOPOLAMINE 1 MG TDSY TOP (16:47)
--- NOTE | 2024-07-04 17:21 | PC.NURSE ---
Pt's niece (Peg) at bedside and was concerned about Pt's dehydration status. I informed Dr. Nair by phone. Peg agreed to come into tomorrow around [address] talk to Dr. Orozco who is the primary care.
[2024-07-04 17:45] LABS: Hematocrit 38.8 % (41.0-53.0); Hemoglobin 14.4 g/dL (13.5-16.0)
[2024-07-04 18:04] LABS: Sodium 116 mMol/L (136-145)
[2024-07-04] MEDS: cefTRIAXone/D5w 1gm IV premix 1 GM/50 ML BAG IV (19:02)
[2024-07-04] MEDS: OCTREOTIDE ACET INJ 1,000 MCG in SODIUM CHLORIDE 0.9% 100 ML 5.1 MCG IV (20:04)
[2024-07-04 20:40] LABS: Sodium 117 mMol/L (136-145)
--- NOTE | 2024-07-04 21:44 | PD.IMCONS ---
HPI Data of Consult Requesting Physician: Pasquale Watson DO Primary Care Provider: Physician No Primary/Family Consult Narrative Reason for consult: hematemesis History of present illness: 68 years old male admitted on 07/01/2024 with hyponatremia sodium of 111 with AST ALT of 1 3589 total bili of 2.5 and alk phos of 74 The reason for this consultation is hematemesis Patient does drink about 12 beers a day for last many years He does have a history of essential hypertension hyperlipidemia He came to the hospital with right foot weakness and right leg pain Liver ultrasound showed normal gallbladder moderate hepatomegaly and fatty liver Sodium is now up to 118 cc:: cc: Pasquale Watson DO Review of Systems Review of Systems Systems Reviewed: All systems reviewed, normal except as documented Past Medical History Surgical History OTHER SURGICAL HX: As in the history of present illness Meds Home Medications and Allergies Home Medications ?Medication ?Instructions ?Recorded ?Confirmed ?Type cholecalciferol (vitamin D3) 50 50 mcg PO DAILY 07/01/24 07/01/24 History mcg (2,000 unit) capsule diltiazem HCl 240 mg 480 mg PO Q24H 07/01/24 07/01/24 History capsule,extended release 24 hr hydrochlorothiazide 12.5 mg tablet 12.5 mg PO DAILY 07/01/24 07/01/24 History lisinopril 40 mg tablet 40 mg PO DAILY 07/01/24 07/01/24 History rivaroxaban 20 mg tablet (Xarelto) 20 mg PO Q24H 07/01/24 07/01/24 History Allergies Allergy/AdvReac Type Severity Reaction Status Date / Time No Known Allergies Allergy Verified 07/01/24 19:21 Exam Vital Signs Temp Pulse Resp BP Pulse Ox O2 Del Method 98.2 F 96 15 121/95 H 95 BiPAP 07/04/24 20:00 07/04/24 20:00 07/04/24 20:00 07/04/24 20:00 07/04/24 20:00 07/04/24 20:00 Constitutional Comments: Chronically ill-appearing Routine Respiratory Exam Comments: Normal to auscultation Routine Abdominal Exam Comments: Soft nontender Results Labs 07/04/24 17:25 07/04/24 19:53 Labs: Short CBC 07/04/24 07/04/24 07/04/24 Range/Units 05:54 09:37 17:25 WBC 6.4 (3.8-10.6) Thou/mm3 Hgb 14.6 14.5 14.4 (13.5-16.0) g/dL Hct 39.0 L 39.0 L 38.8 L (41.0-53.0) % Plt Count 184 (140-440) Thou/mm3 BMP 07/03/24 07/04/24 07/04/24 23:25 03:11 05:54 Sodium 114 L* 114 L* 115 L* Potassium 3.8 Chloride 81 L Carbon Dioxide 23.1 BUN 8 L Creatinine 0.6 Glucose 90 Calcium 9.4 07/04/24 07/04/24 07/04/24 09:37 13:55 15:09 Sodium 115 L* 116 L* 117 L* Potassium Chloride Carbon Dioxide BUN Creatinine Glucose Calcium 07/04/24 07/04/24 17:25 19:53 Sodium 116 L* 117 L* Potassium Chloride Carbon Dioxide BUN Creatinine Glucose Calcium Liver Function 07/04/24 Range/Units 05:54 Total Bilirubin 1.6 H (0.3-1.2) mg/dL AST 137 H (0-34) U/L ALT 90 H (10-49) U/L Alkaline Phosphatase 83 (46-116) U/L Albumin 3.9 (3.4-4.8) gm/dL Assessment and Plan Additional Assessment & Plan Additional Plan: # Hematemesis in the setting of chronic liver disease secondary to alcoholism Plan Agree with octreotide infusion and IV Protonix Consent obtained for fiberoptic esophagogastroduodenoscopy with possible therapeutic intervention possible biopsy under intravenous moderate sedation N.p.o. 6 AM tomorrow Serial CBC Other medical problems include # Hyponatremia # Chronic liver disease secondary to alcohol # Right foot pain # Fatty liver with hepatomegaly Thank you very much for the opportunity to participate in care of this patient
[2024-07-04 21:46] LABS: Sodium 118 mMol/L (136-145)
[2024-07-05] VITALS (11 sets, daily range): BP systolic 112–157; BP diastolic 80–102; PULSE 71–116; RESP 15–26; TEMP 35.9–36.3; O2SAT 96–100; BMI 42.3; BMI 42.2; BMI 13.0
[2024-07-05 00:23] LABS: Sodium 118 mMol/L (136-145)
[2024-07-05 02:08] LABS: Sodium 118 mMol/L (136-145)
[2024-07-05 04:27] LABS: Sodium 119 mMol/L (136-145)
[2024-07-05 06:26] LABS: Basophils % (Auto) 0 % (0-2.5); Eosinophils % (Auto) 0 % (0-10); Hematocrit 38.7 % (41.0-53.0); Hemoglobin 14.2 g/dL (13.5-16.0); Immature Granulocytes % (Auto) 1 % (0-0); Immature Granulocytes Auto 0.04 Thou/mm3 (0.00-0.00); Lymphocytes # (Auto) 0.6 Thou/mm3 (1.0-4.8); Lymphocytes % (Auto) 9 % (10-50); Mean Corpuscular HGB Conc 36.7 g/dl (31.0-37.0); Mean Corpuscular Hemoglobin 34.5 pg (25.0-35.0); Mean Corpuscular Volume 94 fL (80-100); Monocytes # (Auto) 0.7 Thou/mm3 (0.0-0.8); Monocytes % (Auto) 11 % (0-12); Neutrophils # (Auto) 5.4 Thou/mm3 (1.8-7.7); Neutrophils % (Auto) 79 % (37-80); Nucleated Red Blood Cell % 0 /100 WBC (0); Platelet Count 193 Thou/mm3 (140-440); RDW Standard Deviation 43.4 fL (35.1-43.9); Red Blood Count 4.11 Miln/mm3 (4.50-5.90); White Blood Count 6.8 Thou/mm3 (3.8-10.6)
[2024-07-05 07:09] LABS: Alanine Aminotransferase 91 U/L (10-49); Albumin, Serum 3.8 gm/dL (3.4-4.8); Albumin/Globulin Ratio 1.2 (1.2-2.2); Alkaline Phosphatase 87 U/L (46-116); Anion Gap 9 (7-16); Aspartate Amino Transferase 116 U/L (0-34); BUN/Creatinine Ratio 11 Ratio (12-20); Bilirubin,Total 1.7 mg/dL (0.3-1.2); Blood Urea Nitrogen 9 mg/dL (9-23); Calcium 8.4 mg/dL (8.3-10.6); Calcium (Corrected) 8.6 mg/dL (8.5-10.1); Carbon Dioxide 21.5 mMol/L (20.0-31.0); Chloride 88 mMol/L (98-107); Creatinine (Component) 0.8 mg/dL (0.6-1.3); Globulin 3.1 gm/dL (2.3-3.5); Glucose 122 mg/dL (74-106); Osmolality,Calculated 238 (275-295); Potassium 4.2 mMol/L (3.4-5.1); Total Protein 6.9 gm/dL (5.7-8.2); eGFR > 60 See Note
[2024-07-05 07:12] LABS: Sodium 118 mMol/L (136-145)
[2024-07-05 07:50] LABS: Sodium 118 mMol/L (136-145)
[2024-07-05] MEDS: PANTOPRAZOLE INJ 40 MG VIAL IV ×2 (08:44→20:46)
[2024-07-05] MEDS: Lisinopril 20 MG TABLET 40 MG PO (08:45)
[2024-07-05] MEDS: DILTIAZEM CD 120 MG CAPCR 240 MG PO (08:45)
[2024-07-05] MEDS: FOLIC ACID 1 MG TABLET PO ×2 (08:46→20:45)
[2024-07-05] MEDS: MULTIVITAMINS TABLET 1 TAB PO (08:46)
[2024-07-05] MEDS: THIAMINE 100 MG TABLET PO ×2 (08:46→20:45)
[2024-07-05] MEDS: SODIUM CHLORIDE 1 GM TABLET PO ×2 (08:46→20:45)
[2024-07-05] MEDS: NICOTINE PATCH 14 MG/24 HR PATCH.TD24 TOP (08:47)
[2024-07-05 09:48] LABS: Sodium 119 mMol/L (136-145)
--- NOTE | 2024-07-05 10:58 | PC.SS ---
Follow up note: Patient pending EGD and PT eval.
[2024-07-05 12:59] LABS: Sodium 119 mMol/L (136-145)
--- NOTE | 2024-07-05 13:11 | PD.RESPRO ---
Documentation for date of: 07/05/24 Senior resident attestation: The patient is a 62-year-old male with a past medical history of hypertension, hyperlipidemia, obesity, history of A-fib on Xarelto, who was admitted for severe symptomatic hyponatremia. Secondary to beer potomania. Problems: #Hyponatremia?serum sodium 109 on arrival, slowly improving, patient had altered mentation, requiring 3% hypertonic saline infusion after consulting with nephrology. Sodium continued to improve slowly, currently sodium improved to 124. Will discontinue hypertonic NS, continue with water restriction and salt tabs. #GI bleed?likely secondary to bleeding esophageal ulcers and severe duodenitis. On Protonix IV twice daily, octreotide drip discontinued, started on protein diet. #Atrial fibrillation?history of A-fib, [id number] score 3, on anticoagulation with Xarelto at home, Xarelto held due to GI bleed. Will have a risk-benefit discussion with the patient. #Alcohol abuse disorder?chronic alcohol for many years use following passing of his son, on [facility] protocol, recommend alcohol abstinence. On gabapentin 100 mg twice daily, Patient evaluated and examined at the bedside, plan of care discussed with rest of the team including my attending physician, except as noted. Quresh PGY2 Subjective Subjective Interval history: Overnight: Patient had 750 mL of coffee-ground emesis. Patient was started on octreotide drip, Protonix, ceftriaxone, GI consulted. Patient seen and examined at bedside. Patient resting comfortably, complains of lethargy. Denies shortness of breath, chest pain, headaches, fevers, chills, abdominal pain, nausea. Pending EGD. Sodium improved to 119, will continue to monitor. Exam Vital Signs Temp Pulse Resp BP Pulse Ox O2 Del Method 97.4 F 76 17 151/97 H 97 CPAP 07/05/24 08:00 07/05/24 08:45 07/05/24 08:00 07/05/24 08:45 07/05/24 08:00 07/05/24 08:00 Narrative Exam General: Awake. Morbidly obese HEENT: Normocephalic, atraumatic, mucous membranes moist. Heart: Irregular rate and rhythm, no murmurs. Lungs: Clear to auscultation with no wheezing or crackles. Abdomen: Soft, nondistended, nontender. Neurologic: Alert and oriented x3, no gross neurological deficit, and patient able to move all 4 extremities. Extremities: No edema. Skin: No rash or ecchymoses. Objective Labs 07/06/24 05:10 07/06/24 05:10 Labs: Laboratory Results - last 24 hr 07/04/24 07/04/24 07/04/24 08:30 13:55 15:09 WBC RBC Hgb Hct MCV MCH MCHC RDW Std Deviation Plt Count Neut % (Auto) Lymph % (Auto) [place] % (Auto) Eos % (Auto) Baso % (Auto) Neut # (Auto) Lymph # (Auto) [place] # (Auto) Eos # (Auto) Baso # (Auto) Immature Gran # (Auto) Absolute Nucleated RBC Immature Gran % Nucleated RBC % Sodium 116 L* 117 L* Potassium Chloride Carbon Dioxide Anion Gap BUN Creatinine Estim Creat Clear Calc eGFR BUN/Creatinine Ratio Glucose Calculated Osmolality Calcium Corrected Calcium Total Bilirubin AST ALT Alkaline Phosphatase Total Protein Albumin Globulin Albumin/Globulin Ratio Stl C. diff Tox B Gene Negative 07/04/24 07/04/24 07/04/24 17:25 19:53 20:55 WBC RBC Hgb 14.4 Hct 38.8 L MCV MCH MCHC RDW Std Deviation Plt Count Neut % (Auto) Lymph % (Auto) [place] % (Auto) Eos % (Auto) Baso % (Auto) Neut # (Auto) Lymph # (Auto) [place] # (Auto) Eos # (Auto) Baso # (Auto) Immature Gran # (Auto) Absolute Nucleated RBC Immature Gran % Nucleated RBC % Sodium 116 L* 117 L* 118 L* Potassium Chloride Carbon Dioxide Anion Gap BUN Creatinine Estim Creat Clear Calc eGFR BUN/Creatinine Ratio Glucose Calculated Osmolality Calcium Corrected Calcium Total Bilirubin AST ALT Alkaline Phosphatase Total Protein Albumin Globulin Albumin/Globulin Ratio Stl C. diff Tox B Gene 07/04/24 07/05/24 07/05/24 23:36 01:37 03:35 WBC RBC Hgb Hct MCV MCH MCHC RDW Std Deviation Plt Count Neut % (Auto) Lymph % (Auto) [place] % (Auto) Eos % (Auto) Baso % (Auto) Neut # (Auto) Lymph # (Auto) [place] # (Auto) Eos # (Auto) Baso # (Auto) Immature Gran # (Auto) Absolute Nucleated RBC Immature Gran % Nucleated RBC % Sodium 118 L* 118 L* 119 L* Potassium Chloride Carbon Dioxide Anion Gap BUN Creatinine Estim Creat Clear Calc eGFR BUN/Creatinine Ratio Glucose Calculated Osmolality Calcium Corrected Calcium Total Bilirubin AST ALT Alkaline Phosphatase Total Protein Albumin Globulin Albumin/Globulin Ratio Stl C. diff Tox B Gene 07/05/24 07/05/24 07/05/24 05:55 06:56 09:15 WBC 6.8 RBC 4.11 L Hgb 14.2 Hct 38.7 L MCV 94 MCH 34.5 MCHC 36.7 RDW Std Deviation 43.4 Plt Count 193 Neut % (Auto) 79 Lymph % (Auto) 9 L [place] % (Auto) 11 Eos % (Auto) 0 Baso % (Auto) 0 Neut # (Auto) 5.4 Lymph # (Auto) 0.6 L [place] # (Auto) 0.7 Eos # (Auto) 0.0 Baso # (Auto) 0.0 Immature Gran # (Auto) 0.04 H Absolute Nucleated RBC 0.00 Immature Gran % 1 H Nucleated RBC % 0 Sodium 118 L* 118 L* 119 L* Potassium 4.2 Chloride 88 L Carbon Dioxide 21.5 Anion Gap 9 BUN 9 Creatinine 0.8 Estim Creat Clear Calc 125.0 eGFR > 60 BUN/Creatinine Ratio 11 L Glucose 122 H Calculated Osmolality 238 L Calcium 8.4 Corrected Calcium 8.6 Total Bilirubin 1.7 H AST 116 H ALT 91 H Alkaline Phosphatase 87 Total Protein 6.9 Albumin 3.8 Globulin 3.1 Albumin/Globulin Ratio 1.2 Stl C. diff Tox B Gene 07/05/24 12:29 WBC RBC Hgb Hct MCV MCH MCHC RDW Std Deviation Plt Count Neut % (Auto) Lymph % (Auto) [place] % (Auto) Eos % (Auto) Baso % (Auto) Neut # (Auto) Lymph # (Auto) [place] # (Auto) Eos # (Auto) Baso # (Auto) Immature Gran # (Auto) Absolute Nucleated RBC Immature Gran % Nucleated RBC % Sodium 119 L* Potassium Chloride Carbon Dioxide Anion Gap BUN Creatinine Estim Creat Clear Calc eGFR BUN/Creatinine Ratio Glucose Calculated Osmolality Calcium Corrected Calcium Total Bilirubin AST ALT Alkaline Phosphatase Total Protein Albumin Globulin Albumin/Globulin Ratio Stl C. diff Tox B Gene Quality Measures Quality Measures VTE prophylaxis Advance care planning discussed with:: patient, spouse and child Assessment & Plan Assessment Current Active Medications: Generic Name Dose Route Start Last Admin Trade Name Freq PRN Reason Stop Dose Admin Acetaminophen 650 mg 07/01/24 20:04 Acetaminophen 325 Mg Tablet PO 07/31/24 20:03 Q6H PRN Fever >101.5 Diltiazem HCl 240 mg 07/02/24 09:00 07/05/24 08:45 Diltiazem Cd 120 Mg Capcr PO 08/01/24 08:59 240 mg QDAY ANTONY Administration Folic Acid 1 mg 07/01/24 21:00 07/05/24 08:46 Folic Acid 1 Mg Tablet PO 07/06/24 20:59 1 mg BID ANTONY Administration Sodium Chloride 500 ml/ IV 500 mls @ 15 mls/hr 07/04/24 13:34 07/04/24 14:44 Miscellaneous Supplies IV 07/05/24 22:53 15 mls/hr X1 ONE Administration Octreotide Acetate 1,000 mcg/ 102 mls @ 5.1 mls/hr 07/04/24 18:15 07/04/24 20:04 Sodium Chloride IV 07/09/24 18:14 50 mcg/hr .Q20H ANTONY 5.1 mls/hr Administration Protocol 50 MCG/HR Ceftriaxone Sodium/Dextrose 1 gm in 50 mls @ 100 mls/hr 07/04/24 18:15 07/04/24 19:02 Rocephin/D5w 1gm Iv Premix IV 07/11/24 18:14 100 mls/hr QDAY@1400 ANTONY Administration Lisinopril 40 mg 07/02/24 09:00 07/05/24 08:45 Lisinopril 20 Mg Tablet PO 08/01/24 08:59 40 mg QDAY ANTONY Administration Lorazepam 0.5 mg 07/01/24 20:16 07/03/24 15:54 Lorazepam 0.5 Mg Tablet PO 07/06/24 20:15 0.5 mg Q4HR PRN Administration CIWA Score 2-6 Lorazepam 1 mg 07/01/24 20:16 07/02/24 22:43 Lorazepam 0.5 Mg Tablet PO 07/06/24 20:15 1 mg Q4HR PRN Administration CIWA SCORE 7-11 Lorazepam 2 mg 07/01/24 20:16 Lorazepam 0.5 Mg Tablet PO 07/06/24 20:15 Q4HR PRN CIWA SCORE 12-15 Lorazepam 1 mg 07/01/24 20:16 Lorazepam 2 Mg/Ml Vial IV X1 PRN Breakthrough Agitation Multivitamins 1 tab 07/02/24 09:00 07/05/24 08:46 Multivitamins Tablet PO 08/01/24 08:59 1 tab QDAY ANTONY Administration Nicotine 14 mg 07/03/24 14:15 07/05/24 08:47 Nicotine Patch 14 Mg/24 Hr Patch.Td24 TOP 08/02/24 14:14 14 mg QDAY ANTONY Administration Pantoprazole Sodium 40 mg 07/04/24 21:00 07/05/24 08:44 Pantoprazole Inj 40 Mg Vial IV 08/03/24 20:59 40 mg BID ANTONY Administration Rivaroxaban 20 mg 07/02/24 17:30 07/04/24 16:36 Rivaroxaban 10 Mg Tablet PO 08/01/24 17:29 Not Given WSUPPER ANTONY Scopolamine 1 mg 07/04/24 16:00 07/04/24 16:47 Scopolamine 1 Mg Tdsy TOP 08/03/24 15:59 1 mg Q3D ANTONY Administration Sodium Chloride 1 gm 07/04/24 09:00 07/05/24 08:46 Sodium Chloride 1 Gm Tablet PO 08/03/24 08:59 1 gm BID ANTONY Administration Thiamine HCl 100 mg 07/01/24 21:00 07/05/24 08:46 Thiamine 100 Mg Tablet PO 07/06/24 20:59 100 mg BID ANTONY Administration Plan 68 y/o male with PMHx hypertension, hyperlipidemia, morbid obesity, A-fib (on Xarelto) who is admitted for acute on chronic severe hyponatremia. #Symptomatic Severe Hyponatremia likely 2/2 to beer potomania, acute (improving) Etiology likely 2/2 to beer potomania. Unlikely a chronic condition. Patient does have symptoms such as weakness and paresthesias in the lower extremities. No altered mentation. Normovolemic on exam, euvolemic labs, no acute neurologic symptoms, GCS 15. Pt is not altered at this point, AAOx3, however will still require frequent sodium checks. Patient sodium still significantly low despite several days of treatment. Initiating Hypertonic saline at 15 mL/h x 500 mL Sodium has improved to 119, will decrease frequency of sodium checks. -Hold HCTZ. -Free water restriction -Monitor serum sodium q6h -Pending central line placement -Salt tabs 1 g twice daily -Neurochecks -Seizure precautions -Nephrology consulted, appreciate recommendations #GI bleed Patient had episode of hematemesis with 750 mL of coffee-ground material. GI consulted, patient is on octreotide drip, Protonix, Rocephin. Patient made n.p.o., pending EGD. Hemoglobin remained stable. -Trend hemoglobin -EGD pending, follow-up -Ceftriaxone 1 g IV daily -Octreotide drip -Protonix 40 mg IV twice daily -Hold anticoagulation -GI consulted, appreciate recommendations #A-fib [id number]: 3 Rate: Controlled Rhythm: Regular at this point AC: Xarleto 20 Unsure pt's heart failure status No echo on file -Holding anticoagulation due to GI bleed -Keep magnesium and potasium above 2 and 4 respectively to avoid any cardiac arrythmias #Elevated transaminases #Prominent pancreatic head #Alcohol Use Disorder #Alcoholic neuoropathy Chronic alcohol use (12-pack/day x10 years), at risk for withdrawal, malnutrition, hepatic injury. Elevated AST/ALT (AST>ALT 2:1 in alcoholic fashion), mild hyperbilirubinemia, PT/INR slightly elevated Lives alone, limited social support. -Administer thiamine, folate, multivitamins -[facility] protocol -Trend LFTs -start gabapetin 100mg BID #Hypertension #Hyperlipidemia Chronic Not taking statin -Holding blood pressure medicines as blood pressures soft at this point #Hx of NISREEN #Hx of morbid obesity -Resumed CPAP HS #Nicotine dependence -Nicotine patch -Discussed smoking cessation -Consider Chantix outpatient DVT prophylaxis: Xarelto, held GI prophylaxis: Protonix Diet: N.p.o. pending EGD CODE STATUS: Full Lines: Peripheral IV Plan of care discussed with senior resident Dr. Curiel PGY?[address] Watson. Adrian Boone MD PGY?1 Attending Provider Attestation/Addendum I have discussed and was present for the essential components of the history, physical examination, diagnosis, and treatment plan with the resident. I agree with the patient's care as documented by the resident and amended herein by me. Benton Watson DO. Patient seen and evaluated this AM. No acute events overnight, vital signs stable, patient afebrile, sodium did improve to 118 this morning and has been stable at 119. Patient originally scheduled to have a central venous catheter placed today for frequent lab draws however we will hold off on that for now. We will continue hypertonic saline until this bag ends however will not continue and continue to monitor closely. Will continue salt tabs per nephrology recommendations however this will not be restarted until after the patient has his upper endoscopy today which is due to episodes of coffee-ground emesis occurring yesterday afternoon, approximately 750 mL of coffee-ground emesis reported by nursing staff. Patient will continue on octreotide drip considering long history of alcohol use, Protonix 40 mg IV twice daily and prophylactic ceftriaxone. The patient's hydrochlorothiazide also been stopped as this may have contributed to his hyponatremia however may be a component of beer [place] as well. Will continue to monitor closely, the patient is much more awake and alert today, hopefully he will continue to improve, appreciate all specialist recommendations. Although this document has been carefully reviewed, there may still be some phonetic and other typographical errors. These errors are purely grammatical due to imperfections in the software program and should not be construed in any way to compromise the substance of the patient's medical care during this visit.
[2024-07-05] MEDS: cefTRIAXone/D5w 1gm IV premix 1 GM/50 ML BAG IV (14:28)
[2024-07-05] MEDS: OCTREOTIDE ACET INJ 1,000 MCG in SODIUM CHLORIDE 0.9% 100 ML 5.1 MCG IV (14:30)
--- NOTE | 2024-07-05 14:46 | PC.SS ---
SS followed up with patient who resides out of town. Once discharged he plans on staying temporarily and have his niece or sister follow him home. He wants to d/c home with HH if possible. His niece states if he can pivot and sit upright in bed she can take him home. SS will follow up with patient again tomorrow. Patient does not have a p.c.p. so he will have to follow up with the [facility] and agreeable.
--- NOTE | 2024-07-05 16:52 | PD.RESPRO ---
Documentation for date of: 07/05/24 Subjective Subjective Interval history: Mr. Agrawal is a 68-year-old male with a past medical history of hypertension, hyperlipidemia, morbid obesity, and atrial fibrillation on Xarelto. He presented overnight with right foot weakness, numbness, and tingling. Initial labs revealed severe hyponatremia (Na 109). He also has a history of alcohol abuse, consuming approximately 12 beers daily for the past 10 years, with his last drink being yesterday. The patient denied chest pain, shortness of breath, vomiting, headache, or visual/auditory hallucinations. Home medications include hydrochlorothiazide (a potential contributor to hyponatremia), lisinopril, Cardizem, and Xarelto. ED Course: Hemodynamically stable, saturating well on room air. Labs: Hypochloremic hypoosmolar hyponatremia, mild transaminitis likely secondary to alcohol use. Head CT: Negative for acute hemorrhage, mass, or midline shift. Management: Received 500L normal saline in the ED and was admitted for further management of hyponatremia. 07/03/2024: Patient seen and examined at bedside. No acute overnight events. Sodium was checked every 3 hours, the last is 114, which is in acceptable range. D5W was stopped yesterday, continue fluid restriction 1000 mL daily, nephrology also is on board, urine electrolytes revealed dilute urine, sodium, potassium less than 10, chloride less than 20, however patient made total of 925 cc of urine output in 24-hour. CIWA was 0 overnight. Continue to monitor, continue fluid restriction, continue every 4 hours sodium check, will continue seizure precaution. We are agree with primary team management. 07/05/2024: Examined at bedside. No acute overnight events. Continued on sodium checks q.3h., hypertonic saline and salt tablets BID. Most recent sodium 119. Had 700 cc urine output, and about 1 L of emesis, he is on SCOPOLAMINE patch. Denies fever, chills, headaches, chest pain, sob, cough, GI or urinary symptoms. Will continue with fluid restrictions, 3% NS, and salt tablets for now. Will continue monitoring renal function and sodium Q4H. Exam Vital Signs Temp Pulse Resp BP Pulse Ox O2 Del Method 96.9 F 80 17 138/93 H 96 CPAP 07/05/24 16:00 07/05/24 16:00 07/05/24 16:00 07/05/24 16:00 07/05/24 16:00 07/05/24 16:00 Narrative Exam General: Awake. Morbidly obese HEENT: Normocephalic, atraumatic, mucous membranes moist. Heart: Irregular rate and rhythm, no murmurs. Lungs: Clear to auscultation with no wheezing or crackles. Abdomen: Soft, nondistended, nontender, positive bowel sounds. ?No guarding or rebound tenderness. Neurologic: Alert and oriented x3, no gross neurological deficit, and patient able to move all 4 extremities. Extremities: No edema. Skin: No rash or ecchymoses. Objective Labs 07/05/24 05:55 07/05/24 12:29 Labs: Laboratory Results - last 24 hr 07/04/24 07/04/24 07/04/24 17:25 19:53 20:55 WBC RBC Hgb 14.4 Hct 38.8 L MCV MCH MCHC RDW Std Deviation Plt Count Neut % (Auto) Lymph % (Auto) [place] % (Auto) Eos % (Auto) Baso % (Auto) Neut # (Auto) Lymph # (Auto) [place] # (Auto) Eos # (Auto) Baso # (Auto) Immature Gran # (Auto) Absolute Nucleated RBC Immature Gran % Nucleated RBC % Sodium 116 L* 117 L* 118 L* Potassium Chloride Carbon Dioxide Anion Gap BUN Creatinine Estim Creat Clear Calc eGFR BUN/Creatinine Ratio Glucose Calculated Osmolality Calcium Corrected Calcium Total Bilirubin AST ALT Alkaline Phosphatase Total Protein Albumin Globulin Albumin/Globulin Ratio 07/04/24 07/05/24 07/05/24 23:36 01:37 03:35 WBC RBC Hgb Hct MCV MCH MCHC RDW Std Deviation Plt Count Neut % (Auto) Lymph % (Auto) [place] % (Auto) Eos % (Auto) Baso % (Auto) Neut # (Auto) Lymph # (Auto) [place] # (Auto) Eos # (Auto) Baso # (Auto) Immature Gran # (Auto) Absolute Nucleated RBC Immature Gran % Nucleated RBC % Sodium 118 L* 118 L* 119 L* Potassium Chloride Carbon Dioxide Anion Gap BUN Creatinine Estim Creat Clear Calc eGFR BUN/Creatinine Ratio Glucose Calculated Osmolality Calcium Corrected Calcium Total Bilirubin AST ALT Alkaline Phosphatase Total Protein Albumin Globulin Albumin/Globulin Ratio 07/05/24 07/05/24 07/05/24 05:55 06:56 09:15 WBC 6.8 RBC 4.11 L Hgb 14.2 Hct 38.7 L MCV 94 MCH 34.5 MCHC 36.7 RDW Std Deviation 43.4 Plt Count 193 Neut % (Auto) 79 Lymph % (Auto) [address] [place] % (Auto) 11 Eos % (Auto) 0 Baso % (Auto) 0 Neut # (Auto) 5.4 Lymph # (Auto) 0.[address] [place] # (Auto) 0.7 Eos # (Auto) 0.0 Baso # (Auto) 0.0 Immature Gran # (Auto) 0.04 H Absolute Nucleated RBC 0.00 Immature Gran % 1 H Nucleated RBC % 0 Sodium 118 L* 118 L* 119 L* Potassium 4.2 Chloride 88 L Carbon Dioxide 21.5 Anion Gap 9 BUN 9 Creatinine 0.8 Estim Creat Clear Calc 125.0 eGFR > 60 BUN/Creatinine Ratio 11 L Glucose 122 H Calculated Osmolality 238 L Calcium 8.4 Corrected Calcium 8.6 Total Bilirubin 1.7 H AST 116 H ALT 91 H Alkaline Phosphatase 87 Total Protein 6.9 Albumin 3.8 Globulin 3.1 Albumin/Globulin Ratio 1.2 07/05/24 12:29 WBC RBC Hgb Hct MCV MCH MCHC RDW Std Deviation Plt Count Neut % (Auto) Lymph % (Auto) [place] % (Auto) Eos % (Auto) Baso % (Auto) Neut # (Auto) Lymph # (Auto) [place] # (Auto) Eos # (Auto) Baso # (Auto) Immature Gran # (Auto) Absolute Nucleated RBC Immature Gran % Nucleated RBC % Sodium 119 L* Potassium Chloride Carbon Dioxide Anion Gap BUN Creatinine Estim Creat Clear Calc eGFR BUN/Creatinine Ratio Glucose Calculated Osmolality Calcium Corrected Calcium Total Bilirubin AST ALT Alkaline Phosphatase Total Protein Albumin Globulin Albumin/Globulin Ratio Quality Measures Quality Measures VTE prophylaxis Advance care planning discussed with:: patient Assessment & Plan Assessment Current Active Medications: Generic Name Dose Route Start Last Admin Trade Name Freq PRN Reason Stop Dose Admin Acetaminophen 650 mg 07/01/24 20:04 Acetaminophen 325 Mg Tablet PO 07/31/24 20:03 Q6H PRN Fever >101.5 Diltiazem HCl 240 mg 07/02/24 09:00 07/05/24 08:45 Diltiazem Cd 120 Mg Capcr PO 08/01/24 08:59 240 mg QDAY ANTONY Administration Folic Acid 1 mg 07/01/24 21:00 07/05/24 08:46 Folic Acid 1 Mg Tablet PO 07/06/24 20:59 1 mg BID ANTONY Administration Sodium Chloride 500 ml/ IV 500 mls @ 15 mls/hr 07/04/24 13:34 07/04/24 14:44 Miscellaneous Supplies IV 07/05/24 22:53 15 mls/hr X1 ONE Administration Octreotide Acetate 1,000 mcg/ 102 mls @ 5.1 mls/hr 07/04/24 18:15 07/05/24 14:30 Sodium Chloride IV 07/09/24 18:14 50 mcg/hr .Q20H ANTONY 5.1 mls/hr Administration Protocol 50 MCG/HR Ceftriaxone Sodium/Dextrose 1 gm in 50 mls @ 100 mls/hr 07/04/24 18:15 07/05/24 14:28 Rocephin/D5w 1gm Iv Premix IV 07/11/24 18:14 100 mls/hr QDAY@1400 ANTONY Administration Lisinopril 40 mg 07/02/24 09:00 07/05/24 08:45 Lisinopril 20 Mg Tablet PO 08/01/24 08:59 40 mg QDAY ANTONY Administration Lorazepam 0.5 mg 07/01/24 20:16 07/03/24 15:54 Lorazepam 0.5 Mg Tablet PO 07/06/24 20:15 0.5 mg Q4HR PRN Administration CIWA Score 2-6 Lorazepam 1 mg 07/01/24 20:16 07/02/24 22:43 Lorazepam 0.5 Mg Tablet PO 07/06/24 20:15 1 mg Q4HR PRN Administration CIWA SCORE 7-11 Lorazepam 2 mg 07/01/24 20:16 Lorazepam 0.5 Mg Tablet PO 07/06/24 20:15 Q4HR PRN CIWA SCORE 12-15 Lorazepam 1 mg 07/01/24 20:16 Lorazepam 2 Mg/Ml Vial IV X1 PRN Breakthrough Agitation Multivitamins 1 tab 07/02/24 09:00 07/05/24 08:46 Multivitamins Tablet PO 08/01/24 08:59 1 tab QDAY ANTONY Administration Nicotine 14 mg 07/03/24 14:15 07/05/24 08:47 Nicotine Patch 14 Mg/24 Hr Patch.Td24 TOP 08/02/24 14:14 14 mg QDAY ANTONY Administration Pantoprazole Sodium 40 mg 07/04/24 21:00 07/05/24 08:44 Pantoprazole Inj 40 Mg Vial IV 08/03/24 20:59 40 mg BID ANTONY Administration Rivaroxaban 20 mg 07/02/24 17:30 07/04/24 16:36 Rivaroxaban 10 Mg Tablet PO 08/01/24 17:29 Not Given WSUPPER ANTONY Scopolamine 1 mg 07/04/24 16:00 07/04/24 16:47 Scopolamine 1 Mg Tdsy TOP 08/03/24 15:59 1 mg Q3D ANTONY Administration Sodium Chloride 1 gm 07/04/24 09:00 07/05/24 08:46 Sodium Chloride 1 Gm Tablet PO 08/03/24 08:59 1 gm BID ANTONY Administration Thiamine HCl 100 mg 07/01/24 21:00 07/05/24 08:46 Thiamine 100 Mg Tablet PO 07/06/24 20:59 100 mg BID ANTONY Administration Plan 68-year-old male with past medical history of morbid obesity, hypertension, hyperlipidemia, atrial fibrillation on Xarelto, chronic alcoholism presented to the hospital with chief complaints of weakness in the lower extremities and having multiple falls since 3 days and admitted for hyponatremia Hyponatremia Hypochloremia Likely beer potomania on admission in the setting of chronic alcoholism, likely could be having mild chronic hyponatremia. History of alcoholism and reports consuming 12?13 beers daily and minimal food intake. On home HYDROCHLOROTHIAZIDE for 10 years. Presented with bilateral lower extremity weakness and multiple falls. He denies fever, nausea, vomiting or diarrhea. Admission sodium 109, osmolality 218. TSH, free T4 and GLUCOSE were WNL. Continued on 3% hypertonic saline, salt tablets BID, and fluid restrictions. Sodium improved to 118. Goal correction no more than 8-10 mEq in 24 hours. ? Continue fluid restriction to 1500 cc daily ? Continue 3% hypertonic saline ? Continue salt tablets BID ? Continue sodium checks q.4h. ? Renally dose meds, avoid overdiuresis and NEPHROTOXINS ? Daily CMP Acute on Chronic severe Hyponatremia A-fib Elevated transaminases Prominent pancreatic head Alcohol Use Disorder Hypertension Hyperlipidemia Hx of NISREEN Hx of morbid obesity Nicotine dependence Managed by primary team. Thank you for allowing us to involved in the care of the patient. Patient case was discussed with attending, Dr. Campbell. Charo Cunningham DO PGYI Attending Provider Attestation/Addendum Patient seen and examined with resident physician Dr. Mancilla. Note reviewed, agree with findings and recommendations. Patient admitted with symptomatic hyponatremia. Initially thought related to beer potomania. However during the hospital course noted to have significant coffee-ground emesis, black stools. Dr. Hernandez was consulted. Currently on IV octreotide. Last evening patient was started on 3% hypertonic saline. Sodium improved from 114-119. No repeat sodium check noted. Requested lab draw. Will monitor closely.
[2024-07-05 23:19] LABS: Sodium 123 mMol/L (136-145)
[2024-07-06] VITALS (10 sets, daily range): BP systolic 135–158; BP diastolic 90–116; PULSE 60–90; RESP 15–20; TEMP 36.1–36.6; O2SAT 94–99
--- NOTE | 2024-07-06 03:50 | PC.NURSE ---
[facility]24 from 0200 to 0350.
[2024-07-06 05:59] LABS: Basophils # (Auto) 0.1 Thou/mm3 (0.0-0.2); Basophils % (Auto) 1 % (0-2.5); Eosinophils # (Auto) 0.2 Thou/mm3 (0.0-0.5); Eosinophils % (Auto) 3 % (0-10); Hematocrit 37.2 % (41.0-53.0); Hemoglobin 13.5 g/dL (13.5-16.0); Immature Granulocytes % (Auto) 1 % (0-0); Immature Granulocytes Auto 0.03 Thou/mm3 (0.00-0.00); Lymphocytes # (Auto) 0.6 Thou/mm3 (1.0-4.8); Lymphocytes % (Auto) 11 % (10-50); Mean Corpuscular HGB Conc 36.3 g/dl (31.0-37.0); Mean Corpuscular Hemoglobin 34.5 pg (25.0-35.0); Mean Corpuscular Volume 95 fL (80-100); Monocytes # (Auto) 0.7 Thou/mm3 (0.0-0.8); Monocytes % (Auto) 12 % (0-12); Neutrophils % (Auto) 73 % (37-80); Nucleated Red Blood Cell % 0 /100 WBC (0); Platelet Count 187 Thou/mm3 (140-440); RDW Standard Deviation 43.9 fL (35.1-43.9); Red Blood Count 3.91 Miln/mm3 (4.50-5.90); White Blood Count 5.5 Thou/mm3 (3.8-10.6)
[2024-07-06 07:44] LABS: Alanine Aminotransferase 129 U/L (10-49); Albumin, Serum 3.8 gm/dL (3.4-4.8); Albumin/Globulin Ratio 1.2 (1.2-2.2); Alkaline Phosphatase 82 U/L (46-116); Anion Gap 9 (7-16); Aspartate Amino Transferase 169 U/L (0-34); BUN/Creatinine Ratio 11 Ratio (12-20); Bilirubin,Total 1.4 mg/dL (0.3-1.2); Blood Urea Nitrogen 9 mg/dL (9-23); Calcium 8.7 mg/dL (8.3-10.6); Calcium (Corrected) 8.9 mg/dL (8.5-10.1); Carbon Dioxide 23.1 mMol/L (20.0-31.0); Chloride 92 mMol/L (98-107); Creatinine (Component) 0.8 mg/dL (0.6-1.3); Globulin 3.1 gm/dL (2.3-3.5); Glucose 115 mg/dL (74-106); Osmolality,Calculated 249 (275-295); Potassium 4.1 mMol/L (3.4-5.1); Sodium 124 mMol/L (136-145); Total Protein 6.9 gm/dL (5.7-8.2); eGFR > 60 See Note
[2024-07-06] MEDS: PANTOPRAZOLE INJ 40 MG VIAL IV ×2 (08:40→21:29)
[2024-07-06] MEDS: NICOTINE PATCH 14 MG/24 HR PATCH.TD24 TOP (08:41)
[2024-07-06] MEDS: SODIUM CHLORIDE 1 GM TABLET PO ×2 (08:42→21:28)
[2024-07-06] MEDS: MULTIVITAMINS TABLET 1 TAB PO (08:42)
[2024-07-06] MEDS: THIAMINE 100 MG TABLET PO (08:42)
[2024-07-06] MEDS: DILTIAZEM CD 120 MG CAPCR 240 MG PO (08:43)
[2024-07-06] MEDS: Lisinopril 20 MG TABLET 40 MG PO ×2 (08:43→08:55)
[2024-07-06] MEDS: FOLIC ACID 1 MG TABLET PO (08:43)
[2024-07-06] MEDS: DILTIAZEM CD 120 MG CAPCR 480 MG PO (08:55)
[2024-07-06 11:05] LABS: Sodium 123 mMol/L (136-145)
--- NOTE | 2024-07-06 13:27 | ESPR_ITS ---
Documentation for date of: 07/06/24 Senior resident attestation: The patient is a 62-year-old male with a past medical history of hypertension, hyperlipidemia, obesity, history of A-fib on Xarelto, who was admitted for severe symptomatic hyponatremia. Secondary to beer potomania. Problems: #Hyponatremia?serum sodium 109 on arrival, slowly improving, patient had altered mentation, requiring 3% hypertonic saline infusion after consulting with nephrology. Sodium continued to improve slowly, currently sodium improved to 123. Will discontinue hypertonic NS, continue with water restriction and salt tabs. Sodium continues to stay 123, anticipate improvement over time with conitnued fluid and alcohol restriction, #GI bleed?likely secondary to bleeding esophageal ulcers and severe duodenitis. On Protonix IV twice daily, octreotide drip discontinued, started on protein diet. #Atrial fibrillation?history of A-fib, [id number] score 3, on anticoagulation with Xarelto at home, Xarelto was held due to GI bleed. Will have a risk- benefit discussion with the patient. Per GI can resume Xarelto . #Alcohol abuse disorder?chronic alcohol for many years use following passing of his son, on CIND protocol, recommend alcohol abstinence. On gabapentin 100 mg twice daily, Patient evaluated and examined at the bedside, plan of care discussed with rest of the team including my attending physician, except as noted. Quresh PGY2 Subjective Subjective Interval history: No overnight events. Patient seen examined at bedside, resting comfortably. Patient complains of mild sore throat following EGD. Patient denies fever, chills, shortness of breath, headache, nausea, vomiting, headaches. Symptoms significantly improved, continue to monitor patient until sodium level reaches 126 as per nephrology recommendations. EGD showed multiple linear esophageal ulcers oozing blood, continue Protonix. Exam Vital Signs Temp Pulse Resp BP Pulse Ox O2 Del Method O2 Flow Rate 97.0 F 60 19 158/94 H 99 Room Air 3 07/06/24 08:00 07/06/24 08:55 07/06/24 08:00 07/06/24 08:55 07/06/24 08:00 07/06/24 08:00 07/05/24 18:40 Narrative Exam General: Awake. Morbidly obese HEENT: Normocephalic, atraumatic, mucous membranes moist. Heart: Irregular rate and rhythm, no murmurs. Lungs: Clear to auscultation with no wheezing or crackles. Abdomen: Soft, nondistended, nontender. Neurologic: Alert and oriented x3, no gross neurological deficit, and patient able to move all 4 extremities. Extremities: No edema. Skin: No rash or ecchymoses. Objective Labs 07/06/24 05:10 07/07/24 02:36 Labs: Laboratory Results - last 24 hr 07/05/24 07/06/24 07/06/24 22:42 05:10 10:35 WBC 5.5 RBC 3.91 L Hgb 13.5 Hct 37.2 L MCV 95 MCH 34.5 MCHC 36.3 RDW Std Deviation 43.9 Plt Count 187 Neut % (Auto) 73 Lymph % (Auto) 11 [place] % (Auto) 12 Eos % (Auto) 3 Baso % (Auto) 1 Neut # (Auto) 4.0 Lymph # (Auto) 0.6 L [place] # (Auto) 0.7 Eos # (Auto) 0.2 Baso # (Auto) 0.1 Immature Gran # (Auto) 0.03 H Absolute Nucleated RBC 0.00 Immature Gran % 1 H Nucleated RBC % 0 Sodium 123 L 124 L 123 L Potassium 4.1 Chloride 92 L Carbon Dioxide 23.1 Anion Gap 9 BUN 9 Creatinine 0.8 Estim Creat Clear Calc 125.0 eGFR > 60 BUN/Creatinine Ratio 11 L Glucose 115 H Calculated Osmolality 249 L Calcium 8.7 Corrected Calcium 8.9 Total Bilirubin 1.4 H AST 169 H ALT 129 H Alkaline Phosphatase 82 Total Protein 6.9 Albumin 3.8 Globulin 3.1 Albumin/Globulin Ratio 1.2 Quality Measures Quality Measures VTE prophylaxis Advance care planning discussed with:: patient Assessment & Plan Assessment Current Active Medications: Generic Name Dose Route Start Last Admin Trade Name Freq PRN Reason Stop Dose Admin Acetaminophen 650 mg 07/01/24 20:04 Acetaminophen 325 Mg Tablet PO 07/31/24 20:03 Q6H PRN Fever >101.5 Diltiazem HCl 480 mg 07/06/24 09:00 07/06/24 08:55 Diltiazem Cd 120 Mg Capcr PO 08/05/24 08:59 480 mg Q24H ANTONY Administration Folic Acid 1 mg 07/01/24 21:00 07/06/24 08:43 Folic Acid 1 Mg Tablet PO 07/06/24 20:59 1 mg BID ANTONY Administration Lisinopril 40 mg 07/06/24 09:00 07/06/24 08:55 Lisinopril 20 Mg Tablet PO 08/05/24 08:59 40 mg DAILY ANTONY Administration Lorazepam 0.5 mg 07/01/24 20:16 07/03/24 15:54 Lorazepam 0.5 Mg Tablet PO 07/06/24 20:15 0.5 mg Q4HR PRN Administration CIWA Score 2-6 Lorazepam 1 mg 07/01/24 20:16 07/02/24 22:43 Lorazepam 0.5 Mg Tablet PO 07/06/24 20:15 1 mg Q4HR PRN Administration CIWA SCORE 7-11 Lorazepam 2 mg 07/01/24 20:16 Lorazepam 0.5 Mg Tablet PO 07/06/24 20:15 Q4HR PRN CIWA SCORE 12-15 Lorazepam 1 mg 07/01/24 20:16 Lorazepam 2 Mg/Ml Vial IV X1 PRN Breakthrough Agitation Multivitamins 1 tab 07/02/24 09:00 07/06/24 08:42 Multivitamins Tablet PO 08/01/24 08:59 1 tab QDAY ANTONY Administration Nicotine 14 mg 07/03/24 14:15 07/06/24 08:41 Nicotine Patch 14 Mg/24 Hr Patch.Td24 TOP 08/02/24 14:14 14 mg QDAY ANTONY Administration Pantoprazole Sodium 40 mg 07/04/24 21:00 07/06/24 08:40 Pantoprazole Inj 40 Mg Vial IV 08/03/24 20:59 40 mg BID ANTONY Administration Rivaroxaban 20 mg 07/02/24 17:30 07/04/24 16:36 Rivaroxaban 10 Mg Tablet PO 08/01/24 17:29 Not Given WSUPPER ANTONY Scopolamine 1 mg 07/04/24 16:00 07/04/24 16:47 Scopolamine 1 Mg Tdsy TOP 08/03/24 15:59 1 mg Q3D ANTONY Administration Sodium Chloride 1 gm 07/04/24 09:00 07/06/24 08:42 Sodium Chloride 1 Gm Tablet PO 08/03/24 08:59 1 gm BID ANTONY Administration Thiamine HCl 100 mg 07/01/24 21:00 07/06/24 08:42 Thiamine 100 Mg Tablet PO 07/06/24 20:59 100 mg BID ANTONY Administration Plan 68 y/o male with PMHx hypertension, hyperlipidemia, morbid obesity, A-fib (on Xarelto) who is admitted for acute on chronic severe hyponatremia. #Symptomatic Severe Hyponatremia likely 2/2 to beer potomania, acute (improving) Etiology likely 2/2 to beer potomania. Unlikely a chronic condition. Patient does have symptoms such as weakness and paresthesias in the lower extremities. No altered mentation. Normovolemic on exam, euvolemic labs, no acute neurologic symptoms, GCS 15. Pt is not altered at this point, AAOx3, however will still require frequent sodium checks. Patient sodium still significantly low despite several days of treatment. Initiating Hypertonic saline at 15 mL/h x 500 mL Sodium has improved to 119, will decrease frequency of sodium checks. Central line was not placed, leading to unnecessary has patient sodium improved. Patient sodium increased to 124, remains asymptomatic. Will continue to monitor until reaching goal of 126 as per nephrology recommendations. -Hold HCTZ. -Free water restriction -Salt tabs 1 g twice daily -Seizure precautions -Nephrology consulted, appreciate recommendations #Upper GI bleed Patient had episode of hematemesis with 750 mL of coffee-ground material. GI consulted, patient is on octreotide drip, Protonix, Rocephin. Patient made n.p.o., pending EGD. Hemoglobin remained stable. Patient received EGD which showed multiple linear esophageal ulcers, oozing blood. Octreotide drip and Rocephin stopped, patient placed on peptic ulcer diet. GI cleared to resume home anticoagulation. -Trend hemoglobin -Protonix 40 mg IV twice daily -GI consulted, appreciate recommendations #A-fib [id number]: 3 Rate: Controlled Rhythm: Regular at this point AC: Xarleto 20 Unsure pt's heart failure status No echo on file -Resuming patient on anticoag with GI recommendations -Keep magnesium and potasium above 2 and 4 respectively to avoid any cardiac arrythmias -Resume home meds: Diltiazem for 480 mg p.o. daily #Elevated transaminases #Prominent pancreatic head #Alcohol Use Disorder #Alcoholic neuoropathy Chronic alcohol use (12-pack/day x10 years), at risk for withdrawal, malnutrition, hepatic injury. Elevated AST/ALT (AST>ALT 2:1 in alcoholic fashion), mild hyperbilirubinemia, PT/INR slightly elevated Lives alone, limited social support. -Administer thiamine, folate, multivitamins -[facility] protocol -Trend LFTs -start gabapetin 100mg BID #Hypertension #Hyperlipidemia Chronic Not taking statin -Holding blood pressure medicines as blood pressures soft at this point #Hx of NISREEN #Hx of morbid obesity -Resumed CPAP HS #Nicotine dependence -Nicotine patch -Discussed smoking cessation -Consider Chantix outpatient DVT prophylaxis: Xarelto GI prophylaxis: Protonix Diet: Peptic ulcer diet CODE STATUS: Full Lines: Peripheral IV Plan of care discussed with senior resident Dr. Curiel PGY?[address] Watson. Adrian Boone MD PGY?1 Attending Provider Attestation/Addendum I have discussed and was present for the essential components of the history, physical examination, diagnosis, and treatment plan with the resident. I agree with the patient's care as documented by the resident and amended herein by me. Benton Watson DO. Although this document has been carefully reviewed, there may still be some phonetic and other typographical errors. These errors are purely grammatical due to imperfections in the software program and should not be construed in any way to compromise the substance of the patient's medical care during this visit.
--- NOTE | 2024-07-06 14:17 | ESPR_ITS ---
Documentation for date of: 07/06/24 Subjective Subjective Interval history: Mr. Agrawal is a 68-year-old male with a past medical history of hypertension, hyperlipidemia, morbid obesity, and atrial fibrillation on Xarelto. He presented overnight with right foot weakness, numbness, and tingling. Initial labs revealed severe hyponatremia (Na 109). He also has a history of alcohol abuse, consuming approximately 12 beers daily for the past 10 years, with his last drink being yesterday. The patient denied chest pain, shortness of breath, vomiting, headache, or visual/auditory hallucinations. Home medications include hydrochlorothiazide (a potential contributor to hyponatremia), lisinopril, Cardizem, and Xarelto. ED Course: Hemodynamically stable, saturating well on room air. Labs: Hypochloremic hypoosmolar hyponatremia, mild transaminitis likely secondary to alcohol use. Head CT: Negative for acute hemorrhage, mass, or midline shift. Management: Received 500L normal saline in the ED and was admitted for further management of hyponatremia. 07/03/2024: Patient seen and examined at bedside. No acute overnight events. Sodium was checked every 3 hours, the last is 114, which is in acceptable range. D5W was stopped yesterday, continue fluid restriction 1000 mL daily, nephrology also is on board, urine electrolytes revealed dilute urine, sodium, potassium less than 10, chloride less than 20, however patient made total of 925 cc of urine output in 24-hour. CIWA was 0 overnight. Continue to monitor, continue fluid restriction, continue every 4 hours sodium check, will continue seizure precaution. We are agree with primary team management. 07/05/2024: Examined at bedside. No acute overnight events. Continued on sodium checks q.3h., hypertonic saline and salt tablets BID. Most recent sodium 119. Had 700 cc urine output, and about 1 L of emesis, he is on SCOPOLAMINE patch. Denies fever, chills, headaches, chest pain, sob, cough, GI or urinary symptoms. Will continue with fluid restrictions, 3% NS, and salt tablets for now. Will continue monitoring renal function and sodium Q4H. 07/06/2024: Examined at bedside. No acute overnight events. Sodium 123 today. Denies new symptoms or worsening of symptoms. Denies fever, chills, headaches, chest pain, sob, cough, GI or urinary symptoms. Will d/c hypertonic saline and continue with salt tabs TID. Continue sodium checks Q4H. Exam Vital Signs Temp Pulse Resp BP Pulse Ox O2 Del Method O2 Flow Rate 97.0 F 60 19 158/94 H 99 Room Air 3 07/06/24 08:00 07/06/24 08:55 07/06/24 08:00 07/06/24 08:55 07/06/24 08:00 07/06/24 08:00 07/05/24 18:40 Narrative Exam General: Awake. Morbidly obese HEENT: Normocephalic, atraumatic, mucous membranes moist. Heart: Irregular rate and rhythm, no murmurs. Lungs: Clear to auscultation with no wheezing or crackles. Abdomen: Soft, nondistended, nontender, positive bowel sounds. ?No guarding or rebound tenderness. Neurologic: Alert and oriented x3, no gross neurological deficit, and patient able to move all 4 extremities. Extremities: No edema. Skin: No rash or ecchymoses. Objective Labs 07/07/24 06:30 07/07/24 02:36 Labs: Laboratory Results - last 24 hr 07/05/24 07/06/24 07/06/24 22:42 05:10 10:35 WBC 5.5 RBC 3.91 L Hgb 13.5 Hct 37.2 L MCV 95 MCH 34.5 MCHC 36.3 RDW Std Deviation 43.9 Plt Count 187 Neut % (Auto) 73 Lymph % (Auto) 11 [place] % (Auto) 12 Eos % (Auto) 3 Baso % (Auto) 1 Neut # (Auto) 4.0 Lymph # (Auto) 0.6 L [place] # (Auto) 0.7 Eos # (Auto) 0.2 Baso # (Auto) 0.1 Immature Gran # (Auto) 0.03 H Absolute Nucleated RBC 0.00 Immature Gran % 1 H Nucleated RBC % 0 Sodium 123 L 124 L 123 L Potassium 4.1 Chloride 92 L Carbon Dioxide 23.1 Anion Gap 9 BUN 9 Creatinine 0.8 Estim Creat Clear Calc 125.0 eGFR > 60 BUN/Creatinine Ratio 11 L Glucose 115 H Calculated Osmolality 249 L Calcium 8.7 Corrected Calcium 8.9 Total Bilirubin 1.4 H AST 169 H ALT 129 H Alkaline Phosphatase 82 Total Protein 6.9 Albumin 3.8 Globulin 3.1 Albumin/Globulin Ratio 1.2 Quality Measures Quality Measures VTE prophylaxis Advance care planning discussed with:: patient Assessment & Plan Assessment Current Active Medications: Generic Name Dose Route Start Last Admin Trade Name Freq PRN Reason Stop Dose Admin Acetaminophen 650 mg 07/01/24 20:04 Acetaminophen 325 Mg Tablet PO 07/31/24 20:03 Q6H PRN Fever >101.5 Diltiazem HCl 480 mg 07/06/24 09:00 07/06/24 08:55 Diltiazem Cd 120 Mg Capcr PO 08/05/24 08:59 480 mg Q24H ANTONY Administration Folic Acid 1 mg 07/01/24 21:00 07/06/24 08:43 Folic Acid 1 Mg Tablet PO 07/06/24 20:59 1 mg BID ANTONY Administration Lisinopril 40 mg 07/06/24 09:00 07/06/24 08:55 Lisinopril 20 Mg Tablet PO 08/05/24 08:59 40 mg DAILY ANTONY Administration Lorazepam 0.5 mg 07/01/24 20:16 07/03/24 15:54 Lorazepam 0.5 Mg Tablet PO 07/06/24 20:15 0.5 mg Q4HR PRN Administration CIWA Score 2-6 Lorazepam 1 mg 07/01/24 20:16 07/02/24 22:43 Lorazepam 0.5 Mg Tablet PO 07/06/24 20:15 1 mg Q4HR PRN Administration CIWA SCORE 7-11 Lorazepam 2 mg 07/01/24 20:16 Lorazepam 0.5 Mg Tablet PO 07/06/24 20:15 Q4HR PRN CIWA SCORE 12-15 Lorazepam 1 mg 07/01/24 20:16 Lorazepam 2 Mg/Ml Vial IV X1 PRN Breakthrough Agitation Multivitamins 1 tab 07/02/24 09:00 07/06/24 08:42 Multivitamins Tablet PO 08/01/24 08:59 1 tab QDAY ANTONY Administration Nicotine 14 mg 07/03/24 14:15 07/06/24 08:41 Nicotine Patch 14 Mg/24 Hr Patch.Td24 TOP 08/02/24 14:14 14 mg QDAY ANTONY Administration Pantoprazole Sodium 40 mg 07/04/24 21:00 07/06/24 08:40 Pantoprazole Inj 40 Mg Vial IV 08/03/24 20:59 40 mg BID ANTONY Administration Rivaroxaban 20 mg 07/02/24 17:30 07/04/24 16:36 Rivaroxaban 10 Mg Tablet PO 08/01/24 17:29 Not Given WSUPPER ANTONY Scopolamine 1 mg 07/04/24 16:00 07/04/24 16:47 Scopolamine 1 Mg Tdsy TOP 08/03/24 15:59 1 mg Q3D ANTONY Administration Sodium Chloride 1 gm 07/04/24 09:00 07/06/24 08:42 Sodium Chloride 1 Gm Tablet PO 08/03/24 08:59 1 gm BID ANTONY Administration Thiamine HCl 100 mg 07/01/24 21:00 07/06/24 08:42 Thiamine 100 Mg Tablet PO 07/06/24 20:59 100 mg BID ANTONY Administration Plan 68-year-old male with past medical history of morbid obesity, hypertension, hyperlipidemia, atrial fibrillation on Xarelto, chronic alcoholism presented to the hospital with chief complaints of weakness in the lower extremities and having multiple falls since 3 days and admitted for hyponatremia Hyponatremia Hypochloremia Likely beer potomania on admission in the setting of chronic alcoholism, likely could be having mild chronic hyponatremia. History of alcoholism and reports consuming 12?13 beers daily and minimal food intake. On home HYDROCHLOROTHIAZIDE for 10 years. Presented with bilateral lower extremity weakness and multiple falls. He denies fever, nausea, vomiting or diarrhea. Admission sodium 109, osmolality 218. TSH, free T4 and GLUCOSE were WNL. Continued on 3% hypertonic saline, salt tablets BID, and fluid restrictions. Sodium improved to 123. Goal correction no more than 8-10 mEq in 24 hours. ? Continue fluid restriction to 1500 cc daily ? Discontinued 3% hypertonic saline ? Continue salt tablets TID ? Continue sodium checks q.4h. ? Renally dose meds, avoid overdiuresis and NEPHROTOXINS ? Daily CMP Acute on Chronic severe Hyponatremia A-fib Elevated transaminases Prominent pancreatic head Alcohol Use Disorder Hypertension Hyperlipidemia Hx of NISREEN Hx of morbid obesity Nicotine dependence Managed by primary team. Thank you for allowing us to involved in the care of the patient. Patient case was discussed with attending, Dr. Campbell. Charo Cunningham DO PGYI Attending Provider Attestation/Addendum Patient seen and examined with resident physician Dr. Mancilla. Note reviewed, agree with findings and recommendations. Patient sodium dropped again to 123. Patient completely alert awake and oriented. No need for 3% hypertonic saline. Suspect underlying SIADH. Increase salt tablets to 3 times daily. Continue fluid restriction.
[2024-07-06 16:01] LABS: Sodium 124 mMol/L (136-145)
[2024-07-06] MEDS: RIVAROXABAN 10 MG TABLET 20 MG PO (17:27)
[2024-07-06] MEDS: hydrALAZINE INJ 20 MG/ML VIAL 10 MG IV (17:42)
[2024-07-06 19:21] LABS: Sodium 123 mMol/L (136-145)
--- NOTE | 2024-07-06 21:10 | PD.IMPROG ---
Documentation for date of: 07/06/24 Subjective Subjective Interval history: Patient evaluated hemoglobin hematocrit 13.5 and 37.2 Upper endoscopy showed ulceration of the esophagus and duodenitis along with gastritis Exam Vital Signs Temp Pulse Resp BP Pulse Ox O2 Del Method O2 Flow Rate 97.0 F 79 20 135/90 H 95 CPAP 3 07/06/24 20:00 07/06/24 20:00 07/06/24 20:00 07/06/24 20:00 07/06/24 20:00 07/06/24 20:00 07/05/24 18:40 Objective Labs 07/06/24 05:10 07/06/24 18:51 Labs: Laboratory Results - last 24 hr 07/05/24 07/06/24 07/06/24 22:42 05:10 10:35 WBC 5.5 RBC 3.91 L Hgb 13.5 Hct 37.2 L MCV 95 MCH 34.5 MCHC 36.3 RDW Std Deviation 43.9 Plt Count 187 Neut % (Auto) 73 Lymph % (Auto) 11 [place] % (Auto) 12 Eos % (Auto) 3 Baso % (Auto) 1 Neut # (Auto) 4.0 Lymph # (Auto) 0.6 L [place] # (Auto) 0.7 Eos # (Auto) 0.2 Baso # (Auto) 0.1 Immature Gran # (Auto) 0.03 H Absolute Nucleated RBC 0.00 Immature Gran % 1 H Nucleated RBC % 0 Sodium 123 L 124 L 123 L Potassium 4.1 Chloride 92 L Carbon Dioxide 23.1 Anion Gap 9 BUN 9 Creatinine 0.8 Estim Creat Clear Calc 125.0 eGFR > 60 BUN/Creatinine Ratio 11 L Glucose 115 H Calculated Osmolality 249 L Calcium 8.7 Corrected Calcium 8.9 Total Bilirubin 1.4 H AST 169 H ALT 129 H Alkaline Phosphatase 82 Total Protein 6.9 Albumin 3.8 Globulin 3.1 Albumin/Globulin Ratio 1.2 07/06/24 07/06/24 15:26 18:51 WBC RBC Hgb Hct MCV MCH MCHC RDW Std Deviation Plt Count Neut % (Auto) Lymph % (Auto) [place] % (Auto) Eos % (Auto) Baso % (Auto) Neut # (Auto) Lymph # (Auto) [place] # (Auto) Eos # (Auto) Baso # (Auto) Immature Gran # (Auto) Absolute Nucleated RBC Immature Gran % Nucleated RBC % Sodium 124 L 123 L Potassium Chloride Carbon Dioxide Anion Gap BUN Creatinine Estim Creat Clear Calc eGFR BUN/Creatinine Ratio Glucose Calculated Osmolality Calcium Corrected Calcium Total Bilirubin AST ALT Alkaline Phosphatase Total Protein Albumin Globulin Albumin/Globulin Ratio Impressions Impression: Ulceration esophagus Gastritis Esophagitis Continue current management Assessment & Plan A&P Narrative # Hematemesis in the setting of chronic liver disease secondary to alcoholism Plan Agree with octreotide infusion and IV Protonix Consent obtained for fiberoptic esophagogastroduodenoscopy with possible therapeutic intervention possible biopsy under intravenous moderate sedation N.p.o. 6 AM tomorrow Serial CBC Other medical problems include # Hyponatremia # Chronic liver disease secondary to alcohol # Right foot pain # Fatty liver with hepatomegaly Thank you very much for the opportunity to participate in care of this patient Time Spent With Patient Time: Total time spent is greater than 50% in coordination of care (as documented) at patient's floor/unit and/or counseling patient:
[2024-07-06 22:44] LABS: Sodium 123 mMol/L (136-145)
[2024-07-07] VITALS (8 sets, daily range): BP systolic 134–164; BP diastolic 89–100; PULSE 66–97; RESP 15–20; TEMP 35.9–36.6; O2SAT 95–97
[2024-07-07 03:03] LABS: Sodium 123 mMol/L (136-145)
[2024-07-07] MEDS: SODIUM CHLORIDE 1 GM TABLET PO ×3 (05:09→21:14)
[2024-07-07 06:41] LABS: Basophils # (Auto) 0.1 Thou/mm3 (0.0-0.2); Basophils % (Auto) 1 % (0-2.5); Eosinophils # (Auto) 0.2 Thou/mm3 (0.0-0.5); Eosinophils % (Auto) 3 % (0-10); Hematocrit 38.6 % (41.0-53.0); Immature Granulocytes % (Auto) 0 % (0-0); Immature Granulocytes Auto 0.01 Thou/mm3 (0.00-0.00); Lymphocytes # (Auto) 0.4 Thou/mm3 (1.0-4.8); Lymphocytes % (Auto) 10 % (10-50); Mean Corpuscular HGB Conc 36.3 g/dl (31.0-37.0); Mean Corpuscular Hemoglobin 34.4 pg (25.0-35.0); Mean Corpuscular Volume 95 fL (80-100); Monocytes # (Auto) 0.6 Thou/mm3 (0.0-0.8); Monocytes % (Auto) 13 % (0-12); Neutrophils # (Auto) 3.3 Thou/mm3 (1.8-7.7); Neutrophils % (Auto) 73 % (37-80); Nucleated Red Blood Cell % 0 /100 WBC (0); Platelet Count 172 Thou/mm3 (140-440); RDW Standard Deviation 43.8 fL (35.1-43.9); Red Blood Count 4.07 Miln/mm3 (4.50-5.90); White Blood Count 4.5 Thou/mm3 (3.8-10.6)
[2024-07-07 07:13] LABS: Alanine Aminotransferase 132 U/L (10-49); Albumin, Serum 3.6 gm/dL (3.4-4.8); Albumin/Globulin Ratio 1.2 (1.2-2.2); Alkaline Phosphatase 77 U/L (46-116); Anion Gap 6 (7-16); Aspartate Amino Transferase 141 U/L (0-34); BUN/Creatinine Ratio 11 Ratio (12-20); Bilirubin,Total 1.4 mg/dL (0.3-1.2); Blood Urea Nitrogen 8 mg/dL (9-23); Calcium 8.4 mg/dL (8.3-10.6); Calcium (Corrected) 8.7 mg/dL (8.5-10.1); Carbon Dioxide 24.2 mMol/L (20.0-31.0); Chloride 94 mMol/L (98-107); Creatinine (Component) 0.7 mg/dL (0.6-1.3); Estimated Creatinine Clearance 142.9 mL/min (>60); Glucose 98 mg/dL (74-106); Osmolality,Calculated 247 (275-295); Potassium 3.9 mMol/L (3.4-5.1); Sodium 124 mMol/L (136-145); Total Protein 6.6 gm/dL (5.7-8.2); eGFR > 60 See Note
[2024-07-07] MEDS: DILTIAZEM CD 120 MG CAPCR 480 MG PO (09:09)
[2024-07-07] MEDS: PANTOPRAZOLE INJ 40 MG VIAL IV ×2 (09:09→21:15)
[2024-07-07] MEDS: NICOTINE PATCH 14 MG/24 HR PATCH.TD24 TOP (09:09)
[2024-07-07] MEDS: Lisinopril 20 MG TABLET 40 MG PO (09:10)
[2024-07-07] MEDS: MULTIVITAMINS TABLET 1 TAB PO (09:10)
--- NOTE | 2024-07-07 09:14 | ESPR_ITS ---
Documentation for date of: 07/07/24 Subjective Subjective Interval history: Mr. Agrawal is a 68-year-old male with a past medical history of hypertension, hyperlipidemia, morbid obesity, and atrial fibrillation on Xarelto. He presented overnight with right foot weakness, numbness, and tingling. Initial labs revealed severe hyponatremia (Na 109). He also has a history of alcohol abuse, consuming approximately 12 beers daily for the past 10 years, with his last drink being yesterday. The patient denied chest pain, shortness of breath, vomiting, headache, or visual/auditory hallucinations. Home medications include hydrochlorothiazide (a potential contributor to hyponatremia), lisinopril, Cardizem, and Xarelto. ED Course: Hemodynamically stable, saturating well on room air. Labs: Hypochloremic hypoosmolar hyponatremia, mild transaminitis likely secondary to alcohol use. Head CT: Negative for acute hemorrhage, mass, or midline shift. Management: Received 500L normal saline in the ED and was admitted for further management of hyponatremia. 07/03/2024: Patient seen and examined at bedside. No acute overnight events. Sodium was checked every 3 hours, the last is 114, which is in acceptable range. D5W was stopped yesterday, continue fluid restriction 1000 mL daily, nephrology also is on board, urine electrolytes revealed dilute urine, sodium, potassium less than 10, chloride less than 20, however patient made total of 925 cc of urine output in 24-hour. CIWA was 0 overnight. Continue to monitor, continue fluid restriction, continue every 4 hours sodium check, will continue seizure precaution. We are agree with primary team management. 07/05/2024: Examined at bedside. No acute overnight events. Continued on sodium checks q.3h., hypertonic saline and salt tablets BID. Most recent sodium 119. Had 700 cc urine output, and about 1 L of emesis, he is on SCOPOLAMINE patch. Denies fever, chills, headaches, chest pain, sob, cough, GI or urinary symptoms. Will continue with fluid restrictions, 3% NS, and salt tablets for now. Will continue monitoring renal function and sodium Q4H. 07/06/2024: Examined at bedside. No acute overnight events. Sodium 123 today. Denies new symptoms or worsening of symptoms. Denies fever, chills, headaches, chest pain, sob, cough, GI or urinary symptoms. Will d/c hypertonic saline and continue with salt tabs TID. Continue sodium checks Q4H. 07/07/2024 Examined at bedside. No acute overnight events. Denies new symptoms or worsening symptoms. Denies fever, chills, headaches, chest pain, sob, cough, GI or urinary symptoms. Sodium stable at 123-124 with fluid restrictions and salt tabs TID. May d/c when sodium 126. Will send home on salt tabs BID and see in office in 1 week. Exam Vital Signs Temp Pulse Resp BP Pulse Ox O2 Del Method O2 Flow Rate 96.6 F L 76 19 148/97 H 97 CPAP 3 07/07/24 08:00 07/07/24 09:10 07/07/24 08:00 07/07/24 09:10 07/07/24 08:00 07/07/24 08:00 07/05/24 18:40 Narrative Exam General: Awake. Morbidly obese HEENT: Normocephalic, atraumatic, mucous membranes moist. Heart: Irregular rate and rhythm, no murmurs. Lungs: Clear to auscultation with no wheezing or crackles. Abdomen: Soft, nondistended, nontender, positive bowel sounds. ?No guarding or rebound tenderness. Neurologic: Alert and oriented x3, no gross neurological deficit, and patient able to move all 4 extremities. Extremities: No edema. Skin: No rash or ecchymoses. Objective Labs 07/08/24 04:40 07/08/24 04:40 Labs: Laboratory Results - last 24 hr 07/06/24 07/06/24 07/06/24 10:35 15:26 18:51 WBC RBC Hgb Hct MCV MCH MCHC RDW Std Deviation Plt Count Neut % (Auto) Lymph % (Auto) [place] % (Auto) Eos % (Auto) Baso % (Auto) Neut # (Auto) Lymph # (Auto) [place] # (Auto) Eos # (Auto) Baso # (Auto) Immature Gran # (Auto) Absolute Nucleated RBC Immature Gran % Nucleated RBC % Sodium 123 L 124 L 123 L Potassium Chloride Carbon Dioxide Anion Gap BUN Creatinine Estim Creat Clear Calc eGFR BUN/Creatinine Ratio Glucose Calculated Osmolality Calcium Corrected Calcium Total Bilirubin AST ALT Alkaline Phosphatase Total Protein Albumin Globulin Albumin/Globulin Ratio 07/06/24 07/07/24 07/07/24 22:20 02:36 06:30 WBC 4.5 RBC 4.07 L Hgb 14.0 Hct 38.6 L MCV 95 MCH 34.4 MCHC 36.3 RDW Std Deviation 43.8 Plt Count 172 Neut % (Auto) 73 Lymph % (Auto) 10 [place] % (Auto) 13 H Eos % (Auto) 3 Baso % (Auto) 1 Neut # (Auto) 3.3 Lymph # (Auto) 0.[address] [place] # (Auto) 0.6 Eos # (Auto) 0.2 Baso # (Auto) 0.1 Immature Gran # (Auto) 0.01 H Absolute Nucleated RBC 0.00 Immature Gran % 0 Nucleated RBC % 0 Sodium 123 L 123 L 124 L Potassium 3.9 Chloride 94 L Carbon Dioxide 24.2 Anion Gap 6 L BUN 8 L Creatinine 0.7 Estim Creat Clear Calc 142.9 eGFR > 60 BUN/Creatinine Ratio 11 L Glucose 98 Calculated Osmolality 247 L Calcium 8.4 Corrected Calcium 8.7 Total Bilirubin 1.4 H AST 141 H ALT 132 H Alkaline Phosphatase 77 Total Protein 6.6 Albumin 3.6 Globulin 3.0 Albumin/Globulin Ratio 1.2 Quality Measures Quality Measures VTE prophylaxis Advance care planning discussed with:: patient Assessment & Plan Assessment Current Active Medications: Generic Name Dose Route Start Last Admin Trade Name Freq PRN Reason Stop Dose Admin Acetaminophen 650 mg 07/01/24 20:04 Acetaminophen 325 Mg Tablet PO 07/31/24 20:03 Q6H PRN Fever >101.5 Diltiazem HCl 480 mg 07/06/24 09:00 07/07/24 09:09 Diltiazem Cd 120 Mg Capcr PO 08/05/24 08:59 480 mg Q24H ANTONY Administration Lisinopril 40 mg 07/06/24 09:00 07/07/24 09:10 Lisinopril 20 Mg Tablet PO 08/05/24 08:59 40 mg DAILY ANTONY Administration Multivitamins 1 tab 07/02/24 09:00 07/07/24 09:10 Multivitamins Tablet PO 08/01/24 08:59 1 tab QDAY ANTONY Administration Nicotine 14 mg 07/03/24 14:15 07/07/24 09:09 Nicotine Patch 14 Mg/24 Hr Patch.Td24 TOP 08/02/24 14:14 14 mg QDAY ANTONY Administration Pantoprazole Sodium 40 mg 07/04/24 21:00 07/07/24 09:09 Pantoprazole Inj 40 Mg Vial IV 08/03/24 20:59 40 mg BID ANTONY Administration Rivaroxaban 20 mg 07/02/24 17:30 07/06/24 17:27 Rivaroxaban 10 Mg Tablet PO 08/01/24 17:29 20 mg WSUPPER ANTONY Administration Scopolamine 1 mg 07/04/24 16:00 07/04/24 16:47 Scopolamine 1 Mg Tdsy TOP 08/03/24 15:59 1 mg Q3D ANTONY Administration Sodium Chloride 1 gm 07/06/24 22:00 07/07/24 05:09 Sodium Chloride 1 Gm Tablet PO 08/05/24 21:59 1 gm TID ANTONY Administration Plan 68-year-old male with past medical history of morbid obesity, hypertension, hyperlipidemia, atrial fibrillation on Xarelto, chronic alcoholism presented to the hospital with chief complaints of weakness in the lower extremities and having multiple falls since 3 days and admitted for hyponatremia. Sodium appears stable 123?124. Continue with salt tablets TID and fluid restrictions. Will repeat sodium at noon today. May discharge if sodium 126 or above. Will send home on salt tablets BID for 1 week and we'll see him in office in 1 week. Hyponatremia Hypochloremia Likely beer potomania on admission in the setting of chronic alcoholism, likely could be having mild chronic hyponatremia. History of alcoholism and reports consuming 12?13 beers daily and minimal food intake. On home HYDROCHLOROTHIAZIDE for 10 years. Presented with bilateral lower extremity weakness and multiple falls. He denies fever, nausea, vomiting or diarrhea. Admission sodium 109, osmolality 218. TSH, free T4 and GLUCOSE were WNL. Continued on 3% hypertonic saline, salt tablets BID, and fluid restrictions. Sodium stable, 124 today. Will repeat sodium this afternoon, may discharge when sodium is 126. ? Continue fluid restriction to 1500 cc daily ? Continue salt tablets TID ? Discharge with salt tablets BID for 1 week. ? Continue sodium checks q.4h. ? Renally dose meds, avoid overdiuresis and NEPHROTOXINS ? Daily CMP Acute on Chronic severe Hyponatremia A-fib Elevated transaminases Prominent pancreatic head Alcohol Use Disorder Hypertension Hyperlipidemia Hx of NISREEN Hx of morbid obesity Nicotine dependence Managed by primary team. Thank you for allowing us to involved in the care of the patient. Patient case was discussed with attending, Dr. Campbell. Charo Cunningham DO PGYI Attending Provider Attestation/Addendum Patient seen and examined with resident physician Dr. Mancilla. Note reviewed, agree with findings and recommendations. Patient sodium dropped again to 124. Patient completely alert awake and oriented. No need for 3% hypertonic saline. Suspect underlying SIADH. Increase salt tablets to 3 times daily. Continue fluid restriction.
[2024-07-07 14:25] LABS: Sodium 125 mMol/L (136-145)
--- NOTE | 2024-07-07 15:35 | ESPR_ITS ---
Documentation for date of: 07/07/24 Senior resident attestation: The patient is a 62-year-old male with a past medical history of hypertension, hyperlipidemia, obesity, history of A-fib on Xarelto, who was admitted for severe symptomatic hyponatremia. Secondary to beer potomania. Problems: #Hyponatremia?serum sodium 109 on arrival, slowly improving, patient had altered mentation, requiring 3% hypertonic saline infusion after consulting with nephrology. Sodium continued to improve slowly, later sodium improved to 125. Will discontinue hypertonic NS, continue with water restriction and salt tabs. But later downtrending serum sodium continues to hover around 123, per nephrology restart the patient on hypertonic saline 3%, salt tabs 3 times daily, repeat sodium checks every 4 hourly. Will order repeat urine studies. Prior urine electrolytes on 07/03/2024 showed urine sodium random < 20 but 24-hour urine sodium was 850 (normal< 220). #GI bleed?likely secondary to bleeding esophageal ulcers and severe duodenitis. On Protonix IV twice daily, octreotide drip discontinued, started on protein diet. Patient resumed on Xarelto after consulting with GI. #Atrial fibrillation?history of A-fib, [id number] score 3, on anticoagulation with Xarelto at home, Xarelto was held due to GI bleed. Will have a risk- benefit discussion with the patient. Per GI can resume Xarelto . #Alcohol abuse disorder?chronic alcohol for many years use following passing of his son, on CIME protocol, recommend alcohol abstinence. On gabapentin 100 mg twice daily, Patient evaluated and examined at the bedside, plan of care discussed with rest of the team including my attending physician, except as noted. Quresh PGY2 Subjective Subjective Interval history: No overnight events. Patient seen examined at bedside, resting comfortably. Patient reports feeling subjectively better this morning. Reports still having sore throat. Patient denies nausea, vomiting, chest pain, abdominal pain, weakness, headaches. Salt tabs 3 times daily, monitor sodium. Added spray for sore throat. Likely DC tomorrow. Exam Vital Signs Temp Pulse Resp BP Pulse Ox O2 Del Method O2 Flow Rate 97.6 F 78 17 134/90 H 96 Room Air 3 07/07/24 12:00 07/07/24 12:00 07/07/24 12:00 07/07/24 12:00 07/07/24 12:00 07/07/24 12:00 07/05/24 18:40 Narrative Exam General: Awake. Morbidly obese HEENT: Normocephalic, atraumatic, mucous membranes moist. Heart: Irregular rate and rhythm, no murmurs. Lungs: Clear to auscultation with no wheezing or crackles. Abdomen: Soft, nondistended, nontender. Neurologic: Alert and oriented x3, no gross neurological deficit, and patient able to move all 4 extremities. Extremities: No edema. Skin: No rash or ecchymoses. Objective Labs 07/08/24 04:40 07/08/24 11:50 Labs: Laboratory Results - last 24 hr 07/06/24 07/06/24 07/06/24 15:26 18:51 22:20 WBC RBC Hgb Hct MCV MCH MCHC RDW Std Deviation Plt Count Neut % (Auto) Lymph % (Auto) [place] % (Auto) Eos % (Auto) Baso % (Auto) Neut # (Auto) Lymph # (Auto) [place] # (Auto) Eos # (Auto) Baso # (Auto) Immature Gran # (Auto) Absolute Nucleated RBC Immature Gran % Nucleated RBC % Sodium 124 L 123 L 123 L Potassium Chloride Carbon Dioxide Anion Gap BUN Creatinine Estim Creat Clear Calc eGFR BUN/Creatinine Ratio Glucose Calculated Osmolality Calcium Corrected Calcium Total Bilirubin AST ALT Alkaline Phosphatase Total Protein Albumin Globulin Albumin/Globulin Ratio 07/07/24 07/07/24 07/07/24 02:36 06:30 13:50 WBC 4.5 RBC 4.07 L Hgb 14.0 Hct 38.6 L MCV 95 MCH 34.4 MCHC 36.3 RDW Std Deviation 43.8 Plt Count 172 Neut % (Auto) 73 Lymph % (Auto) 10 [place] % (Auto) 13 H Eos % (Auto) 3 Baso % (Auto) 1 Neut # (Auto) 3.3 Lymph # (Auto) 0.4 L [place] # (Auto) 0.6 Eos # (Auto) 0.2 Baso # (Auto) 0.1 Immature Gran # (Auto) 0.01 H Absolute Nucleated RBC 0.00 Immature Gran % 0 Nucleated RBC % 0 Sodium 123 L 124 L 125 L Potassium 3.9 Chloride 94 L Carbon Dioxide 24.2 Anion Gap 6 L BUN 8 L Creatinine 0.7 Estim Creat Clear Calc 142.9 eGFR > 60 BUN/Creatinine Ratio 11 L Glucose 98 Calculated Osmolality 247 L Calcium 8.4 Corrected Calcium 8.7 Total Bilirubin 1.4 H AST 141 H ALT 132 H Alkaline Phosphatase 77 Total Protein 6.6 Albumin 3.6 Globulin 3.0 Albumin/Globulin Ratio 1.2 Quality Measures Quality Measures VTE prophylaxis Advance care planning discussed with:: patient Assessment & Plan Assessment Current Active Medications: Generic Name Dose Route Start Last Admin Trade Name Freq PRN Reason Stop Dose Admin Acetaminophen 650 mg 07/07/24 10:58 Acetaminophen 325 Mg Tablet PO 07/31/24 20:03 Q6H PRN Pain and Fever >100.3 Diltiazem HCl 480 mg 07/06/24 09:00 07/07/24 09:09 Diltiazem Cd 120 Mg Capcr PO 08/05/24 08:59 480 mg Q24H ANTONY Administration Lisinopril 40 mg 07/06/24 09:00 07/07/24 09:10 Lisinopril 20 Mg Tablet PO 08/05/24 08:59 40 mg DAILY ANTONY Administration Multivitamins 1 tab 07/02/24 09:00 07/07/24 09:10 Multivitamins Tablet PO 08/01/24 08:59 1 tab QDAY ANTONY Administration Nicotine 14 mg 07/03/24 14:15 07/07/24 09:09 Nicotine Patch 14 Mg/24 Hr Patch.Td24 TOP 08/02/24 14:14 14 mg QDAY ANTONY Administration Pantoprazole Sodium 40 mg 07/04/24 21:00 07/07/24 09:09 Pantoprazole Inj 40 Mg Vial IV 08/03/24 20:59 40 mg BID ANTONY Administration Phenol/Menthol 0 ml 07/07/24 10:57 Phenol/Na Phenolate (Chloraseptic) [place] 180 Ml Btl PO 08/06/24 10:56 Q6HR PRN SORE THROAT Rivaroxaban 20 mg 07/02/24 17:30 07/06/24 17:27 Rivaroxaban 10 Mg Tablet PO 08/01/24 17:29 20 mg WSUPPER ANTONY Administration Scopolamine 1 mg 07/04/24 16:00 07/04/24 16:47 Scopolamine 1 Mg Tdsy TOP 08/03/24 15:59 1 mg Q3D ANTONY Administration Sodium Chloride 1 gm 07/06/24 22:00 07/07/24 13:50 Sodium Chloride 1 Gm Tablet PO 08/05/24 21:59 1 gm TID ANTONY Administration Plan 68 y/o male with PMHx hypertension, hyperlipidemia, morbid obesity, A-fib (on Xarelto) who is admitted for acute on chronic severe hyponatremia. #Symptomatic Severe Hyponatremia likely 2/2 to beer potomania, acute (improving) Etiology likely 2/2 to beer potomania. Unlikely a chronic condition. Patient does have symptoms such as weakness and paresthesias in the lower extremities. No altered mentation. Normovolemic on exam, euvolemic labs, no acute neurologic symptoms, GCS 15. Pt is not altered at this point, AAOx3, however will still require frequent sodium checks. Patient sodium still significantly low despite several days of treatment. Initiating Hypertonic saline at 15 mL/h x 500 mL Sodium has improved to 119, will decrease frequency of sodium checks. Central line was not placed, leading to unnecessary has patient sodium improved. Patient sodium increased to 124, remains asymptomatic. Will continue to monitor until reaching goal of 126 as per nephrology recommendations. -Hold HCTZ. -Free water restriction -Salt tabs 1 g 3 times daily -Seizure precautions -Nephrology consulted, appreciate recommendations #Upper GI bleed Patient had episode of hematemesis with 750 mL of coffee-ground material. GI consulted, patient is on octreotide drip, Protonix, Rocephin. Patient made n.p.o., pending EGD. Hemoglobin remained stable. Patient received EGD which showed multiple linear esophageal ulcers, oozing blood. Octreotide drip and Rocephin stopped, patient placed on peptic ulcer diet. GI cleared to resume home anticoagulation. -Trend hemoglobin -Protonix 40 mg IV twice daily -GI consulted, appreciate recommendations #A-fib [id number]: 3 Rate: Controlled Rhythm: Regular at this point AC: Xarleto 20 Unsure pt's heart failure status No echo on file -Resuming patient on anticoag with GI recommendations -Keep magnesium and potasium above 2 and 4 respectively to avoid any cardiac arrythmias -Resume home meds: Diltiazem for 480 mg p.o. daily #Elevated transaminases #Prominent pancreatic head #Alcohol Use Disorder #Alcoholic neuoropathy Chronic alcohol use (12-pack/day x10 years), at risk for withdrawal, malnutrition, hepatic injury. Elevated AST/ALT (AST>ALT 2:1 in alcoholic fashion), mild hyperbilirubinemia, PT/INR slightly elevated Lives alone, limited social support. -Administer thiamine, folate, multivitamins -[facility] protocol -Trend LFTs -start gabapetin 100mg BID #Hypertension #Hyperlipidemia Chronic Not taking statin -Holding blood pressure medicines as blood pressures soft at this point #Hx of NISREEN #Hx of morbid obesity -Resumed CPAP HS #Nicotine dependence -Nicotine patch -Discussed smoking cessation -Consider Chantix outpatient DVT prophylaxis: Xarelto GI prophylaxis: Protonix Diet: Peptic ulcer diet CODE STATUS: Full Lines: Peripheral IV Plan of care discussed with senior resident Dr. Curiel PGY?[address] Watson. Adrian Boone MD PGY?1 Attending Provider Attestation/Addendum I have discussed and was present for the essential components of the history, physical examination, diagnosis, and treatment plan with the resident. I agree with the patient's care as documented by the resident and amended herein by me. Benton Watson, DO. Patient seen and evaluated this AM. Vital signs stable, patient afebrile overnight, BP slightly elevated at 158/94. CBC largely unremarkable, BMP significant for a sodium of 124 and later in the afternoon went up to 125. T. bili slightly elevated 1.4 however stable. Will continue fluid restrictions, salt tabs 3 times daily and a peptic ulcer diet. Xarelto also restarted per gastroenterology recommendations. Patient will be continued on PPI at discharge, need close follow-up with his PCP, likely discharge tomorrow on 07/08 if sodium continues to improve. Hyponatremia likely component of hydrochlorothiazide, beer [place] or[place] and possible SIADH. Will continue to monitor closely while he is here. Although this document has been carefully reviewed, there may still be some phonetic and other typographical errors. These errors are purely grammatical due to imperfections in the software program and should not be construed in any way to compromise the substance of the patient's medical care during this visit.
--- NOTE | 2024-07-07 15:52 | PC.SS ---
Update: Plan is to continue to monitor patient's sodium level. Possible d/c tomorrow.
[2024-07-07] MEDS: SCOPOLAMINE 1 MG TDSY TOP (16:13)
[2024-07-07] MEDS: RIVAROXABAN 10 MG TABLET 20 MG PO (17:30)
--- NOTE | 2024-07-07 20:37 | PD.IMPROG ---
Documentation for date of: 07/07/24 Subjective Subjective Interval history: Patient evaluated upper endoscopy showed ulceration of the esophagus and gastritis Exam Vital Signs Temp Pulse Resp BP Pulse Ox O2 Del Method O2 Flow Rate 97.6 F 71 19 137/89 H 95 Room Air 3 07/07/24 20:00 07/07/24 20:00 07/07/24 20:00 07/07/24 20:00 07/07/24 20:00 07/07/24 20:00 07/05/24 18:40 Objective Labs 07/07/24 06:30 07/07/24 13:50 Labs: Laboratory Results - last 24 hr 07/06/24 07/07/24 07/07/24 22:20 02:36 06:30 WBC 4.5 RBC 4.07 L Hgb 14.0 Hct 38.6 L MCV 95 MCH 34.4 MCHC 36.3 RDW Std Deviation 43.8 Plt Count 172 Neut % (Auto) 73 Lymph % (Auto) 10 [place] % (Auto) 13 H Eos % (Auto) 3 Baso % (Auto) 1 Neut # (Auto) 3.3 Lymph # (Auto) 0.4 L [place] # (Auto) 0.6 Eos # (Auto) 0.2 Baso # (Auto) 0.1 Immature Gran # (Auto) 0.01 H Absolute Nucleated RBC 0.00 Immature Gran % 0 Nucleated RBC % 0 Sodium 123 L 123 L 124 L Potassium 3.9 Chloride 94 L Carbon Dioxide 24.2 Anion Gap 6 L BUN 8 L Creatinine 0.7 Estim Creat Clear Calc 142.9 eGFR > 60 BUN/Creatinine Ratio 11 L Glucose 98 Calculated Osmolality 247 L Calcium 8.4 Corrected Calcium 8.7 Total Bilirubin 1.4 H AST 141 H ALT 132 H Alkaline Phosphatase 77 Total Protein 6.6 Albumin 3.6 Globulin 3.0 Albumin/Globulin Ratio 1.2 07/07/24 13:50 WBC RBC Hgb Hct MCV MCH MCHC RDW Std Deviation Plt Count Neut % (Auto) Lymph % (Auto) [place] % (Auto) Eos % (Auto) Baso % (Auto) Neut # (Auto) Lymph # (Auto) [place] # (Auto) Eos # (Auto) Baso # (Auto) Immature Gran # (Auto) Absolute Nucleated RBC Immature Gran % Nucleated RBC % Sodium 125 L Potassium Chloride Carbon Dioxide Anion Gap BUN Creatinine Estim Creat Clear Calc eGFR BUN/Creatinine Ratio Glucose Calculated Osmolality Calcium Corrected Calcium Total Bilirubin AST ALT Alkaline Phosphatase Total Protein Albumin Globulin Albumin/Globulin Ratio Impressions Impression: Ulceration esophagus moderate gastritis Continue current management Assessment & Plan A&P Narrative # Hematemesis in the setting of chronic liver disease secondary to alcoholism Plan Agree with octreotide infusion and IV Protonix Consent obtained for fiberoptic esophagogastroduodenoscopy with possible therapeutic intervention possible biopsy under intravenous moderate sedation N.p.o. 6 AM tomorrow Serial CBC Other medical problems include # Hyponatremia # Chronic liver disease secondary to alcohol # Right foot pain # Fatty liver with hepatomegaly Thank you very much for the opportunity to participate in care of this patient Time Spent With Patient Time: Total time spent is greater than 50% in coordination of care (as documented) at patient's floor/unit and/or counseling patient:
[2024-07-08] VITALS (9 sets, daily range): BP systolic 101–145; BP diastolic 64–91; PULSE 61–101; RESP 16–19; TEMP 35.9–36.5; O2SAT 95–97; BMI 42.3
[2024-07-08] MEDS: SODIUM CHLORIDE 1 GM TABLET PO ×4 (05:12→21:12)
[2024-07-08 05:35] LABS: Basophils # (Auto) 0.1 Thou/mm3 (0.0-0.2); Basophils % (Auto) 1 % (0-2.5); Eosinophils # (Auto) 0.1 Thou/mm3 (0.0-0.5); Eosinophils % (Auto) 3 % (0-10); Hematocrit 37.6 % (41.0-53.0); Hemoglobin 13.3 g/dL (13.5-16.0); Immature Granulocytes % (Auto) 0 % (0-0); Immature Granulocytes Auto 0.02 Thou/mm3 (0.00-0.00); Lymphocytes # (Auto) 0.5 Thou/mm3 (1.0-4.8); Lymphocytes % (Auto) 11 % (10-50); Mean Corpuscular HGB Conc 35.4 g/dl (31.0-37.0); Mean Corpuscular Hemoglobin 34.5 pg (25.0-35.0); Mean Corpuscular Volume 98 fL (80-100); Monocytes # (Auto) 0.7 Thou/mm3 (0.0-0.8); Monocytes % (Auto) 15 % (0-12); Neutrophils # (Auto) 3.1 Thou/mm3 (1.8-7.7); Neutrophils % (Auto) 70 % (37-80); Nucleated Red Blood Cell % 0 /100 WBC (0); Platelet Count 171 Thou/mm3 (140-440); RDW Standard Deviation 44.7 fL (35.1-43.9); Red Blood Count 3.85 Miln/mm3 (4.50-5.90); White Blood Count 4.5 Thou/mm3 (3.8-10.6)
[2024-07-08 06:33] LABS: Alanine Aminotransferase 115 U/L (10-49); Albumin, Serum 3.6 gm/dL (3.4-4.8); Albumin/Globulin Ratio 1.2 (1.2-2.2); Alkaline Phosphatase 75 U/L (46-116); Anion Gap 9 (7-16); Aspartate Amino Transferase 107 U/L (0-34); BUN/Creatinine Ratio 11 Ratio (12-20); Bilirubin,Total 1.3 mg/dL (0.3-1.2); Blood Urea Nitrogen 8 mg/dL (9-23); Calcium 8.6 mg/dL (8.3-10.6); Calcium (Corrected) 8.9 mg/dL (8.5-10.1); Carbon Dioxide 24.8 mMol/L (20.0-31.0); Chloride 90 mMol/L (98-107); Creatinine (Component) 0.7 mg/dL (0.6-1.3); Estimated Creatinine Clearance 143.1 mL/min (>60); Glucose 86 mg/dL (74-106); Osmolality,Calculated 246 (275-295); Phosphorous 3.4 mg/dL (2.4-5.1); Potassium 3.8 mMol/L (3.4-5.1); Sodium 124 mMol/L (136-145); Total Protein 6.6 gm/dL (5.7-8.2); eGFR > 60 See Note
[2024-07-08] MEDS: DILTIAZEM CD 120 MG CAPCR 480 MG PO (08:28)
[2024-07-08] MEDS: MULTIVITAMINS TABLET 1 TAB PO (08:29)
[2024-07-08] MEDS: Lisinopril 20 MG TABLET 40 MG PO (08:29)
[2024-07-08] MEDS: PANTOPRAZOLE INJ 40 MG VIAL IV ×2 (08:30→20:15)
[2024-07-08] MEDS: NICOTINE PATCH 14 MG/24 HR PATCH.TD24 TOP (08:34)
[2024-07-08 12:24] LABS: Sodium 123 mMol/L (136-145)
--- NOTE | 2024-07-08 12:55 | ESPR_ITS ---
Documentation for date of: 07/08/24 Subjective Subjective Interval history: Mr. Agrawal is a 68-year-old male with a past medical history of hypertension, hyperlipidemia, morbid obesity, and atrial fibrillation on Xarelto. He presented overnight with right foot weakness, numbness, and tingling. Initial labs revealed severe hyponatremia (Na 109). He also has a history of alcohol abuse, consuming approximately 12 beers daily for the past 10 years, with his last drink being yesterday. The patient denied chest pain, shortness of breath, vomiting, headache, or visual/auditory hallucinations. Home medications include hydrochlorothiazide (a potential contributor to hyponatremia), lisinopril, Cardizem, and Xarelto. ED Course: Hemodynamically stable, saturating well on room air. Labs: Hypochloremic hypoosmolar hyponatremia, mild transaminitis likely secondary to alcohol use. Head CT: Negative for acute hemorrhage, mass, or midline shift. Management: Received 500L normal saline in the ED and was admitted for further management of hyponatremia. 07/03/2024: Patient seen and examined at bedside. No acute overnight events. Sodium was checked every 3 hours, the last is 114, which is in acceptable range. D5W was stopped yesterday, continue fluid restriction 1000 mL daily, nephrology also is on board, urine electrolytes revealed dilute urine, sodium, potassium less than 10, chloride less than 20, however patient made total of 925 cc of urine output in 24-hour. CIWA was 0 overnight. Continue to monitor, continue fluid restriction, continue every 4 hours sodium check, will continue seizure precaution. We are agree with primary team management. 07/05/2024: Examined at bedside. No acute overnight events. Continued on sodium checks q.3h., hypertonic saline and salt tablets BID. Most recent sodium 119. Had 700 cc urine output, and about 1 L of emesis, he is on SCOPOLAMINE patch. Denies fever, chills, headaches, chest pain, sob, cough, GI or urinary symptoms. Will continue with fluid restrictions, 3% NS, and salt tablets for now. Will continue monitoring renal function and sodium Q4H. 07/06/2024: Examined at bedside. No acute overnight events. Sodium 123 today. Denies new symptoms or worsening of symptoms. Denies fever, chills, headaches, chest pain, sob, cough, GI or urinary symptoms. Will d/c hypertonic saline and continue with salt tabs TID. Continue sodium checks Q4H. 07/07/2024 Examined at bedside. No acute overnight events. Denies new symptoms or worsening symptoms. Denies fever, chills, headaches, chest pain, sob, cough, GI or urinary symptoms. Sodium stable at 123-124 with fluid restrictions and salt tabs TID. May d/c when sodium 126. Will send home on salt tabs BID and see in office in 1 week. 07/08/2024 Examined at bedside. Expressed frustration, wanting to go home. He is on salt tabs TID and fluid restriction. Sodium still 125-124. We gave extra salt tabs, repeat sodium 123. Will continue salt tabs TID, and resume 3% hypertonic with sodium check 3%. Goal for discharge sodium 126. Exam Vital Signs Temp Pulse Resp BP Pulse Ox O2 Del Method O2 Flow Rate 97.7 F 101 H 18 135/86 H 95 Room Air 3 07/08/24 12:00 07/08/24 12:00 07/08/24 12:00 07/08/24 12:07/08/24 12:07/08/24 12:07/05/24 18:40 Narrative Exam General: Awake. Morbidly obese HEENT: Normocephalic, atraumatic, mucous membranes moist. Heart: Irregular rate and rhythm, no murmurs. Lungs: Clear to auscultation with no wheezing or crackles. Abdomen: Soft, nondistended, nontender, positive bowel sounds. ?No guarding or rebound tenderness. Neurologic: Alert and oriented x3, no gross neurological deficit, and patient able to move all 4 extremities. Extremities: No edema. Skin: No rash or ecchymoses. Objective Labs 07/09/24 04:47 07/09/24 07:00 Labs: Laboratory Results - last 24 hr 07/07/24 07/08/24 07/08/24 13:50 04:40 11:50 WBC 4.5 RBC 3.85 L Hgb 13.3 L Hct 37.6 L MCV 98 MCH 34.5 MCHC 35.4 RDW Std Deviation 44.7 H Plt Count 171 Neut % (Auto) 70 Lymph % (Auto) 11 [place] % (Auto) 15 H Eos % (Auto) 3 Baso % (Auto) 1 Neut # (Auto) 3.1 Lymph # (Auto) 0.5 L [place] # (Auto) 0.7 Eos # (Auto) 0.1 Baso # (Auto) 0.1 Immature Gran # (Auto) 0.02 H Absolute Nucleated RBC 0.00 Immature Gran % 0 Nucleated RBC % 0 Sodium 125 L 124 L 123 L Potassium 3.8 Chloride 90 L Carbon Dioxide 24.8 Anion Gap 9 BUN 8 L Creatinine 0.7 Estim Creat Clear Calc 143.1 eGFR > 60 BUN/Creatinine Ratio 11 L Glucose 86 Calculated Osmolality 246 L Calcium 8.6 Corrected Calcium 8.9 Phosphorus 3.4 Magnesium 2.0 Total Bilirubin 1.3 H AST 107 H ALT 115 H Alkaline Phosphatase 75 Total Protein 6.6 Albumin 3.6 Globulin 3.0 Albumin/Globulin Ratio 1.2 Quality Measures Quality Measures VTE prophylaxis Advance care planning discussed with:: patient Assessment & Plan Assessment Current Active Medications: Generic Name Dose Route Start Last Admin Trade Name Freq PRN Reason Stop Dose Admin Acetaminophen 650 mg 07/07/24 10:58 Acetaminophen 325 Mg Tablet PO 07/31/24 20:03 Q6H PRN Pain and Fever >100.3 Diltiazem HCl 480 mg 07/06/24 09:00 07/08/24 08:28 Diltiazem Cd 120 Mg Capcr PO 08/05/24 08:59 480 mg Q24H ANTONY Administration Lisinopril 40 mg 07/06/24 09:00 07/08/24 08:29 Lisinopril 20 Mg Tablet PO 08/05/24 08:59 40 mg DAILY ANTONY Administration Multivitamins 1 tab 07/02/24 09:00 07/08/24 08:29 Multivitamins Tablet PO 08/01/24 08:59 1 tab QDAY ANTONY Administration Nicotine 14 mg 07/03/24 14:15 07/08/24 08:34 Nicotine Patch 14 Mg/24 Hr Patch.Td24 TOP 08/02/24 14:14 14 mg QDAY ANTONY Administration Pantoprazole Sodium 40 mg 07/04/24 21:00 07/08/24 08:30 Pantoprazole Inj 40 Mg Vial IV 08/03/24 20:59 40 mg BID ANTONY Administration Phenol/Menthol 0 ml 07/07/24 10:57 Phenol/Na Phenolate (Chloraseptic) [place] 180 Ml Btl PO 08/06/24 10:56 Q6HR PRN SORE THROAT Rivaroxaban 20 mg 07/02/24 17:30 07/07/24 17:30 Rivaroxaban 10 Mg Tablet PO 08/01/24 17:29 20 mg WSUPPER ANTONY Administration Scopolamine 1 mg 07/04/24 16:00 07/07/24 16:13 Scopolamine 1 Mg Tdsy TOP 08/03/24 15:59 1 mg Q3D ANTONY Administration Sodium Chloride 1 gm 07/06/24 22:00 07/08/24 05:12 Sodium Chloride 1 Gm Tablet PO 08/05/24 21:59 1 gm TID ANTONY Administration Sucralfate 1 gm 07/08/24 12:00 Sucralfate 1 Gm Tablet PO 08/07/24 11:59 QID ANTONY Plan 68-year-old male with past medical history of morbid obesity, hypertension, hyperlipidemia, atrial fibrillation on Xarelto, chronic alcoholism presented to the hospital with chief complaints of weakness in the lower extremities and having multiple falls since 3 days and admitted for hyponatremia. Sodium 124 today, and 123 after repeat despite additional salt x1 given this AM. Will continue with salt tabs TID and resume 3% hypertonic at 30 cc/h, repeat Nn Q3H. Hyponatremia Hypochloremia Likely beer potomania on admission in the setting of chronic alcoholism, likely could be having mild chronic hyponatremia. History of alcoholism and reports consuming 12?13 beers daily and minimal food intake. On home HYDROCHLOROTHIAZIDE for 10 years. Presented with bilateral lower extremity weakness and multiple falls. He denies fever, nausea, vomiting or diarrhea. Admission sodium 109, osmolality 218. TSH, free T4 and GLUCOSE were WNL. Continued on 3% hypertonic saline, salt tablets BID, and fluid restrictions. Sodium 123 today after additional salt tab given this AM. ? Continue fluid restriction to 1500 cc daily ? Continue salt tablets TID ? Resumed 3% hypertonic at 30 cc/h, sodium checks q3h ? Discharge with salt tablets BID for 1 week. ? Continue sodium checks q.4h. ? Renally dose meds, avoid overdiuresis and NEPHROTOXINS ? Daily CMP Acute on Chronic severe Hyponatremia A-fib Elevated transaminases Prominent pancreatic head Alcohol Use Disorder Hypertension Hyperlipidemia Hx of NISREEN Hx of morbid obesity Nicotine dependence Managed by primary team. Thank you for allowing us to involved in the care of the patient. Patient case was discussed with attending, Dr. Campbell. Charo Cunningham DO PGYI Attending Provider Attestation/Addendum Patient seen and examined with resident physician Dr. Mancilla. Note reviewed, agree with findings and recommendations. Patient sodium dropped again to 123. Patient completely alert awake and oriented. Added 3% hypertonic saline. Suspect underlying SIADH. Increase salt tablets to 3 times daily. Continue fluid restriction.
--- NOTE | 2024-07-08 13:12 | PC.SS ---
Follow up note: Patient worked with PT today and ambulated up to 50 feet with FWW. Patient will d/c home with family. SS will discuss with patient following up with [facility] as he is not from here. Patient will only be staying in town temporarily and then returning to [facility] with family. Patient's sodium level is being monitored. When at goal he can d/c home per physician team.
--- NOTE | 2024-07-08 14:04 | ESPR_ITS ---
Documentation for date of: 07/08/24 Senior resident attestation: The patient is a 62-year-old male with a past medical history of hypertension, hyperlipidemia, obesity, history of A-fib on Xarelto, who was admitted for severe symptomatic hyponatremia. Secondary to beer potomania. Problems: #Hyponatremia?serum sodium 109 on arrival, slowly improving, patient had altered mentation, requiring 3% hypertonic saline infusion after consulting with nephrology. Sodium continued to improve slowly, later sodium improved to 125. Will discontinue hypertonic NS, continue with water restriction and salt tabs. But later downtrending serum sodium continues to hover around 123, per nephrology restart the patient on hypertonic saline 3%, salt tabs 3 times daily, repeat sodium checks every 4 hourly. Will order repeat urine studies. Prior urine electrolytes on 07/03/2024 showed urine sodium random < 20 but 24-hour urine sodium was 850 (normal< 220). #GI bleed?likely secondary to bleeding esophageal ulcers and severe duodenitis. On Protonix IV twice daily, octreotide drip discontinued, started on protein diet. Patient resumed on Xarelto after consulting with GI. #Atrial fibrillation?history of A-fib, [id number] score 3, on anticoagulation with Xarelto at home, Xarelto was held due to GI bleed. Will have a risk- benefit discussion with the patient. Per GI can resume Xarelto . #Alcohol abuse disorder?chronic alcohol for many years use following passing of his son, on CIVA protocol, recommend alcohol abstinence. On gabapentin 100 mg twice daily, Patient evaluated and examined at the bedside, plan of care discussed with rest of the team including my attending physician, except as noted. Quresh PGY2 Subjective Subjective Interval history: No overnight events. Patient seen and examined sitting at side of bed, comfortable. Patient expresses feeling well, was able to tolerate physical therapy without issue. Denies nausea, vomiting, headaches, weakness. Sodium did not improve, reinitiated hypertonic saline with frequent sodium checks. Exam Vital Signs Temp Pulse Resp BP Pulse Ox O2 Del Method O2 Flow Rate 97.7 F 101 H 18 135/86 H 95 Room Air 3 07/08/24 12:00 07/08/24 12:07/08/24 12:07/08/24 12:00 07/08/24 12:00 07/08/24 12:00 07/05/24 18:40 Narrative Exam General: Awake. Morbidly obese HEENT: Normocephalic, atraumatic, mucous membranes moist. Heart: Irregular rate and rhythm, no murmurs. Lungs: Clear to auscultation with no wheezing or crackles. Abdomen: Soft, nondistended, nontender. Neurologic: Alert and oriented x3, no gross neurological deficit, and patient able to move all 4 extremities. Extremities: No edema. Skin: No rash or ecchymoses. Objective Labs 07/08/24 04:40 07/08/24 18:55 Labs: Laboratory Results - last 24 hr 07/07/24 07/08/24 07/08/24 13:50 04:40 11:50 WBC 4.5 RBC 3.85 L Hgb 13.3 L Hct 37.6 L MCV 98 MCH 34.5 MCHC 35.4 RDW Std Deviation 44.7 H Plt Count 171 Neut % (Auto) 70 Lymph % (Auto) 11 [place] % (Auto) 15 H Eos % (Auto) 3 Baso % (Auto) 1 Neut # (Auto) 3.1 Lymph # (Auto) 0.5 L [place] # (Auto) 0.7 Eos # (Auto) 0.1 Baso # (Auto) 0.1 Immature Gran # (Auto) 0.02 H Absolute Nucleated RBC 0.00 Immature Gran % 0 Nucleated RBC % 0 Sodium 125 L 124 L 123 L Potassium 3.8 Chloride 90 L Carbon Dioxide 24.8 Anion Gap 9 BUN 8 L Creatinine 0.7 Estim Creat Clear Calc 143.1 eGFR > 60 BUN/Creatinine Ratio 11 L Glucose 86 Calculated Osmolality 246 L Calcium 8.6 Corrected Calcium 8.9 Phosphorus 3.4 Magnesium 2.0 Total Bilirubin 1.3 H AST 107 H ALT 115 H Alkaline Phosphatase 75 Total Protein 6.6 Albumin 3.6 Globulin 3.0 Albumin/Globulin Ratio 1.2 Quality Measures Quality Measures VTE prophylaxis Advance care planning discussed with:: patient Assessment & Plan Assessment Current Active Medications: Generic Name Dose Route Start Last Admin Trade Name Freq PRN Reason Stop Dose Admin Acetaminophen 650 mg 07/07/24 10:58 Acetaminophen 325 Mg Tablet PO 07/31/24 20:03 Q6H PRN Pain and Fever >100.3 Diltiazem HCl 480 mg 07/06/24 09:00 07/08/24 08:28 Diltiazem Cd 120 Mg Capcr PO 08/05/24 08:59 480 mg Q24H ANTONY Administration Sodium Chloride 500 ml/ IV 500 mls @ 30 mls/hr 07/08/24 12:57 Miscellaneous Supplies IV 07/09/24 05:36 X1 ONE Lisinopril 40 mg 07/06/24 09:00 07/08/24 08:29 Lisinopril 20 Mg Tablet PO 08/05/24 08:59 40 mg DAILY ANTONY Administration Multivitamins 1 tab 07/02/24 09:00 07/08/24 08:29 Multivitamins Tablet PO 08/01/24 08:59 1 tab QDAY ANTONY Administration Nicotine 14 mg 07/03/24 14:15 07/08/24 08:34 Nicotine Patch 14 Mg/24 Hr Patch.Td24 TOP 08/02/24 14:14 14 mg QDAY ANTONY Administration Pantoprazole Sodium 40 mg 07/04/24 21:00 07/08/24 08:30 Pantoprazole Inj 40 Mg Vial IV 08/03/24 20:59 40 mg BID ANTONY Administration Phenol/Menthol 0 ml 07/07/24 10:57 Phenol/Na Phenolate (Chloraseptic) [place] 180 Ml Btl PO 08/06/24 10:56 Q6HR PRN SORE THROAT Rivaroxaban 20 mg 07/02/24 17:30 07/07/24 17:30 Rivaroxaban 10 Mg Tablet PO 08/01/24 17:29 20 mg WSUPPER ANTONY Administration Scopolamine 1 mg 07/04/24 16:00 07/07/24 16:13 Scopolamine 1 Mg Tdsy TOP 08/03/24 15:59 1 mg Q3D ANTONY Administration Sodium Chloride 1 gm 07/06/24 22:00 07/08/24 05:12 Sodium Chloride 1 Gm Tablet PO 08/05/24 21:59 1 gm TID ANTONY Administration Sucralfate 1 gm 07/08/24 12:00 Sucralfate 1 Gm Tablet PO 08/07/24 11:59 QID ANTONY Plan 68 y/o male with PMHx hypertension, hyperlipidemia, morbid obesity, A-fib (on Xarelto) who is admitted for acute on chronic severe hyponatremia. #Symptomatic Severe Hyponatremia likely 2/2 to beer potomania, acute (improving) Etiology likely 2/2 to beer potomania. Unlikely a chronic condition. Patient does have symptoms such as weakness and paresthesias in the lower extremities. No altered mentation. Normovolemic on exam, euvolemic labs, no acute neurologic symptoms, GCS 15. Pt is not altered at this point, AAOx3, however will still require frequent sodium checks. Patient sodium still significantly low despite several days of treatment. Initiating Hypertonic saline at 15 mL/h x 500 mL Sodium has improved to 119, will decrease frequency of sodium checks. Central line was not placed, leading to unnecessary has patient sodium improved. Patient sodium increased to 124, remains asymptomatic. Will continue to monitor until reaching goal of 126 as per nephrology recommendations. -Hold HCTZ. -Free water restriction -Salt tabs 1 g 3 times daily -Seizure precautions -Nephrology consulted, appreciate recommendations -Hypertonic saline 30 mL/h x 500 mL -Sodium checks every 3 hours #Upper GI bleed Patient had episode of hematemesis with 750 mL of coffee-ground material. GI consulted, patient is on octreotide drip, Protonix, Rocephin. Patient made n.p.o., pending EGD. Hemoglobin remained stable. Patient received EGD which showed multiple linear esophageal ulcers, oozing blood. Octreotide drip and Rocephin stopped, patient placed on peptic ulcer diet. GI cleared to resume home anticoagulation. -Trend hemoglobin -Protonix 40 mg IV twice daily -Sucralfate 1 g p.o. 4 times daily -GI consulted, appreciate recommendations #A-fib [id number]: 3 Rate: Controlled Rhythm: Regular at this point AC: Xarleto 20 Unsure pt's heart failure status No echo on file -Resuming patient on anticoag with GI recommendations -Keep magnesium and potasium above 2 and 4 respectively to avoid any cardiac arrythmias -Resume home meds: Diltiazem 480 mg p.o. daily #Elevated transaminases #Prominent pancreatic head #Alcohol Use Disorder #Alcoholic neuoropathy Chronic alcohol use (12-pack/day x10 years), at risk for withdrawal, malnutrition, hepatic injury. Elevated AST/ALT (AST>ALT 2:1 in alcoholic fashion), mild hyperbilirubinemia, PT/INR slightly elevated Lives alone, limited social support. -Administer thiamine, folate, multivitamins -[facility] protocol -Trend LFTs -start gabapetin 100mg BID #Hypertension #Hyperlipidemia Chronic Not taking statin -Resume patient home meds: Diltiazem, lisinopril #Hx of NISREEN #Hx of morbid obesity -Resumed CPAP HS #Nicotine dependence -Nicotine patch -Discussed smoking cessation -Consider Chantix outpatient DVT prophylaxis: Xarelto GI prophylaxis: Protonix Diet: Peptic ulcer diet CODE STATUS: Full Lines: Peripheral IV Plan of care discussed with senior resident Dr. Curiel PGY?[address] Watson. Adrian Boone MD PGY?1 Attending Provider Attestation/Addendum I have discussed and was present for the essential components of the history, physical examination, diagnosis, and treatment plan with the resident. I agree with the patient's care as documented by the resident and amended herein by me. Benton Watson, DO. Patient seen and evaluated this AM. Vital signs stable, patient afebrile overnight, I's and O's 1360/700. Significant labs include a stable hemoglobin of 13, sodium 124 however did dip down to 123 again, even after an additional salt tablet today, patient subsequently restarted back on hypertonic saline with every 3 hour sodium checks. Unclear the etiology at this time, initially thought beer Potomania in the setting of hydrochlorothiazide use however his sodium is being very resistant to treatment. He is urinary sodium excretion was also very high may be a component of SIADH or may be an adrenal problem hence we will check an 8 AM cortisol tomorrow. Cerebral salt wasting or reset osmostat also considered. Will continue to monitor closely, nephrology is on board, appreciate recommendations. Will continue to monitor closely, I know the patient really wants to leave as he states he feels well however sodium still too low and going in the wrong direction today. Will follow-up with labs to include urine osmolality which has been ordered. Although this document has been carefully reviewed, there may still be some phonetic and other typographical errors. These errors are purely grammatical due to imperfections in the software program and should not be construed in any way to compromise the substance of the patient's medical care during this visit.
[2024-07-08] MEDS: SODIUM CHLORIDE 3%(Hypertonic) 500 ML in PRE-MIXED 1 BAG 30 ML IV (14:25)
[2024-07-08] MEDS: SUCRALFATE 1 GM TABLET PO ×3 (14:25→20:15)
--- NOTE | 2024-07-08 14:34 | PC.NURSE ---
Current Na level 123, Dr. Zayas notified of sodium tablet and hypertonic saline. Dr. Zayas ordered to continue sodium tablets with starting the hypertonic saline. Pharmacy called and okayed for hypertonic saline to go through peripheral line.
[2024-07-08 16:24] LABS: Sodium 124 mMol/L (136-145)
[2024-07-08] MEDS: RIVAROXABAN 10 MG TABLET 20 MG PO (16:52)
--- NOTE | 2024-07-08 19:09 | PD.IMPROG ---
Documentation for date of: 07/08/24 Subjective Subjective Interval history: Patient evaluated Upper endoscopy showed esophageal ulceration Hemoglobin hematocrit 13.3 and 37.6 Exam Vital Signs Temp Pulse Resp BP Pulse Ox O2 Del Method O2 Flow Rate 97.7 F 78 18 101/73 97 Room Air 3 07/08/24 16:00 07/08/24 16:00 07/08/24 16:00 07/08/24 16:00 07/08/24 16:00 07/08/24 16:00 07/05/24 18:40 Objective Labs 07/08/24 04:40 07/08/24 16:00 Labs: Laboratory Results - last 24 hr 07/08/24 07/08/24 07/08/24 04:40 11:50 16:00 WBC 4.5 RBC 3.85 L Hgb 13.3 L Hct 37.6 L MCV 98 MCH 34.5 MCHC 35.4 RDW Std Deviation 44.7 H Plt Count 171 Neut % (Auto) 70 Lymph % (Auto) 11 [place] % (Auto) 15 H Eos % (Auto) 3 Baso % (Auto) 1 Neut # (Auto) 3.1 Lymph # (Auto) 0.5 L [place] # (Auto) 0.7 Eos # (Auto) 0.1 Baso # (Auto) 0.1 Immature Gran # (Auto) 0.02 H Absolute Nucleated RBC 0.00 Immature Gran % 0 Nucleated RBC % 0 Sodium 124 L 123 L 124 L Potassium 3.8 Chloride 90 L Carbon Dioxide 24.8 Anion Gap 9 BUN 8 L Creatinine 0.7 Estim Creat Clear Calc 143.1 eGFR > 60 BUN/Creatinine Ratio 11 L Glucose 86 Calculated Osmolality 246 L Calcium 8.6 Corrected Calcium 8.9 Phosphorus 3.4 Magnesium 2.0 Total Bilirubin 1.3 H AST 107 H ALT 115 H Alkaline Phosphatase 75 Total Protein 6.6 Albumin 3.6 Globulin 3.0 Albumin/Globulin Ratio 1.2 Impressions Impression: # Esophageal ulceration # GI bleed stable Continue present treatment Assessment & Plan A&P Narrative # Hematemesis in the setting of chronic liver disease secondary to alcoholism Plan Agree with octreotide infusion and IV Protonix Consent obtained for fiberoptic esophagogastroduodenoscopy with possible therapeutic intervention possible biopsy under intravenous moderate sedation N.p.o. 6 AM tomorrow Serial CBC Other medical problems include # Hyponatremia # Chronic liver disease secondary to alcohol # Right foot pain # Fatty liver with hepatomegaly Thank you very much for the opportunity to participate in care of this patient Time Spent With Patient Time: Total time spent is greater than 50% in coordination of care (as documented) at patient's floor/unit and/or counseling patient:
[2024-07-08 19:10] LABS: Sodium 124 mMol/L (136-145)
[2024-07-08 22:25] LABS: Sodium 125 mMol/L (136-145)
[2024-07-09] VITALS: BP 124/70; PULSE 82; RESP 16; TEMP 36.4; O2SAT 96
[2024-07-09 00:50] LABS: Sodium 128 mMol/L (136-145)
[2024-07-09 04:00] VITALS: BP 111/66; PULSE 78; RESP 20; TEMP 36; O2SAT 96
[2024-07-09] MEDS: SODIUM CHLORIDE 1 GM TABLET PO (05:26)
[2024-07-09] MEDS: SUCRALFATE 1 GM TABLET PO (05:26)
[2024-07-09 05:28] LABS: Basophils # (Auto) 0.1 Thou/mm3 (0.0-0.2); Basophils % (Auto) 1 % (0-2.5); Eosinophils # (Auto) 0.1 Thou/mm3 (0.0-0.5); Eosinophils % (Auto) 2 % (0-10); Hematocrit 35.8 % (41.0-53.0); Hemoglobin 12.6 g/dL (13.5-16.0); Immature Granulocytes % (Auto) 1 % (0-0); Immature Granulocytes Auto 0.03 Thou/mm3 (0.00-0.00); Lymphocytes # (Auto) 0.7 Thou/mm3 (1.0-4.8); Lymphocytes % (Auto) 14 % (10-50); Mean Corpuscular HGB Conc 35.2 g/dl (31.0-37.0); Mean Corpuscular Hemoglobin 34.4 pg (25.0-35.0); Mean Corpuscular Volume 98 fL (80-100); Monocytes # (Auto) 0.7 Thou/mm3 (0.0-0.8); Monocytes % (Auto) 13 % (0-12); Neutrophils # (Auto) 3.7 Thou/mm3 (1.8-7.7); Neutrophils % (Auto) 70 % (37-80); Nucleated Red Blood Cell % 0 /100 WBC (0); Platelet Count 202 Thou/mm3 (140-440); RDW Standard Deviation 45.5 fL (35.1-43.9); Red Blood Count 3.66 Miln/mm3 (4.50-5.90); White Blood Count 5.4 Thou/mm3 (3.8-10.6)
[2024-07-09 05:59] LABS: Alanine Aminotransferase 93 U/L (10-49); Albumin, Serum 3.3 gm/dL (3.4-4.8); Albumin/Globulin Ratio 1.2 (1.2-2.2); Alkaline Phosphatase 82 U/L (46-116); Anion Gap 9 (7-16); Aspartate Amino Transferase 81 U/L (0-34); BUN/Creatinine Ratio 9 Ratio (12-20); Bilirubin,Total 1.2 mg/dL (0.3-1.2); Blood Urea Nitrogen 6 mg/dL (9-23); Calcium 8.1 mg/dL (8.3-10.6); Calcium (Corrected) 8.7 mg/dL (8.5-10.1); Carbon Dioxide 23.1 mMol/L (20.0-31.0); Chloride 95 mMol/L (98-107); Creatinine (Component) 0.7 mg/dL (0.6-1.3); Estimated Creatinine Clearance 143.1 mL/min (>60); Globulin 2.8 gm/dL (2.3-3.5); Glucose 94 mg/dL (74-106); Magnesium 2.1 mg/dL (1.6-2.6); Osmolality,Calculated 252 (275-295); Phosphorous 3.5 mg/dL (2.4-5.1); Potassium 3.6 mMol/L (3.4-5.1); Sodium 127 mMol/L (136-145); Total Protein 6.1 gm/dL (5.7-8.2); eGFR > 60 See Note
[2024-07-09 06:00] VITALS: BMI 41.8
--- NOTE | 2024-07-09 06:26 | PC.NURSE ---
3% sodium drip has dc'd off of emar for timed out but several hours left still in bag to transfuse. I notified Dr. Dowell and he wants to finish saline bag before dc'ing and call dr when close to being done and see if another is needed.
[2024-07-09 07:59] LABS: Sodium 128 mMol/L (136-145)
[2024-07-09 08:00] VITALS: BP 138/90; PULSE 89; PULSE 98; RESP 18; TEMP 36.3; O2SAT 97
[2024-07-09 08:36] VITALS: BP 138/90; PULSE 98
[2024-07-09] MEDS: DILTIAZEM CD 120 MG CAPCR 480 MG PO (08:36)
[2024-07-09 08:37] VITALS: BP 138/90; PULSE 98
[2024-07-09] MEDS: PANTOPRAZOLE INJ 40 MG VIAL IV (08:37)
[2024-07-09] MEDS: MULTIVITAMINS TABLET 1 TAB PO (08:37)
[2024-07-09] MEDS: Lisinopril 20 MG TABLET 40 MG PO (08:37)
[2024-07-09] MEDS: NICOTINE PATCH 14 MG/24 HR PATCH.TD24 TOP (08:38)
--- NOTE | 2024-07-09 10:09 | ESPR_ITS ---
Documentation for date of: 07/09/24 Subjective Subjective Interval history: Mr. Agrawal is a 68-year-old male with a past medical history of hypertension, hyperlipidemia, morbid obesity, and atrial fibrillation on Xarelto. He presented overnight with right foot weakness, numbness, and tingling. Initial labs revealed severe hyponatremia (Na 109). He also has a history of alcohol abuse, consuming approximately 12 beers daily for the past 10 years, with his last drink being yesterday. The patient denied chest pain, shortness of breath, vomiting, headache, or visual/auditory hallucinations. Home medications include hydrochlorothiazide (a potential contributor to hyponatremia), lisinopril, Cardizem, and Xarelto. ED Course: Hemodynamically stable, saturating well on room air. Labs: Hypochloremic hypoosmolar hyponatremia, mild transaminitis likely secondary to alcohol use. Head CT: Negative for acute hemorrhage, mass, or midline shift. Management: Received 500L normal saline in the ED and was admitted for further management of hyponatremia. 07/03/2024: Patient seen and examined at bedside. No acute overnight events. Sodium was checked every 3 hours, the last is 114, which is in acceptable range. D5W was stopped yesterday, continue fluid restriction 1000 mL daily, nephrology also is on board, urine electrolytes revealed dilute urine, sodium, potassium less than 10, chloride less than 20, however patient made total of 925 cc of urine output in 24-hour. CIWA was 0 overnight. Continue to monitor, continue fluid restriction, continue every 4 hours sodium check, will continue seizure precaution. We are agree with primary team management. 07/05/2024: Examined at bedside. No acute overnight events. Continued on sodium checks q.3h., hypertonic saline and salt tablets BID. Most recent sodium 119. Had 700 cc urine output, and about 1 L of emesis, he is on SCOPOLAMINE patch. Denies fever, chills, headaches, chest pain, sob, cough, GI or urinary symptoms. Will continue with fluid restrictions, 3% NS, and salt tablets for now. Will continue monitoring renal function and sodium Q4H. 07/06/2024: Examined at bedside. No acute overnight events. Sodium 123 today. Denies new symptoms or worsening of symptoms. Denies fever, chills, headaches, chest pain, sob, cough, GI or urinary symptoms. Will d/c hypertonic saline and continue with salt tabs TID. Continue sodium checks Q4H. 07/07/2024 Examined at bedside. No acute overnight events. Denies new symptoms or worsening symptoms. Denies fever, chills, headaches, chest pain, sob, cough, GI or urinary symptoms. Sodium stable at 123-124 with fluid restrictions and salt tabs TID. May d/c when sodium 126. Will send home on salt tabs BID and see in office in 1 week. 07/08/2024 Examined at bedside. Expressed frustration, wanting to go home. He is on salt tabs TID and fluid restriction. Sodium still 125-124. We gave extra salt tabs, repeat sodium 123. Will continue salt tabs TID, and resume 3% hypertonic with sodium check 3%. Goal for discharge sodium 126. 07/09/24 examined at bedside. No new complaints, no worsening of symptoms. Vitals are stable. Physical exam is normal. Sodium 128 today. Okay to discharge home with salt tablets BID for 1 week. Recommended follow-up with PCP and referral to nephrology within 1-2 weeks. Exam Vital Signs Temp Pulse Resp BP Pulse Ox O2 Del Method O2 Flow Rate 97.4 F 98 18 138/90 H 97 Room Air 3 07/09/24 08:00 07/09/24 08:37 07/09/24 08:00 07/09/24 08:37 07/09/24 08:00 07/09/24 08:00 07/05/24 18:40 Narrative Exam General: Awake. Morbidly obese HEENT: Normocephalic, atraumatic, mucous membranes moist. Heart: Irregular rate and rhythm, no murmurs. Lungs: Clear to auscultation with no wheezing or crackles. Abdomen: Soft, nondistended, nontender, positive bowel sounds. ?No guarding or rebound tenderness. Neurologic: Alert and oriented x3, no gross neurological deficit, and patient able to move all 4 extremities. Extremities: No edema. Skin: No rash or ecchymoses. Objective Labs 07/09/24 04:47 07/09/24 07:00 Labs: Laboratory Results - last 24 hr 07/08/24 07/08/24 07/08/24 11:50 16:00 18:55 WBC RBC Hgb Hct MCV MCH MCHC RDW Std Deviation Plt Count Neut % (Auto) Lymph % (Auto) [place] % (Auto) Eos % (Auto) Baso % (Auto) Neut # (Auto) Lymph # (Auto) [place] # (Auto) Eos # (Auto) Baso # (Auto) Immature Gran # (Auto) Absolute Nucleated RBC Immature Gran % Nucleated RBC % Sodium 123 L 124 L 124 L Potassium Chloride Carbon Dioxide Anion Gap BUN Creatinine Estim Creat Clear Calc eGFR BUN/Creatinine Ratio Glucose Calculated Osmolality Calcium Corrected Calcium Phosphorus Magnesium Total Bilirubin AST ALT Alkaline Phosphatase Total Protein Albumin Globulin Albumin/Globulin Ratio 07/08/24 07/09/24 07/09/24 21:53 00:36 04:47 WBC 5.4 RBC 3.66 L Hgb 12.6 L Hct 35.8 L MCV 98 MCH 34.4 MCHC 35.2 RDW Std Deviation 45.5 H Plt Count 202 D Neut % (Auto) 70 Lymph % (Auto) 14 [place] % (Auto) 13 H Eos % (Auto) 2 Baso % (Auto) 1 Neut # (Auto) 3.7 Lymph # (Auto) 0.7 L [place] # (Auto) 0.7 Eos # (Auto) 0.1 Baso # (Auto) 0.1 Immature Gran # (Auto) 0.03 H Absolute Nucleated RBC 0.00 Immature Gran % 1 H Nucleated RBC % 0 Sodium 125 L 128 L 127 L Potassium 3.6 Chloride 95 L Carbon Dioxide 23.1 Anion Gap 9 BUN 6 L Creatinine 0.7 Estim Creat Clear Calc 143.1 eGFR > 60 BUN/Creatinine Ratio 9 L Glucose 94 Calculated Osmolality 252 L Calcium 8.1 L Corrected Calcium 8.7 Phosphorus 3.5 Magnesium 2.1 Total Bilirubin 1.2 AST 81 H ALT 93 H Alkaline Phosphatase 82 Total Protein 6.1 Albumin 3.3 L Globulin 2.8 Albumin/Globulin Ratio 1.2 07/09/24 07:00 WBC RBC Hgb Hct MCV MCH MCHC RDW Std Deviation Plt Count Neut % (Auto) Lymph % (Auto) [place] % (Auto) Eos % (Auto) Baso % (Auto) Neut # (Auto) Lymph # (Auto) [place] # (Auto) Eos # (Auto) Baso # (Auto) Immature Gran # (Auto) Absolute Nucleated RBC Immature Gran % Nucleated RBC % Sodium 128 L Potassium Chloride Carbon Dioxide Anion Gap BUN Creatinine Estim Creat Clear Calc eGFR BUN/Creatinine Ratio Glucose Calculated Osmolality Calcium Corrected Calcium Phosphorus Magnesium Total Bilirubin AST ALT Alkaline Phosphatase Total Protein Albumin Globulin Albumin/Globulin Ratio Quality Measures Quality Measures VTE prophylaxis Advance care planning discussed with:: patient Assessment & Plan Assessment Current Active Medications: Generic Name Dose Route Start Last Admin Trade Name Freq PRN Reason Stop Dose Admin Acetaminophen 650 mg 07/07/24 10:58 Acetaminophen 325 Mg Tablet PO 07/31/24 20:03 Q6H PRN Pain and Fever >100.3 Diltiazem HCl 480 mg 07/06/24 09:00 07/09/24 08:36 Diltiazem Cd 120 Mg Capcr PO 08/05/24 08:59 480 mg Q24H ANTONY Administration Lisinopril 40 mg 07/06/24 09:00 07/09/24 08:37 Lisinopril 20 Mg Tablet PO 08/05/24 08:59 40 mg DAILY ANTONY Administration Multivitamins 1 tab 07/02/24 09:00 07/09/24 08:37 Multivitamins Tablet PO 08/01/24 08:59 1 tab QDAY ANTONY Administration Nicotine 14 mg 07/03/24 14:15 07/09/24 08:38 Nicotine Patch 14 Mg/24 Hr Patch.Td24 TOP 08/02/24 14:14 14 mg QDAY ANTONY Administration Pantoprazole Sodium 40 mg 07/04/24 21:00 07/09/24 08:37 Pantoprazole Inj 40 Mg Vial IV 08/03/24 20:59 40 mg BID ANTONY Administration Phenol/Menthol 0 ml 07/07/24 10:57 Phenol/Na Phenolate (Chloraseptic) [place] 180 Ml Btl PO 08/06/24 10:56 Q6HR PRN SORE THROAT Rivaroxaban 20 mg 07/02/24 17:30 07/08/24 16:52 Rivaroxaban 10 Mg Tablet PO 08/01/24 17:29 20 mg WSUPPER ANTONY Administration Scopolamine 1 mg 07/04/24 16:00 07/07/24 16:13 Scopolamine 1 Mg Tdsy TOP 08/03/24 15:59 1 mg Q3D ANTONY Administration Sodium Chloride 1 gm 07/06/24 22:00 07/09/24 05:26 Sodium Chloride 1 Gm Tablet PO 08/05/24 21:59 1 gm TID ANTONY Administration Sucralfate 1 gm 07/08/24 12:00 07/09/24 05:26 Sucralfate 1 Gm Tablet PO 08/07/24 11:59 1 gm QID ANTONY Administration Plan 68-year-old male with past medical history of morbid obesity, hypertension, hyperlipidemia, atrial fibrillation on Xarelto, chronic alcoholism presented to the hospital with chief complaints of weakness in the lower extremities and having multiple falls since 3 days and admitted for hyponatremia. Sodium 128 today. Will discharge home on salt tablets BID for 1 week. Follow-up with PCP and nephrology within 1-2 weeks. Hyponatremia Hypochloremia Likely beer potomania on admission in the setting of chronic alcoholism, likely could be having mild chronic hyponatremia. History of alcoholism and reports consuming 12?13 beers daily and minimal food intake. On home HYDROCHLOROTHIAZIDE for 10 years. Presented with bilateral lower extremity weakness and multiple falls. He denies fever, nausea, vomiting or diarrhea. Admission sodium 109, osmolality 218. TSH, free T4 and GLUCOSE were WNL. Continued on 3% hypertonic saline, salt tablets BID, and fluid restrictions. Sodium 123 today after additional salt tab given this AM. ? Continue fluid restriction to 1500 cc daily ? Continue salt tablets TID ? Discontinue 3% hypertonic at 30 cc ? Discharge with salt tablets BID for 1 week ? Renally dose meds, avoid overdiuresis and NEPHROTOXINS ? Daily CMP Acute on Chronic severe Hyponatremia A-fib Elevated transaminases Prominent pancreatic head Alcohol Use Disorder Hypertension Hyperlipidemia Hx of NISREEN Hx of morbid obesity Nicotine dependence Managed by primary team. Thank you for allowing us to involved in the care of the patient. Patient case was discussed with attending, Dr. Campbell. Charo Cunningham DO PGYI Attending Provider Attestation/Addendum Patient seen and examined with resident physician Dr. Mancilla. Note reviewed, agree with findings and recommendations. Patient sodium 128 with Hypertonic saline. Patient completely alert awake and oriented. Suspect underlying SIADH. dc home on salt tablets to 3 times daily. Continue fluid restriction. Plan of care discussed with primary team
[2024-07-09 12:00] VITALS: BP 128/82; PULSE 81; PULSE 96; RESP 16; TEMP 36.2; O2SAT 97
--- NOTE | 2024-07-09 12:14 | ESDS_ITS ---
Planned Discharge Date 07/09/24 DS: Providers Provider Date of admission: 07/01/24 20:04 Primary care physician: Physician No Primary/Family Admitting Provider: Mariusz Martin MD Attending Provider on Admission: Pasquale Watson DO Consults: 07/02/24 00:47 [facility] Referral - Knowledge Deficit Routine Comment: Positive screening for knowledge deficit needs. 07/02/24 06:39 Consult to Nephrology Routine Comment: hyponatremia Consulting Provider: Mya Campbell 07/02/24 09:43 Consult to Cylinder Machine Operator Stat Comment: hyponatremia Consulting Provider: Miguel Ángel Fitzpatrick 07/04/24 13:16 Referral Physical Therapy Routine Comment: Physician Instructions: 07/04/24 17:35 Consult to Gastroenterology Stat Comment: GIB, coffee geound emesis Consulting Provider: Destinee Hernandez Attending Provider on DC: Kate Zayas MD Discharging Provider: Kate Zayas MD DS: Diagnosis Problem List Completed Was Problem List Reviewed/Reconciled?: Yes Hospital Course Hospital Course Hospital course: 68-year-old male with past medical history of hypertension on 3 medications, hyperlipidemia, obesity, history of A-fib on Xarelto who was admitted for severe symptomatic hyponatremia secondary to beer potomania as well as medication side effects. Patient's home medication was hydrochlorothiazide, also patient was drinking 12 packs of beer daily. On arrival patient's sodium was 109. Patient was admitted to telemetry for close monitoring. Sodium was frequently checked, nephrology was involved in the care, patient received hypertonic saline infusion during hospital stay, which was switched to p.o. tablets. Hydrochlorothiazide was held. However hospital course was complicated with episode of GI bleed, hemoglobin was stable, patient started on Protonix, GI was involved in the care, had a EGD done which revealed esophageal ulcers and duodenitis. Patient condition significantly improved during hospital stay, mentation is at baseline, blood pressure is controlled, Currently sodium is in acceptable range, patient will be discharged today, with the salt tablets 1 mg twice daily for 1 week, also take pantoprazole and sucralfate to address esophageal ulcers and duodenitis. Follow-up outpatient with PCP in 1 week after discharge, continue taking diltiazem and lisinopril for blood pressure control. We will discontinue hydrochlorothiazide in setting of hyponatremia. Plan is to follow-up outpatient with nephrology and PCP in 1 week after discharge. All questions and concerns were addressed. Patient verbalized understanding. #Symptomatic hypotonic hyponatremia in the setting of beer potomania and hydrochlorothiazide side effect?resolved #GI bleed/esophageal ulcers/severe duodenitis #History of A-fib, rate controlled, continue Xarelto #Alcohol abuse disorder. Patient care was discussed with attending physician Dr. Walter Zayas MD PGY-2 Time Spent with Patient Time attestation: Total time spent providing and/or coordinating discharge services: Exam Vital Signs Temp Pulse Resp BP Pulse Ox O2 Del Method O2 Flow Rate 97.2 F 96 16 128/82 97 Room Air 3 07/09/24 12:00 07/09/24 12:00 07/09/24 12:00 07/09/24 12:07/09/24 12:07/09/24 12:07/05/24 18:40 Narrative Exam GENERAL: no acute distress, AAO x3, obese HEENT: Head AT/ NC. Mucous membranes moist. PERRL. NECK: Supple, no lymphadenopathy, no carotid bruits. CARDIOVASCULAR: RRR. Normal S1/S2, No m/r/g. No pitting edema of bilateral LEs. RESPIRATORY: CTAB. No wheezing, rhonchi, crackles. GASTROINTESTINAL: Abdomen soft, non tender no palpable masses. Bowel sounds present in all 4 quadrants. MUSCULOSKELETAL:? No cyanosis or edema, no visible joint swelling. NEUROLOGICAL: CN II-XII grossly intact. No focal deficits. Sensation intact, symmetric. PSYCHIATRIC: Awake and alert, not agitated, normal mood and affect. INTEGUMENTARY: No obvious rashes, no jaundice, normal turgor. Discharge Plan Plan Patient Disposition: Home w/HOME HEALTH Patient condition on transfer: Stable Care Plan Goals: You will be discharged on following medications: Salt tabs 1 g twice times daily for a week, please follow up with PCP and repeat CMP(labs) in 1 week after discharge Take Protonix 40 mg daily , avoid spicy food , follow peptic ulcer diet take Sucralfate 1 gram tablets 4 times daily as needed, seperate from other medications by at least 1-2 hours before and after most oral medications STOP Hydrochlorothiazide, due to low sodium continue the rest of home medications Please follow-up with your PCP within 1-2 weeks. Follow up with nephrology (kidney doctor) in 1-2 weeks after discharge monitor blood pressure at home, you may need additional medication if Blood pressure runs high. Return to the ED if develop new or worsening symptoms. Prescriptions/Referrals Prescriptions/Med Rec: New sucralfate 1 gram Tablet 1 g PO QID 7 Days Qty: 28 0RF sodium chloride 1,000 mg Tablet,Soluble 1,000 mg PO BID 7 Days Qty: 14 0RF pantoprazole [Protonix] 40 mg tablet,delayed release (DR/EC) 40 mg PO QDAY 30 Days Qty: 30 0RF Continued diltiazem HCl 240 mg capsule,extended release 24hr 480 mg PO Q24H Patient Comments: TAKE TWO (2) CAPSULES BY MOUTH ONCE A DAY cholecalciferol (vitamin D3) 50 mcg (2,000 unit) capsule 50 mcg PO DAILY Patient Comments: TAKE 2000 UNITS ( 1 capsule) BY MOUTH ONCE A DAY lisinopril 40 mg tablet 40 mg PO DAILY Patient Comments: TAKE ONE (1) TABLET BY MOUTH ONCE A DAY FOR HIGH BLOOD PRESSURE Xarelto 20 mg tablet 20 mg PO Q24H Patient Comments: TAKE ONE (1) TABLET by MOUTH ONCE A DAY Discontinued hydrochlorothiazide 12.5 mg tablet 12.5 mg PO DAILY Patient Comments: TAKE ONE (1) TABLET BY MOUTH ONCE A DAY Referrals: No Primary/Family,Physician [Primary Care Provider] - Patient/Caregiver Discharge Instructions Discharge Activity: as per physical therapy Education Materials: Upper GI Endoscopy, Hyponatremia Dc, ED Hyponatremia Print Language: Ma[place] Stand Alone Forms: Anna Award Info., Patient Portal Info Letter Discharge Order Discharge Orders: Discharge (Routine); Ordered 07/09/24 Ordered By: Estefania Eugene Quality Discharge Quality Measures VTE prophylaxis Attestestation MD Attestation I have discussed and was present for the essential components of the discharge history, physical examination, diagnosis, and discharge treatment plan with the resident. I agree with the patient's discharge care as documented by the resident and amended herein by me. Benton Watson DO. The patient understood all discharge instructions, all questions were answered satisfactorily. The patient was instructed to return to the Emergency Department is symptoms worsened or persisted. Although this document has been carefully reviewed, there may still be some phonetic and other typographical errors. These errors are purely grammatical due to imperfections in the software program and should not be construed in any way to compromise the substance of the patient's medical care during this visit.
--- NOTE | 2024-07-09 13:47 | ESPR_ITS ---
Documentation for date of: 07/09/24 Subjective Subjective Interval history: Slight drop in hemoglobin hematocrit but no signs of any active bleeding agree with the discharge planning Exam Vital Signs Temp Pulse Resp BP Pulse Ox O2 Del Method O2 Flow Rate 97.2 F 96 16 128/82 97 Room Air 3 07/09/24 12:00 07/09/24 12:00 07/09/24 12:00 07/09/24 12:00 07/09/24 12:00 07/09/24 12:00 07/05/24 18:40 Objective Labs 07/09/24 04:47 07/09/24 07:00 Labs: Laboratory Results - last 24 hr 07/08/24 07/08/24 07/08/24 16:00 18:55 21:53 WBC RBC Hgb Hct MCV MCH MCHC RDW Std Deviation Plt Count Neut % (Auto) Lymph % (Auto) [place] % (Auto) Eos % (Auto) Baso % (Auto) Neut # (Auto) Lymph # (Auto) [place] # (Auto) Eos # (Auto) Baso # (Auto) Immature Gran # (Auto) Absolute Nucleated RBC Immature Gran % Nucleated RBC % Sodium 124 L 124 L 125 L Potassium Chloride Carbon Dioxide Anion Gap BUN Creatinine Estim Creat Clear Calc eGFR BUN/Creatinine Ratio Glucose Calculated Osmolality Calcium Corrected Calcium Phosphorus Magnesium Total Bilirubin AST ALT Alkaline Phosphatase Total Protein Albumin Globulin Albumin/Globulin Ratio 07/09/24 07/09/24 07/09/24 00:36 04:47 07:00 WBC 5.4 RBC 3.66 L Hgb 12.6 L Hct 35.8 L MCV 98 MCH 34.4 MCHC 35.2 RDW Std Deviation 45.5 H Plt Count 202 D Neut % (Auto) 70 Lymph % (Auto) 14 [place] % (Auto) 13 H Eos % (Auto) 2 Baso % (Auto) 1 Neut # (Auto) 3.7 Lymph # (Auto) 0.7 L [place] # (Auto) 0.7 Eos # (Auto) 0.1 Baso # (Auto) 0.1 Immature Gran # (Auto) 0.03 H Absolute Nucleated RBC 0.00 Immature Gran % 1 H Nucleated RBC % 0 Sodium 128 L 127 L 128 L Potassium 3.6 Chloride 95 L Carbon Dioxide 23.1 Anion Gap 9 BUN 6 L Creatinine 0.7 Estim Creat Clear Calc 143.1 eGFR > 60 BUN/Creatinine Ratio 9 L Glucose 94 Calculated Osmolality 252 L Calcium 8.1 L Corrected Calcium 8.7 Phosphorus 3.5 Magnesium 2.1 Total Bilirubin 1.2 AST 81 H ALT 93 H Alkaline Phosphatase 82 Total Protein 6.1 Albumin 3.3 L Globulin 2.8 Albumin/Globulin Ratio 1.2 Impressions Impression: # esophageal ulceration # gastritis anemia blood loss # Posthemorrhagic anemia Agree with discharge planning on PPIs Follow-up with the primary care physician No GI follow-up necessary Assessment & Plan A&P Narrative # Hematemesis in the setting of chronic liver disease secondary to alcoholism Plan Agree with octreotide infusion and IV Protonix Consent obtained for fiberoptic esophagogastroduodenoscopy with possible therapeutic intervention possible biopsy under intravenous moderate sedation N.p.o. 6 AM tomorrow Serial CBC Other medical problems include # Hyponatremia # Chronic liver disease secondary to alcohol # Right foot pain # Fatty liver with hepatomegaly Thank you very much for the opportunity to participate in care of this patient Time Spent With Patient Time: Total time spent is greater than 50% in coordination of care (as documented) at patient's floor/unit and/or counseling patient:
[2024-07-11 06:59] LABS: Osmolality, Urine* 83 mOsm/kg (50-1200)
--- NOTE | 2024-07-11 08:44 | PC.CC ---
Addendum entered by Denys Del Valle RN 07/11/24 09:07: I called pt at [phone]. It is not working at this time and [facility] Called pt's medical decision maker, sister Monica @ [phone]. She stated pt is going back to his home on this Thursday. I informed her no HH will follow him for 4 days only. If pt is going back, he can make appointment with his PCP in his home town and ask PCP for HH referral. Pt has Medicare which will not be a problem. HH referral is canceled. Original Note: spoke to Annamaria BELLAMY on HH needs for the pt. I found need to make an appointment with [facility]. Patient does not have a p.c.p. so pt was agreeable to follow up with the [facility]. Patient will only be staying in town temporarily and then returning to [facility] with family.
== END 2024-07-09 14:45 | disposition home health service (06) | DRG 640 ==
LOC: SERX 19:04 → SERHOLD 20:41 → S2NX 22:31
PROVIDERS: Internal Medicine; Specialist; Student in an Organized Health Care Education/Training Program; Admitting Provider Internal Medicine; Emergency Provider Emergency Medicine; Visit Provider Student in an Organized Health Care Education/Training Program
PROC: 0DJ08ZZ Inspection of Upper Intestinal Tract, Via Natural or Artificial Opening Endoscopic (ICD-10-PCS; CPT 43239; principal; 2024-07-05 15:30)
DX: E87.1 Hypo-osmolality and hyponatremia (principal); J18.9 Pneumonia, unspecified organism; K22.11 Ulcer of esophagus with bleeding; K29.71 Gastritis, unspecified, with bleeding; K29.81 Duodenitis with bleeding; Z68.41 Body mass index [BMI] 40.0-44.9, adult; D62 Acute posthemorrhagic anemia; E78.5 Hyperlipidemia, unspecified; E66.01 Morbid (severe) obesity due to excess calories; I48.91 Unspecified atrial fibrillation; I10 Essential (primary) hypertension; R74.01 Elevation of levels of liver transaminase levels; G47.33 Obstructive sleep apnea (adult) (pediatric); E86.1 Hypovolemia; K70.9 Alcoholic liver disease, unspecified; F10.20 Alcohol dependence, uncomplicated; K76.0 Fatty (change of) liver, not elsewhere classified; F17.220 Nicotine dependence, chewing tobacco, uncomplicated; E87.8 Other disorders of electrolyte and fluid balance, not elsewhere classified; R29.6 Repeated falls; Z79.01 Long term (current) use of anticoagulants; Z79.899 Other long term (current) drug therapy; Z60.8 Other problems related to social environment; Z63.4 Disappearance and death of family member; R20.2 Paresthesia of skin
CPT/HCPCS: 36415; 70450; 71045; 76705; 80048; 80053; 80061; 80307; 81001; 82436; 82533; 83036; 83735; 83880; 83935; 84100; 84133; 84295; 84300; 84439; 84443; 84484; 85014; 85018; 85025; 85610; 85730; 87205; 87493; 87811; 93005; 96360; 97162; 99285; J0360; J0696; J2250; J2354; J2405; J2470; J2597; J2765; J7030; J7040; J7050; J7060; J7070; J7131; A9270